=== PATIENT | male | born 1935 | race Caucasian/White ===

== ENCOUNTER 2017-05-28 02:15 | Inpatient (IN) ==
[2017-05-28] MEDS ORDERED: ALUM/MAG/SIMETH/LIDO VISC 1:1 30 ML BOTTLE PO STA (03:00)
[2017-05-28] MEDS ORDERED: ONDANSETRON 4 MG/2 ML VIAL IV STA (03:00)
[2017-05-28] MEDS ORDERED: FUROSEMIDE 40 MG/4 ML VIAL IV STA (03:00)
[2017-05-28] MEDS ORDERED: NITROGLYCERIN 2% OINT 1 INCH/GM PACK TOP STA (03:00)
[2017-05-28] MEDS ORDERED: methylPREDNISolone SOD SUC 125 MG/2 ML VIAL IV STA (03:00)
[2017-05-28] MEDS ORDERED: MORPHINE 2 MG/1 ML SYRINGE IV STA (03:00)
[2017-05-28] MEDS ORDERED: ASPIRIN 325 MG TABLET PO STA (03:00)
--- NOTE | 2017-05-28 03:04 | EKG Report ---
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
[2017-05-28 03:12] LABS: Basophils % 0.4 % (0.0-0.8); Eosinophils # 0.2 10*3/uL (0.0-0.87); Eosinophils % 4.1 % (0.00-10.9); Hematocrit 27.8 VOL% (42.0-52.0); Hemoglobin 8.8 GM/DL (14.0-18.0); Immature Granulocytes % 0.4 %; Immature Granulocytes Absolute 0.02 #; Lymphocytes # 1.3 10*3/uL (1.4-4.0); Lymphocytes % 25.5 % (21.2-54.2); Mean Corpuscular HGB Conc 31.7 GM/DL (32-36); Mean Corpuscular Hemoglobin 24 PG (27-34); Mean Corpuscular Volume 75.7 FL (87-102); Monocytes # 0.5 10*3/uL (0.11-0.8); Monocytes % 9.2 % (1.7-12.7); Neutrophils # 3.1 10*3/uL (1.4-7.4); Neutrophils % 60.4 % (38.7-73.9); Platelet Count 121 T/CUMM (130-400); Red Blood Count 3.67 MC/CUMM (3.8-5.5); Red Cell Distribution Width 17.9 % (9.3-17.3); White Blood Count 5.1 T/CUMM (4-12)
[2017-05-28 03:20] LABS: PT Patient Result 10.7 SECS
[2017-05-28] MEDS ORDERED: NITROGLYCERIN 2% OINT 1 INCH/GM PACK TOP ONE (03:26)
[2017-05-28] MEDS ORDERED: ONDANSETRON 4 MG/2 ML VIAL ONE (03:27)
[2017-05-28] MEDS ORDERED: ASPIRIN 325 MG TABLET ONE (03:27)
[2017-05-28] MEDS ORDERED: MORPHINE 2 MG/1 ML SYRINGE ONE (03:27)
[2017-05-28] MEDS ORDERED: ALUM/MAG/SIMETH/LIDO VISC 1:1 30 ML BOTTLE PO ONE (03:27)
[2017-05-28] MEDS ORDERED: methylPREDNISolone SOD SUC 125 MG/2 ML VIAL ONE (03:27)
[2017-05-28] MEDS ORDERED: FUROSEMIDE 100 MG/10 ML VIAL ONE (03:27)
[2017-05-28 03:41] LABS: Albumin 3.4 G/DL (3.4-5.0); Bilirubin,Total 0.6 MG/DL (0.2-1.0); Calcium 8.5 MG/DL (8.5-10.1); Magnesium 2.2 MG/DL (1.8-2.4); Osmolality,Calculated 284.2 MOS/KG (273-304); Potassium 3.6 MMOL/L (3.5-5.1); Total Protein 7.2 G/DL (6.4-8.3)
--- NOTE | 2017-05-28 03:47 | Emergency Department Note ---
Whitney Dennis Rolonda, am scribing for, and in the presence of, Murphy Arnold MD 03:26. Clayton Dennis Charles R, MD, personally performed the services described in this documentation, ascribed by Tello Olsno in my presence, and it is both accurate and complete 347 . Arrival - Arrival Chief Complaint: Chest Pain Stated Complaint: chest pain ED Nursing Triage Note: patient c/o chest pain for a week with sob, denies n/ v. states he has pain throughout whole body and elevated blood sugar. Mode of Arrival: Wheelchair Limitations: No Limitations Source: Patient, Old Records Reviewed, RN Notes Reviewed Time Seen by Provider: 05/28/17 02:39 - History of Present Illness HPI Narrative: Pt is a 81 y/o male who presents to the ED via wheelchair with c/o chest pain with an onset of x1 week. Pt has a PMHx of DM, HTN, SD, CABG, and Cardiovascular problems. Pt's states that pt's blood sugar has been 437 since 0900 tonight and they could not get it lowered. Nurses' note states that pt has pain throughout entire body during time of triage; during exam pt was pain free. Pt denies smoking but confirms SOB. He is f/u by Dr. Dexter. No other complaint/pain in ED. Onset (ago): week(s) Consistency: constant Severity: moderate Severity scale (1-10): 4 Allergies/Adverse Reactions: Allergies Allergy/AdvReac Type Severity Reaction Status Date / Time No Known Allergies Allergy Verified 05/21/17 18:29 Home Medications: Home Medications Medication Instructions Recorded Confirmed Type Aspirin [Ecotrin] 81 mg PO DAILY 04/16/15 05/28/17 History Colestipol [Colestid] 1 gm PO DAILY 04/16/15 05/28/17 History Furosemide Tab [Lasix Tab] 20 mg PO BID 04/16/15 05/28/17 History Gabapentin [Gralise] 600 mg PO TID 04/16/15 05/28/17 History LORazepam [Lorazepam] 1 mg PO QID 04/16/15 05/28/17 History Multivit-Min/FA/Lycopen/Lutein 1 each PO DAILY 04/16/15 05/28/17 History [Centrum Silver Tablet] Rosuvastatin [Crestor] 20 mg PO BEDTIME 04/16/15 05/28/17 History HYDROcodone/ACETAMIN 10-325 [[place] 1 tablet PO Q4H 07/01/15 05/28/17 History 10-325] Tamsulosin [Flomax] 0.4 mg PO BID 07/01/15 05/28/17 History Carvedilol 3.125 mg PO BID 12/02/16 05/28/17 History Isosorbide Mononitrate [Isosorbide 60 mg PO DAILY 12/02/16 05/28/17 History Mononitrate ER] Nitroglycerin [Nitroglycerin SL 0.4 mg SL Q5M PRN 12/02/16 05/28/17 History Tab] Sitagliptin Phosphate [Januvia] 50 mg PO DAILY 12/02/16 05/28/17 History Ciprofloxacin HCl [Ciprofloxacin 500 mg PO BID 05/21/17 05/28/17 History Tab] Cyanocobalamin Tab [Vitamin B12 500 mcg PO DAILY 05/21/17 05/28/17 History Tab] Folic Acid Tab 0.4 mg PO DAILY 05/21/17 05/28/17 History Insulin Glargine,Hum.rec.anlog 10 unit SUBCUT BID 05/21/17 05/28/17 History [Tomyrna Cheek] Levothyroxine Sodium 50 mcg PO DAILY 05/21/17 05/28/17 History Potassium 99 mg PO DAILY 05/21/17 05/28/17 History fentaNYL 25 MCG/HR PATCH 1 patch TRANSDERM Q3DAY #5 patch 05/21/17 05/28/17 Rx [Duragesic 25 Patch] Review of System - Review of System 12 point system: reviewed and no additional remarkable complaints except as stated - Review of System Constitutional: Absent: chills, fever Eyes: Absent: redness Respiratory: Present: respiratory distress (SOB) Cardiovascular: Present: chest pain Gastrointestinal: Absent: abdominal pain, nausea, vomiting Genitourinary male: Absent: urgency Musculoskeletal: Absent: arm pain, back pain, leg pain, neck pain Neurological: Absent: headache, weakness, numbness Psychiatric: Absent: anxiety Medical,Surgical,& Family Hx - Medical History Cardio: History of: CAD (CABG), Hypertension, SD (last one in 2014), Cardiovascular Problems (DR FERMIN) Psychological: History of: Anxiety Disorders, Depression Neurology: History of: Peripheral Neuropathy (in feet) No history of: Seizures HEENT: History of: Eye Problem (macular degeneration), Dental Problems (FULL SET ), Glaucoma Endocrine: History of: Diabetes Mellitus (IDDM) (oral meds), Diabetes Mellitus ( NIDDM), Dyslipidemia Respiratory: History of: COPD, Pneumonia (3-4 years ago) No history of: Asthma Genitourinary: History of: Bladder Problem (DR VALERIO) Gastrointestinal: History of: GERD Musculoskeletal: History of: Back/Neck Problems (TPC DR DC BACK INJ SCHEDULED), Herniated Disk, Musculoskeletal Problems (left total knee surgery on 06/26/15) Other: History of: Cancer (SKIN CANCER ARMS) - Surgical History Cardiac Surgeries: Sugical HX of: Cardiac Surgery (CABG twice) Abdominal Surgeries: Surgical HX of: Appendectomy, Colonoscopy, EGD Orthopedic Surgeries: Surgical HX of;: Total Knee Replacement (BILATERAL) - Family History Family History: Reports;: Family Diabetes (father) - Social History Smoking Status: Never smoker Frequency of Alcohol Use: None Type of Drug Use: None Exam Vital Signs: Vital Signs Temperature 98.2 F 05/28/17 02:17 Pulse Rate 152 H 05/28/17 02:17 Respiratory Rate 20 05/28/17 02:17 Blood Pressure 110/79 05/28/17 02:17 O2 Sat by Pulse Oximetry 79 L 05/28/17 02:17 - General General appearance: alert, in no apparent distress - Head Head exam: Present: atraumatic, normocephalic - Eye Eye exam: Present: PERRL, EOMI - ENT ENT exam: Present: mucous membranes moist. Absent: mucous membranes dry - Neck Neck exam: Present: full ROM. Absent: tenderness - Chest Chest inspection: Present: symmetric chest wall rise. Absent: tenderness - Respiratory Respiratory exam: Present: rales (bilaterally), rhonchi - Cardiovascular Cardiovascular exam: Present: regular rate, normal rhythm, normal heart sounds. Absent: bradycardia - Abdominal Exam Abdominal exam: Present: soft, normal bowel sounds. Absent: tenderness - Extremities Exam Extremities exam: Present: pedal edema (+1 bilaterally) - Back Exam Back exam: Present: full ROM. Absent: tenderness - Neurological Exam Neurological exam: Present: alert, oriented X3, CN II-XII intact - Psychiatric Psychiatric exam: Present: normal affect, normal mood - Skin Skin exam: Present: warm, dry, intact, normal color. Absent: rash Course - Consultations Consultation #1: Hospitalist will admit patient Time: 04:04 Results - Labs CBC & BMP: 05/28/17 03:03 05/28/17 03:03 Lab Results: I have reviewed the patients labs Disposition Clinical Impression: Chest pain, Debility, Chronic pain, Acute dyspnea, COPD (chronic obstructive pulmonary disease), Uncontrolled diabetes mellitus, Coronary artery disease Case discussed with: patient, patient's family Disposition: Still a Patient Condition: Stable Time of Disposition: 03:56
[2017-05-28] MEDS ORDERED: ONDANSETRON 4 MG/2 ML VIAL IV PRN (04:28)
[2017-05-28] MEDS ORDERED: GLUCAGON 1 MG VIAL IM PRN (04:28)
[2017-05-28] MEDS ORDERED: DEXTROSE 50% 25 GM/50 ML VIAL IV PRN (04:28)
[2017-05-28] MEDS ORDERED: ACETAMINOPHEN 325 MG TABLET PO PRN (04:28)
[2017-05-28] MEDS ORDERED: NITROGLYCERIN SL 0.4 MG TABLET SL PRN (04:39)
[2017-05-28 04:40] LABS: Anisocytosis 1+; Hypochromasia Slight
[2017-05-28 04:41] LABS: Ovalocytes 1+; Platelet Estimate Adequate
--- NOTE | 2017-05-28 04:57 | Hospitalist History & Physical ---
Assessment and Plan - Time spent with patient Time spent with patient: Greater than 30 minutes (1) Chest pain at rest Status: Acute Current Visit: Yes (2) Diabetes Status: Acute Current Visit: Yes (3) UVALDO (acute kidney injury) Status: Acute Current Visit: Yes (4) Chronic pain Status: Acute Assessment and plan: Admit to the hospitalist service on telemetry. Consult cardiology. Continue home medications as appropriate. Accu-Cheks before meals and at bedtime with supplemental sliding scale. Obtain hemoglobin A1c,TSH, and lipid profile in the a.m. Trend cardiac enzymes. Avoid adding additional pain medication as patient is currently wearing a patch. Elevated creatinine likely related to diabetes and use of diuretics. Avoid nephrotoxic medications as much as possible. Current Visit: Yes History of Present Illness Chief complaint: Chest Pain History of present illness: Mr. Akbar is a 81 year old male with a past medical history coronary artery disease with CABG 2, uncontrolled diabetes, COPD with home oxygen use, chronic pain, recently diagnosed urinary tract infection on Cipro presented to the ED today with chief complaint of chest pain. The patient reports having pain all over his body but today has started to have a chest pain. He reports the pain is a "tight type". Patient is currently free of pain. He reports that he was doing nothing when the pain began to the at the bedside indicates that they were having a slight argument. Initial workup in ED included H&H of 8.8 27.8, INR 1, sodium 134, creatinine 1.5, glucose 383, AST 48,troponin less than 0.015. He will be admitted to the telemetry unit under service of hospitalist for further evaluation treatment. Home Medications Medication Instructions Recorded Confirmed Type Aspirin [Ecotrin] 81 mg PO DAILY 04/16/15 05/28/17 History Colestipol [Colestid] 1 gm PO DAILY 04/16/15 05/28/17 History Furosemide Tab [Lasix Tab] 20 mg PO BID 04/16/15 05/28/17 History Gabapentin [Gralise] 600 mg PO TID 04/16/15 05/28/17 History LORazepam [Lorazepam] 1 mg PO QID 04/16/15 05/28/17 History Multivit-Min/FA/Lycopen/Lutein 1 each PO DAILY 04/16/15 05/28/17 History [Centrum Silver Tablet] Rosuvastatin [Crestor] 20 mg PO BEDTIME 04/16/15 05/28/17 History HYDROcodone/ACETAMIN 10-325 [[place] 1 tablet PO Q4H 07/01/15 05/28/17 History 10-325] Tamsulosin [Flomax] 0.4 mg PO BID 07/01/15 05/28/17 History Carvedilol 3.125 mg PO BID 12/02/16 05/28/17 History Isosorbide Mononitrate [Isosorbide 60 mg PO DAILY 12/02/16 05/28/17 History Mononitrate ER] Nitroglycerin [Nitroglycerin SL 0.4 mg SL Q5M PRN 12/02/16 05/28/17 History Tab] Sitagliptin Phosphate [Januvia] 50 mg PO DAILY 12/02/16 05/28/17 History Ciprofloxacin HCl [Ciprofloxacin 500 mg PO BID 05/21/17 05/28/17 History Tab] Cyanocobalamin Tab [Vitamin B12 500 mcg PO DAILY 05/21/17 05/28/17 History Tab] Folic Acid Tab 0.4 mg PO DAILY 05/21/17 05/28/17 History Insulin Glargine,Hum.rec.anlog 10 unit SUBCUT BID 05/21/17 05/28/17 History [Petty Cheek] Levothyroxine Sodium 50 mcg PO DAILY 05/21/17 05/28/17 History Potassium 99 mg PO DAILY 05/21/17 05/28/17 History fentaNYL 25 MCG/HR PATCH 1 patch TRANSDERM Q3DAY #5 patch 05/21/17 05/28/17 Rx [Duragesic 25 Patch] Allergies Allergy/AdvReac Type Severity Reaction Status Date / Time No Known Allergies Allergy Verified 05/21/17 18:29 Medical,Surgical,& Family Hx - Medical History Cardio: History of: CHF, CAD (CABG), Hypertension, VT (last one in 2014), Cardiovascular Problems (DR FERMIN) Psychological: History of: Anxiety Disorders, Depression Neurology: History of: Peripheral Neuropathy (in feet) No history of: Seizures HEENT: History of: Eye Problem (macular degeneration), Dental Problems (FULL SET ), Glaucoma Endocrine: History of: Diabetes Mellitus (NIDDM), Dyslipidemia Respiratory: History of: COPD, Pneumonia (3-4 years ago) No history of: Asthma Genitourinary: History of: Bladder Problem (DR VALERIO) Gastrointestinal: History of: GERD Musculoskeletal: History of: Back/Neck Problems (TPC DR DC BACK INJ SCHEDULED), Herniated Disk, Musculoskeletal Problems (left total knee surgery on 06/26/15) Other: History of: Cancer (SKIN CANCER ARMS) - Surgical History Cardiac Surgeries: Sugical HX of: Cardiac Surgery (CABG twice) Abdominal Surgeries: Surgical HX of: Appendectomy, Colonoscopy, EGD Orthopedic Surgeries: Surgical HX of;: Total Knee Replacement (BILATERAL) - Family History Family History: Reports;: Family Diabetes (father) - Social History Smoking Status: Former smoker Have you smoked in the last 12 months: No Frequency of Alcohol Use: Occasionally Type of Drug Use: None Marital Status: Lives With:: Spouse Functional capacity: uses cane/walker - Constitutional Constitutional: Present: frequent falls - EENT Eyes: Present: loss of vision - Cardiovascular Cardiovascular: Present: chest pain at rest, dyspnea - Respiratory Respiratory: Present: dyspnea on exertion - Neurological Neurological: Present: frequent falls Exam - Constitutional Vitals: Period Temp Pulse Resp BP Sys/Lowry Pulse Ox Last 24 Hr 88 20 166/68 98 General appearance: no acute distress, morbidly obese - Head Head exam: Present: normal inspection - Eye Pupils: Present: JOZEF - ENT ENT exam: Present: normal exam, other (Dentures) - Neck Neck exam: Present: normal inspection - Respiratory Respiratory exam: Present: clear to auscultation bilaterally, decreased breath sounds - Cardiovascular Cardiovascular exam: Present: regular rate and rhythm - GI/Abdominal GI/Abdominal exam: Present: normal bowel sounds - Extremities Exam Extremities exam: Present: normal inspection - Neurological Exam Neurological exam: Present: alert, oriented X3 - Psychiatric Psychiatric exam: Present: normal affect - Skin Skin exam: Present: normal color Results - Labs CBC & BMP: 05/28/17 03:03 05/28/17 03:03 - EKG EKG results: interpreted by VIVIAN KLINE Quality Measures - VTE Contraindication to Pharmacological VTE Prophylaxis: Clinical assessment deems Pt at low risk, no prophalaxis needed
--- NOTE | 2017-05-28 07:17 | XRay Report ---
Portable chest. Indication: Chest pain. Comparison: October 25, 2014. The heart is enlarged with left ventricular hypertrophy. Post median sternotomy. The pulmonary vasculature is normal. The lung martínez are clear. No pneumothorax or pleural effusion. Calcified 10 mm granuloma in the left midlung field, stable. Degenerative changes are present within the spinal column and shoulders. Impression: Stable cardiomegaly. PROCEDURE INTERPRETED AT [facility] DEPARTMENT OF RADIOLOGY Final Report Signed by: Dr. Sandra Aguilar
[2017-05-28] MEDS: LEVOTHYROXINE 50 MCG TABLET PO SCH (08:04)
[2017-05-28 08:50] LABS: Risk Ratio 2.73; Thyroid Stimulating Hormone 4.55 uIU/ml (0.358-3.74); VLDL CHOLESTEROL 48.4 MG/DL
[2017-05-28] MEDS ORDERED: TAMSULOSIN 0.4 MG CAPSULE PO SCH (09:00)
[2017-05-28] MEDS ORDERED: sitaGLIPtin 100 MG TABLET PO SCH (09:00)
[2017-05-28] MEDS ORDERED: INSULIN GLARGINE 100 UNIT/ML SUBCUT SCH (09:00)
[2017-05-28] MEDS: INSULIN REGULAR 100 UNIT/ML SUBCUT SCH ×2 (09:17→11:52)
[2017-05-28] MEDS: CYANOCOBALAMIN 500 MCG TABLET PO SCH (09:19)
[2017-05-28] MEDS: CARVEDILOL 3.125 MG TABLET PO SCH ×2 (09:19→20:04)
[2017-05-28] MEDS: ASPIRIN EC 81 MG TABLET PO SCH (09:19)
[2017-05-28] MEDS: GABAPENTIN 600 MG TABLET PO SCH ×3 (09:19→20:04)
[2017-05-28] MEDS: MULTIVITAMIN (CENTRUM) TABLET PO SCH (09:19)
[2017-05-28] MEDS: COLESTIPOL 1 GM TABLET PO SCH (09:19)
[2017-05-28] MEDS: ISOSORBIDE MONONITRATE 60 MG TABLET PO SCH (09:19)
[2017-05-28] MEDS: POTASSIUM CHLORIDE 20 MEQ TABLET PO SCH (09:19)
[2017-05-28] MEDS: LORazepam 1 MG TABLET PO SCH ×3 (09:20→16:02)
[2017-05-28] MEDS: FOLIC ACID 0.4 MG TABLET PO SCH (09:20)
[2017-05-28] MEDS: FUROSEMIDE 20 MG TABLET PO SCH ×2 (09:20→16:03)
--- NOTE | 2017-05-28 10:12 | EKG Report ---
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
[2017-05-28] MEDS ORDERED: INSULIN REGULAR 100 UNIT/ML IV ONE ×2 (11:34→15:49)
--- NOTE | 2017-05-28 14:16 | Hospitalist Progress Note ---
Assessment and Plan (1) Chest pain Problem details: Acute coronary syndrome is unlikely. Continue to cycle cardiac enzymes, monitor with telemetry, check LVEF and wall motion on echocardiogram. Status: Acute Current Visit: Yes (2) COPD (chronic obstructive pulmonary disease) Problem details: Acute exacerbation. No identified precipitating factors. Patient is not likely have significant CO2 retention. Continue low flow nasal cannula supplemental oxygen therapy. Patient is not receiving empiric antibiotic therapy at present. If his clinical status does not improve within the next 24 hours consider the addition of empiric antibiotics. Status: Acute Current Visit: Yes (3) Acute kidney injury Problem details: Today's BUN/creatinine measure 15 and 1.5 respectively GFR calculates 57 mL/min. No previous BMP lab data is available for comparison. Patient received IV Lasix dose in emergency department. Recheck BMP in a.m. Status: Acute Current Visit: Yes (4) Type 2 diabetes mellitus Problem details: Poor glucose control. Bedside glucose checks have been greater than 400 with one reading greater than 500 mg percent. I recommend increase basal Lantus dose twice daily. Add mealtime NovoLog. Continue sliding scale NovoLog protocol coverage. Hemoglobin A1c 12.9% Status: Acute Current Visit: Yes (5) Chronic pain Problem details: Patient is wearing topical fentanyl. I recommend topical diclofenac gel with Lidoderm topical patch. Continue gabapentin. This is my recommendation however patient insists that he must continue Duragesic and that his primary care physician has tried multiple nonnarcotic combinations and only Duragesic helps to relieve his pain. Status: Acute Current Visit: Yes (6) Hypothyroidism Problem details: Modest elevation of TSH level within normal range free T4 level. Recommend continue 50 mcg daily Synthroid supplementation. Recheck lab panel within the next 2-3 months. Status: Acute Current Visit: Yes (7) Obesity Problem details: BMI is reported at 29.4 kg I requested repeat measurement suspected patient's body weight is much higher than 100 kg Status: Acute Current Visit: Yes Hospitalist: Subjective Interval history: Patient is a 81-year-old male admitted for evaluation of chest pain complaints. Patient has a history of coronary artery disease with previous bypass surgery. He also has chronic lung disease requiring home supplemental oxygen use. Cardiology consultation already ordered. Exam - Constitutional Vitals: Period Temp Pulse Resp BP Sys/Lowry Pulse Ox Last 24 Hr 97.2 F-98.3 F 77-152 19-20 110-181/66-94 79-100 General appearance: over weight - Head Head exam: Present: normal inspection - Eye Eye exam: Present: EOMI Pupils: Present: JOZEF - Neck Neck exam: Absent: meningismus, tenderness - Respiratory Respiratory exam: Present: clear to auscultation bilaterally. Absent: accessory muscle use, chest wall tenderness, rales, wheezes - Cardiovascular Cardiovascular exam: Present: regular rate and rhythm - GI/Abdominal GI/Abdominal exam: Present: normal bowel sounds, other (Protuberant with large pannus) - Extremities Exam Extremities exam: Present: normal inspection. Absent: calf tenderness, edema - Neurological Exam Neurological exam: Present: alert, oriented X3 - Psychiatric Psychiatric exam: Present: normal affect, normal mood. Absent: agitated, anxious, depressed - Skin Skin exam: Present: normal color, warm, dry. Absent: petechiae, rash Results - Labs CBC & BMP: 05/28/17 03:03 05/28/17 08:21 - Diagnostic Findings Procedure: Chest x-ray: other (Today's study reported enlarged cardiac silhouette with LVH. Previous sternotomy changes. Normal pulmonary vasculature. Clear lung martínez. Calcified 10 mm granuloma left mid lung field. Stable compared with previous chest x-ray October 25, 2014.) Quality Measures - VTE Contraindication to Pharmacological VTE Prophylaxis: Clinical assessment deems Pt at low risk, no prophalaxis needed
[2017-05-28 15:38] LABS: Osmolality,Calculated 294.9 MOS/KG (273-304); Potassium 4.6 MMOL/L (3.5-5.1)
[2017-05-28] MEDS: fentaNYL 25 MCG/HR PATCH TRANSDERM SCH (16:02)
[2017-05-28] MEDS ORDERED: INSULIN REGULAR 100 UNIT/ML SUBCUT SCH (16:30)
[2017-05-28] MEDS: INSULIN REGULAR DRIP 100 ML IV SCH (17:35)
--- NOTE | 2017-05-28 17:42 | Cardiology Consult Note ---
Assessment and Plan - Time spent with patient Time spent with patient: Greater than 30 minutes (1) Chest pain in adult Status: Acute Assessment and plan: Differential diagnosis of chest pain would be chest wall pain, esophageal, gastritis, gallbladder disease, stress or anxiety, or less likely CAD. The fact he has had several hours of pain and negative cardiac isoenzymes make the chance that this is CAD/ACS much less likely Plan/recommendation: Continued good treatment for CAD-optimal medical therapy, as you are doing Aspirin per day-as you are doing- Treat chest wall pain-tramadol, Tylenol, gabapentin Avoid Aleve because of his renal dysfunction In the course of the evaluation, it was decided the patient needed to have an echocardiogram for the pts management. It was ordered. I will review it. It was not done today, so it could be done tomorrow. GI cocktail Does not need a heart cath At some point, when his diabetes better and he gets outpatient we can do an outpatient stress test with Cardiolite. It does not seem to be urgent at this time. The above was discussed with the patient and his and daughter. They voiced understanding and agree with the plan. Thank you for allowing me to participate in this patient's care Current Visit: Yes (2) Elevated serum creatinine Status: Acute Current Visit: Yes (3) COPD (chronic obstructive pulmonary disease) Status: Acute Current Visit: Yes (4) Chronic pain Problem details: Patient is wearing topical fentanyl. I recommend topical diclofenac gel with Lidoderm topical patch. Continue gabapentin. This is my recommendation however patient insists that he must continue Duragesic and that his primary care physician has tried multiple nonnarcotic combinations and only Duragesic helps to relieve his pain. Status: Acute Current Visit: Yes (5) Coronary artery disease Status: Acute Current Visit: Yes (6) Debility Status: Acute Current Visit: Yes (7) Hypothyroidism Problem details: Modest elevation of TSH level within normal range free T4 level. Recommend continue 50 mcg daily Synthroid supplementation. Recheck lab panel within the next 2-3 months. Status: Acute Current Visit: Yes (8) Obesity Problem details: BMI is reported at 29.4 kg I requested repeat measurement suspected patient's body weight is much higher than 100 kg Status: Acute Current Visit: Yes (9) Type 2 diabetes mellitus Problem details: Poor glucose control. Bedside glucose checks have been greater than 400 with one reading greater than 500 mg percent. I recommend increase basal Lantus dose twice daily. Add mealtime NovoLog. Continue sliding scale NovoLog protocol coverage. Hemoglobin A1c 12.9% Status: Acute Current Visit: Yes (10) Uncontrolled diabetes mellitus Status: Acute Current Visit: Yes History of Present Illness - Data of Consult Patient: new to practice Consult date: 05/28/17 Requesting Physician: Fernando Camarena III Primary care physician: Fabiola Dexter - Consult Narrative Reason for consult: Evaluate chest pain History of present illness: Mr. 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 Fermin-they no longer see him, or open to seeing a new nursing home admissions director Patient is 81. He had 2 prior bypass. Last one was over 5 years ago. He does not remember when the last one was done but it was years ago.. He comes in hurting all over. But he particular hard in his chest and took some nitro. It had partial relief. It was a tightness across his chest. It did not radiate to his arms neck or back. It lasted 2 hours so he came in. No associated shortness breath, nausea or diaphoresis. No dysphagia odynophagia or GE reflux. His reflux is controlled with his reflux medication Past medical history: Coronary bypass grafting-2 times, last one many years ago Diabetes 2 total knee replacement Overweight Does have snoring apnea and excessive daytime somnolence-he says he had a workup that was done at [facility]-he was told he did not have sleep apnea-? Does not smoke cigarettes or drink alcohol at this time Has COPD There is a family history of coronary disease diabetes SPH: no, cannot, yes, yes and yes. [facility] Review of systems is remarkable for macular degeneration and cataracts. CC: Fernando Camarena III - Home Medications and Allergies Home Medications: Home Medications Medication Instructions Recorded Confirmed Type Aspirin [Ecotrin] 81 mg PO DAILY 04/16/15 05/28/17 History Colestipol [Colestid] 1 gm PO DAILY 04/16/15 05/28/17 History Furosemide Tab [Lasix Tab] 20 mg PO BID 04/16/15 05/28/17 History Gabapentin [Gralise] 600 mg PO TID 04/16/15 05/28/17 History LORazepam [Lorazepam] 1 mg PO QID 04/16/15 05/28/17 History Multivit-Min/FA/Lycopen/Lutein 1 each PO DAILY 04/16/15 05/28/17 History [Centrum Silver Tablet] Rosuvastatin [Crestor] 20 mg PO BEDTIME 04/16/15 05/28/17 History HYDROcodone/ACETAMIN 10-325 [Lizella 1 tablet PO Q4H 07/01/15 05/28/17 History 10-325] Tamsulosin [Flomax] 0.4 mg PO BID 07/01/15 05/28/17 History Carvedilol 3.125 mg PO BID 12/02/16 05/28/17 History Isosorbide Mononitrate [Isosorbide 60 mg PO DAILY 12/02/16 05/28/17 History Mononitrate ER] Nitroglycerin [Nitroglycerin SL 0.4 mg SL Q5M PRN 12/02/16 05/28/17 History Tab] Sitagliptin Phosphate [Januvia] 50 mg PO DAILY 12/02/16 05/28/17 History Ciprofloxacin HCl [Ciprofloxacin 500 mg PO BID 05/21/17 05/28/17 History Tab] Cyanocobalamin Tab [Vitamin B12 500 mcg PO DAILY 05/21/17 05/28/17 History Tab] Folic Acid Tab 0.4 mg PO DAILY 05/21/17 05/28/17 History Insulin Glargine,Hum.rec.anlog 10 unit SUBCUT BID 05/21/17 05/28/17 History [Petty Cheek] Levothyroxine Sodium 50 mcg PO DAILY 05/21/17 05/28/17 History Potassium 99 mg PO DAILY 05/21/17 05/28/17 History fentaNYL 25 MCG/HR PATCH 1 patch TRANSDERM Q3DAY #5 patch 05/21/17 05/28/17 Rx [Duragesic 25 Patch] Allergies/Adverse Reactions: Allergies Allergy/AdvReac Type Severity Reaction Status Date / Time No Known Allergies Allergy Verified 05/21/17 18:29 12 point system: reviewed and no additional remarkable complaints except as stated (A 12 point review of systems is negative except for as mentioned in HPI. ) Medical,Surgical,& Family Hx - Medical History Cardio: History of: CHF, CAD (CABG), Hypertension, SD (last one in 2014), Cardiovascular Problems (DR FERMIN) Psychological: History of: Anxiety Disorders, Depression Neurology: History of: Peripheral Neuropathy (in feet) No history of: Seizures HEENT: History of: Eye Problem (macular degeneration), Dental Problems (FULL SET ), Glaucoma Endocrine: History of: Diabetes Mellitus (IDDM) (oral meds), Diabetes Mellitus ( NIDDM), Dyslipidemia Respiratory: History of: COPD, Pneumonia (3-4 years ago) No history of: Asthma Genitourinary: History of: Bladder Problem (DR VALERIO) Gastrointestinal: History of: GERD Musculoskeletal: History of: Back/Neck Problems (TPC DR DC BACK INJ SCHEDULED), Herniated Disk, Musculoskeletal Problems (left total knee surgery on 06/26/15) Other: History of: Cancer (SKIN CANCER ARMS) - Surgical History Cardiac Surgeries: Sugical HX of: Cardiac Surgery (CABG twice) Abdominal Surgeries: Surgical HX of: Appendectomy, Colonoscopy, EGD Orthopedic Surgeries: Surgical HX of;: Total Knee Replacement (BILATERAL) - Family History Family History: Reports;: Family Diabetes (father) - Social History Smoking Status: Former smoker Frequency of Alcohol Use: Occasionally Type of Drug Use: None Marital Status: Lives With:: Spouse Physical Examination Vital Signs Temp Pulse Resp BP Pulse Ox 98.2 F 152 H 20 110/79 79 L 05/28/17 02:17 05/28/17 02:17 05/28/17 02:17 05/28/17 02:17 05/28/17 02:17 Exam: HEENT: Pupils equal, reactive to light and accommodation Neck: NoJVD or bruit Lungs clear to auscultation Heart: Regular rhythm rate with normal S1 and S2. Apical S4 Abdomen: No hepatosplenomegaly Spine/extremities: No clubbing, cyanosis, or edema Neuro: Nonfocal Psych: No depression or anxiety No chest wall tenderness Femoral pulses are 3+. Foot pulses are 2+. Result/EKG - Labs CBC & BMP: 05/28/17 03:03 05/28/17 14:57 Lab Results: I have reviewed the past 24 hour labs Labs: Laboratory Results - last 24 hr 05/28/17 05/28/17 05/28/17 03:03 03:03 03:03 WBC RBC Hgb Hct MCV MCH MCHC RDW Plt Count Neut % (Auto) Lymph % (Auto) [place] % (Auto) Eos % (Auto) Baso % (Auto) Neut # (Auto) Lymph # (Auto) [place] # (Auto) Eos # (Auto) Baso # (Auto) Immature Gran % Nucleated RBC % Immature Gran # Nucleated RBCs # Platelet Estimate Hypochromasia Anisocytosis Ovalocytes INR 1.0 PT Patient/Control Mix 10.7 Sodium 134 L Potassium 3.6 Chloride 98 Carbon Dioxide 29 Anion Gap 10.6 BUN 15 Creatinine 1.50 H GFR Calculation 57 BUN/Creatinine Ratio 10.00 Glucose 383 H POC Glucose Hemoglobin A1c Calculated Osmolality 284.2 Calcium 8.5 Magnesium 2.2 Total Bilirubin 0.60 AST 48 H ALT 28 Alkaline Phosphatase 92 Troponin I < 0.015 B-Natriuretic Peptide Total Protein 7.2 Albumin 3.4 Globulin 3.8 H Albumin/Globulin Ratio 0.8 L Triglycerides Cholesterol LDL Cholesterol VLDL Cholesterol HDL Cholesterol Heart Disease Risk Ratio Lipase 264.0 Free T4 TSH 3rd Generation 05/28/17 05/28/17 05/28/17 03:03 03:03 07:10 WBC 5.1 RBC 3.67 L Hgb 8.8 L Hct 27.8 L MCV 75.7 L MCH 24 L MCHC 31.7 L RDW 17.9 H Plt Count 121 L Neut % (Auto) 60.4 Lymph % (Auto) 25.5 [place] % (Auto) 9.2 Eos % (Auto) 4.1 Baso % (Auto) 0.4 Neut # (Auto) 3.1 Lymph # (Auto) 1.3 L [place] # (Auto) 0.5 Eos # (Auto) 0.2 Baso # (Auto) 0.0 Immature Gran % 0.4 Nucleated RBC % 0.0 Immature Gran # 0.02 Nucleated RBCs # 0.00 Platelet Estimate Adequate Hypochromasia Slight Anisocytosis 1+ Ovalocytes 1+ INR PT Patient/Control Mix Sodium Potassium Chloride Carbon Dioxide Anion Gap BUN Creatinine GFR Calculation BUN/Creatinine Ratio Glucose POC Glucose Hemoglobin A1c Calculated Osmolality Calcium Magnesium Total Bilirubin AST ALT Alkaline Phosphatase Troponin I < 0.015 B-Natriuretic Peptide 54 Total Protein Albumin Globulin Albumin/Globulin Ratio Triglycerides Cholesterol LDL Cholesterol VLDL Cholesterol HDL Cholesterol Heart Disease Risk Ratio Lipase Free T4 TSH 3rd Generation 05/28/17 05/28/17 05/28/17 07:10 07:10 07:10 WBC RBC Hgb Hct MCV MCH MCHC RDW Plt Count Neut % (Auto) Lymph % (Auto) [place] % (Auto) Eos % (Auto) Baso % (Auto) Neut # (Auto) Lymph # (Auto) [place] # (Auto) Eos # (Auto) Baso # (Auto) Immature Gran % Nucleated RBC % Immature Gran # Nucleated RBCs # Platelet Estimate Hypochromasia Anisocytosis Ovalocytes INR PT Patient/Control Mix Sodium Potassium Chloride Carbon Dioxide Anion Gap BUN Creatinine GFR Calculation BUN/Creatinine Ratio Glucose POC Glucose Hemoglobin A1c 12.9 H Calculated Osmolality Calcium Magnesium Total Bilirubin AST ALT Alkaline Phosphatase Troponin I B-Natriuretic Peptide Total Protein Albumin Globulin Albumin/Globulin Ratio Triglycerides 242 H Cholesterol 112 LDL Cholesterol 42.0 VLDL Cholesterol 48.4 HDL Cholesterol 41 Heart Disease Risk Ratio 2.73 Lipase Free T4 1.42 TSH 3rd Generation 4.550 H 05/28/17 05/28/17 05/28/17 08:09 08:21 08:21 WBC RBC Hgb Hct MCV MCH MCHC RDW Plt Count Neut % (Auto) Lymph % (Auto) [place] % (Auto) Eos % (Auto) Baso % (Auto) Neut # (Auto) Lymph # (Auto) [place] # (Auto) Eos # (Auto) Baso # (Auto) Immature Gran % Nucleated RBC % Immature Gran # Nucleated RBCs # Platelet Estimate Hypochromasia Anisocytosis Ovalocytes INR PT Patient/Control Mix Sodium Potassium Chloride Carbon Dioxide Anion Gap BUN Creatinine GFR Calculation BUN/Creatinine Ratio Glucose 577 H* POC Glucose > 500 H* Hemoglobin A1c Calculated Osmolality Calcium Magnesium Total Bilirubin AST ALT Alkaline Phosphatase Troponin I < 0.015 B-Natriuretic Peptide Total Protein Albumin Globulin Albumin/Globulin Ratio Triglycerides Cholesterol LDL Cholesterol VLDL Cholesterol HDL Cholesterol Heart Disease Risk Ratio Lipase Free T4 TSH 3rd Generation 05/28/17 05/28/17 05/28/17 11:29 11:32 14:57 WBC RBC Hgb Hct MCV MCH MCHC RDW Plt Count Neut % (Auto) Lymph % (Auto) [place] % (Auto) Eos % (Auto) Baso % (Auto) Neut # (Auto) Lymph # (Auto) [place] # (Auto) Eos # (Auto) Baso # (Auto) Immature Gran % Nucleated RBC % Immature Gran # Nucleated RBCs # Platelet Estimate Hypochromasia Anisocytosis Ovalocytes INR PT Patient/Control Mix Sodium 129 L Potassium 4.6 Chloride 92 L Carbon Dioxide 27 Anion Gap 14.6 BUN 23 H Creatinine 2.00 H GFR Calculation 40 BUN/Creatinine Ratio 11.00 Glucose 694 H* POC Glucose > 500 H* > 500 H* Hemoglobin A1c Calculated Osmolality 294.9 Calcium 8.0 L Magnesium Total Bilirubin AST ALT Alkaline Phosphatase Troponin I B-Natriuretic Peptide Total Protein Albumin Globulin Albumin/Globulin Ratio Triglycerides Cholesterol LDL Cholesterol VLDL Cholesterol HDL Cholesterol Heart Disease Risk Ratio Lipase Free T4 TSH 3rd Generation 05/28/17 05/28/17 05/28/17 14:59 15:02 15:41 WBC RBC Hgb Hct MCV MCH MCHC RDW Plt Count Neut % (Auto) Lymph % (Auto) [place] % (Auto) Eos % (Auto) Baso % (Auto) Neut # (Auto) Lymph # (Auto) [place] # (Auto) Eos # (Auto) Baso # (Auto) Immature Gran % Nucleated RBC % Immature Gran # Nucleated RBCs # Platelet Estimate Hypochromasia Anisocytosis Ovalocytes INR PT Patient/Control Mix Sodium Potassium Chloride Carbon Dioxide Anion Gap BUN Creatinine GFR Calculation BUN/Creatinine Ratio Glucose POC Glucose > 500 H* > 500 H* > 500 H* Hemoglobin A1c Calculated Osmolality Calcium Magnesium Total Bilirubin AST ALT Alkaline Phosphatase Troponin I B-Natriuretic Peptide Total Protein Albumin Globulin Albumin/Globulin Ratio Triglycerides Cholesterol LDL Cholesterol VLDL Cholesterol HDL Cholesterol Heart Disease Risk Ratio Lipase Free T4 TSH 3rd Generation 05/28/17 17:01 WBC RBC Hgb Hct MCV MCH MCHC RDW Plt Count Neut % (Auto) Lymph % (Auto) [place] % (Auto) Eos % (Auto) Baso % (Auto) Neut # (Auto) Lymph # (Auto) [place] # (Auto) Eos # (Auto) Baso # (Auto) Immature Gran % Nucleated RBC % Immature Gran # Nucleated RBCs # Platelet Estimate Hypochromasia Anisocytosis Ovalocytes INR PT Patient/Control Mix Sodium Potassium Chloride Carbon Dioxide Anion Gap BUN Creatinine GFR Calculation BUN/Creatinine Ratio Glucose POC Glucose > 500 H* Hemoglobin A1c Calculated Osmolality Calcium Magnesium Total Bilirubin AST ALT Alkaline Phosphatase Troponin I B-Natriuretic Peptide Total Protein Albumin Globulin Albumin/Globulin Ratio Triglycerides Cholesterol LDL Cholesterol VLDL Cholesterol HDL Cholesterol Heart Disease Risk Ratio Lipase Free T4 TSH 3rd Generation - EKG EKG results: interpreted by me Quality Measures - VTE Contraindication to Pharmacological VTE Prophylaxis: Clinical assessment deems Pt at low risk, no prophalaxis needed
[2017-05-28] MEDS: ROSUVASTATIN 20 MG TABLET PO SCH (20:04)
[2017-05-28] MEDS: INSULIN GLARGINE 100 UNIT/ML SUBCUT SCH (20:04)
[2017-05-28] MEDS ORDERED: SODIUM CHLORIDE 0.9% 500 ML IV ONE (23:28)
[2017-05-29] MEDS: INSULIN REGULAR DRIP 100 ML IV SCH ×2 (04:51→19:14)
[2017-05-29] MEDS: LEVOTHYROXINE 50 MCG TABLET PO SCH (06:05)
[2017-05-29] MEDS ORDERED: INSULIN REGULAR 100 UNIT/ML SUBCUT SCH ×2 (07:30→11:30)
--- NOTE | 2017-05-29 08:44 | Hospitalist Progress Note ---
Assessment and Plan - Time spent with patient Time spent with patient: Greater than 30 minutes (1) UVALDO (acute kidney injury) Status: Acute Assessment and plan: IVF. Cr in am. Current Visit: Yes (2) Anemia Status: Chronic Assessment and plan: Monitor H/H. Do Iron study, B12 and delong. Current Visit: Yes (3) Chest pain Status: Acute Assessment and plan: Resolved. Troponin negative. Echo ordered. Cards f/u. Current Visit: Yes (4) Coronary artery disease Status: Acute Assessment and plan: Resume home meds appropriately. Current Visit: Yes (5) Type 2 diabetes mellitus Problem details: Poor glucose control. Bedside glucose checks have been greater than 400 with one reading greater than 500 mg percent. I recommend increase basal Lantus dose twice daily. Add mealtime NovoLog. Continue sliding scale NovoLog protocol coverage. Hemoglobin A1c 12.9% Status: Acute Assessment and plan: Continue current treatment plan. Chemstip as scheduled. Current Visit: Yes (6) Hypothyroidism Problem details: Modest elevation of TSH level within normal range free T4 level. Recommend continue 50 mcg daily Synthroid supplementation. Recheck lab panel within the next 2-3 months. Status: Acute Assessment and plan: T4 WNL. Current Visit: Yes Hospitalist: Subjective Interval history: No chest pain since adm to hospital yesterday. Had scrotal pain this morning but resolved now. Troponin 2 set WNL yesterday. Cr 2.0 yesterday, will repeat Cr /BUN today. Echo ordered today. Exam - Constitutional Vitals: Period Temp Pulse Resp BP Sys/Lowry Pulse Ox Last 24 Hr 97.0 F-98.5 F 69-87 14-25 99-174/68-91 94-100 Exam: GENERAL: NAD, AAOx3. Pale. HEENT: Pupils equally round and reactive to light, conjunctivae clear.Oropharynx pink, with moist mucous membranes. Normal lips, teeth and gums. NECK: Supple without mass. HEART: RRR, no murmur. CHEST: Normal shape, good air movement, no retractions. CV: RRR, no murmurs, 2+ peripheral pulses LUNGS: Clear to auscultation; no rales, rhonchi, or wheezes. ABDOMEN: Soft, nontender, and no hepatosplenomegaly. SKIN: No rash or edema. LYMPH: No anterior or posterior cervical, or supraclavicular lymphadenopathy. NEURO: No gross motor deficits noted. Results - Labs CBC & BMP: 05/28/17 03:03 05/28/17 23:18 Quality Measures - VTE Contraindication to Pharmacological VTE Prophylaxis: Clinical assessment deems Pt at low risk, no prophalaxis needed
[2017-05-29 09:01] LABS: Calcium 8.7 MG/DL (8.5-10.1); Magnesium 2.5 MG/DL (1.8-2.4); Potassium 3.5 MMOL/L (3.5-5.1)
[2017-05-29 09:14] LABS: % Iron Saturation 4.6 % (18-50); Ferritin 26.9 ng/ml (26-388)
[2017-05-29 09:41] LABS: Folate > 24.0 NG/ML (5.4-24.0); Vitamin B12 1538 PG/ML (211-911)
[2017-05-29] MEDS: GABAPENTIN 600 MG TABLET PO SCH ×3 (09:54→20:18)
[2017-05-29] MEDS: MULTIVITAMIN (CENTRUM) TABLET PO SCH (09:54)
[2017-05-29] MEDS: COLESTIPOL 1 GM TABLET PO SCH (09:54)
[2017-05-29] MEDS: FOLIC ACID 0.4 MG TABLET PO SCH (09:54)
[2017-05-29] MEDS: POTASSIUM CHLORIDE 20 MEQ TABLET PO SCH (09:54)
[2017-05-29] MEDS: ISOSORBIDE MONONITRATE 60 MG TABLET PO SCH (09:54)
[2017-05-29] MEDS: FUROSEMIDE 20 MG TABLET PO SCH ×2 (09:54→17:47)
[2017-05-29] MEDS: CYANOCOBALAMIN 500 MCG TABLET PO SCH (09:54)
[2017-05-29] MEDS: CARVEDILOL 3.125 MG TABLET PO SCH ×2 (09:55→20:18)
[2017-05-29] MEDS: ASPIRIN EC 81 MG TABLET PO SCH (09:55)
[2017-05-29] MEDS: SODIUM CHLORIDE 0.9% 1,000 ML IV SCH (10:05)
[2017-05-29] MEDS: INSULIN GLARGINE 100 UNIT/ML SUBCUT SCH ×2 (10:11→21:10)
--- NOTE | 2017-05-29 12:05 | Cardiology Progress Note ---
Assessment and Plan (1) Chest pain in adult Status: Acute Assessment and plan: Differential diagnosis of chest pain would be chest wall pain, esophageal, gastritis, gallbladder disease, stress or anxiety, or less likely CAD. The fact he has had several hours of pain and negative cardiac isoenzymes make the chance that this is CAD/ACS much less likely Plan/recommendation: Continued good treatment for CAD-optimal medical therapy, as you are doing Aspirin per day-as you are doing- Treat chest wall pain-tramadol, Tylenol, gabapentin Avoid Aleve because of his renal dysfunction In the course of the evaluation, it was decided the patient needed to have an echocardiogram for the pts management. It was ordered. I will review it. It was not done today, so it could be done tomorrow. GI cocktail Does not need a heart cath At some point, when his diabetes better and he gets outpatient we can do an outpatient stress test with Cardiolite. It does not seem to be urgent at this time. The above was discussed with the patient and his and daughter. They voiced understanding and agree with the plan. Thank you for allowing me to participate in this patient's care 7: no more chest pain--probable was muscle skeletal or GI Troponins are negative No ACS Continue treatment for his hyperglycemia Echo is being done today, per request of hospitalist I will review it. Okay with me, from a cardiovascular standpoint, to move patient out of ICU when you deem best. Current Visit: Yes (2) Elevated serum creatinine Status: Acute Current Visit: Yes (3) COPD (chronic obstructive pulmonary disease) Status: Acute Current Visit: Yes (4) Chronic pain Problem details: Patient is wearing topical fentanyl. I recommend topical diclofenac gel with Lidoderm topical patch. Continue gabapentin. This is my recommendation however patient insists that he must continue Duragesic and that his primary care physician has tried multiple nonnarcotic combinations and only Duragesic helps to relieve his pain. Status: Acute Current Visit: Yes (5) Coronary artery disease Status: Acute Current Visit: Yes (6) Debility Status: Acute Current Visit: Yes (7) Hypothyroidism Problem details: Modest elevation of TSH level within normal range free T4 level. Recommend continue 50 mcg daily Synthroid supplementation. Recheck lab panel within the next 2-3 months. Status: Acute Current Visit: Yes (8) Obesity Problem details: BMI is reported at 29.4 kg I requested repeat measurement suspected patient's body weight is much higher than 100 kg Status: Acute Current Visit: Yes (9) Type 2 diabetes mellitus Problem details: Poor glucose control. Bedside glucose checks have been greater than 400 with one reading greater than 500 mg percent. I recommend increase basal Lantus dose twice daily. Add mealtime NovoLog. Continue sliding scale NovoLog protocol coverage. Hemoglobin A1c 12.9% Status: Acute Current Visit: Yes (10) Uncontrolled diabetes mellitus Status: Acute Current Visit: Yes Cardiology - PN: Subj Interval history: His chest pain is gone. Glucoses remain high. Exam (Progress Note) - Constitutional Vitals: Period Temp Pulse Resp BP Sys/Lowry Pulse Ox Last 24 Hr 97.0 F-98.5 F 69-87 12-25 99-181/67-105 92-100 Exam: HEENT: Pupils equal, reactive to light and accommodation Neck: NoJVD or bruit Lungs clear to auscultation Heart: Regular rhythm rate with normal S1 and S2. Apical S4 Abdomen: No hepatosplenomegaly Spine/extremities: No clubbing, cyanosis, or edema Neuro: Nonfocal Psych: No depression or anxiety Result/EKG - Labs CBC & BMP: 05/28/17 03:03 05/29/17 08:19 Lab Results: I have reviewed the past 24 hour labs Labs: Laboratory Results - last 24 hr 05/28/17 05/28/17 05/28/17 14:57 14:59 15:02 Sodium 129 L Potassium 4.6 Chloride 92 L Carbon Dioxide 27 Anion Gap 14.6 BUN 23 H Creatinine 2.00 H GFR Calculation 40 BUN/Creatinine Ratio 11.00 Glucose 694 H* POC Glucose > 500 H* > 500 H* Calculated Osmolality 294.9 Calcium 8.0 L Magnesium Iron TIBC % Saturation Ferritin Vitamin B12 Folate 05/28/17 05/28/17 05/28/17 15:41 17:01 18:42 Sodium Potassium Chloride Carbon Dioxide Anion Gap BUN Creatinine GFR Calculation BUN/Creatinine Ratio Glucose POC Glucose > 500 H* > 500 H* > 500 H* Calculated Osmolality Calcium Magnesium Iron TIBC % Saturation Ferritin Vitamin B12 Folate 05/28/17 05/28/17 05/28/17 19:38 22:02 23:04 Sodium Potassium Chloride Carbon Dioxide Anion Gap BUN Creatinine GFR Calculation BUN/Creatinine Ratio Glucose POC Glucose > 500 H* > 500 H* > 500 H* Calculated Osmolality Calcium Magnesium Iron TIBC % Saturation Ferritin Vitamin B12 Folate 05/28/17 05/29/17 05/29/17 23:18 00:49 02:12 Sodium Potassium Chloride Carbon Dioxide Anion Gap BUN Creatinine GFR Calculation BUN/Creatinine Ratio Glucose 516 H* POC Glucose 472 H 394 H Calculated Osmolality Calcium Magnesium Iron TIBC % Saturation Ferritin Vitamin B12 Folate 05/29/17 05/29/17 05/29/17 03:19 03:56 04:58 Sodium Potassium Chloride Carbon Dioxide Anion Gap BUN Creatinine GFR Calculation BUN/Creatinine Ratio Glucose POC Glucose 274 H 172 H 154 H Calculated Osmolality Calcium Magnesium Iron TIBC % Saturation Ferritin Vitamin B12 Folate 05/29/17 05/29/17 05/29/17 06:19 08:19 08:19 Sodium 136 Potassium 3.5 Chloride 99 Carbon Dioxide 29 Anion Gap 11.5 BUN 27 H Creatinine 1.30 GFR Calculation 68 BUN/Creatinine Ratio 20.00 Glucose 94 POC Glucose 107 H Calculated Osmolality 276.0 Calcium 8.7 Magnesium 2.5 H Iron 21 L TIBC 455 H % Saturation 4.6 L Ferritin 26.9 Vitamin B12 Folate 05/29/17 05/29/17 05/29/17 08:19 08:31 09:09 Sodium Potassium Chloride Carbon Dioxide Anion Gap BUN Creatinine GFR Calculation BUN/Creatinine Ratio Glucose POC Glucose 108 H 188 H Calculated Osmolality Calcium Magnesium Iron TIBC % Saturation Ferritin Vitamin B12 1538 H Folate > 24.0 H 05/29/17 10:56 Sodium Potassium Chloride Carbon Dioxide Anion Gap BUN Creatinine GFR Calculation BUN/Creatinine Ratio Glucose POC Glucose 228 H Calculated Osmolality Calcium Magnesium Iron TIBC % Saturation Ferritin Vitamin B12 Folate - EKG EKG results: interpreted by id Quality Measures - VTE Contraindication to Pharmacological VTE Prophylaxis: Clinical assessment deems Pt at low risk, no prophalaxis needed
--- NOTE | 2017-05-29 15:41 | ECHO Report ---
Murphy Akbar Exam Date: 05/29/2017 10:26 Referring Physician: Technologist: Ca Saucedo Age: 81 Ht (in): 73 Wt (lb): 223 Gender: M Exam Location: [facility] Echo Indications: obesity, hypothyroidism, UVALDO, Diabetes, CAD, chest pain, acute dyspnea BP: 128 / 90 HR: 69 Rhythm: Sinus Technical Quality: Technically difficult study IMPRESSIONS Mild concentric left ventricular hypertrophy with diastolic dysfunctionmildly decreased left ventricular systolic function, left ventricular ejection fraction estimated at > 55%. Moderately increased right ventricular size. The right atrium is mild - moderately enlarged. 3 + increased left atrial diameter. Mildly thickened mitral valve with mild mitral regurgitation. Aortic valve sclerosis without stenosis or regurgitation. Mild tricuspid valve regurgitation. Tricuspid regurgitation velocities suggest a PAP of 22 mmHg. Trivial pericardial effusion. MEASUREMENTS (Male / Female) Normal Values 2D ECHO LV Diastolic Diameter PLAX 5.1 cm 4.2 - 5.9 / 3.9 - 5.3 cm LV Systolic Diameter PLAX 3.3 cm LV Fractional Shortening PLAX 35.8 % IVS Diastolic Thickness 1.3 cm 0.6 - 1.0 / 0.6 - 0.9 cm LVPW Diastolic Thickness 1.3 cm 0.6 - 1.0 / 0.6 - 0.9 cm RV Internal Dim ED PLAX 3.9 cm Aortic Root Diameter 3.6 cm LA Systolic Diameter LX 5.7 cm 3.0 - 4.0 / 2.7 - 3.8 cm DOPPLER TR Peak Velocity 170.0 cm/s TR Peak Gradient 11.6 mmHg FINDINGS Left Ventricle Mildly increased septal wall thickness. Mild concentric left ventricular hypertrophy with diastolic dysfunctionmildly decreased left ventricular systolic function, left ventricular ejection fraction estimated at > 55%. Right Ventricle Moderately increased right ventricular size. Right Atrium The right atrium is mild - moderately enlarged. Left Atrium 3 + increased left atrial diameter. Mitral Valve Mildly thickened mitral valve with mild mitral regurgitation. Aortic Valve Aortic valve sclerosis without stenosis or regurgitation. Tricuspid Valve Morphologically normal tricuspid valve. Mild tricuspid valve regurgitation. Tricuspid regurgitation velocities suggest a PAP of 22 mmHg. Pulmonic Valve Morphologically normal pulmonic valve. Pericardium Trivial pericardial effusion. Aorta Normal size aortic root and proximal ascending aorta. Marshall Au MD (Electronically Signed) Final Date: 29 May 2017 15:40
[2017-05-29] MEDS ORDERED: IRON SUCROSE 200 MG in SODIUM CHLORIDE 0.9% 100 ML IV ONE (16:30)
[2017-05-29] MEDS: ROSUVASTATIN 20 MG TABLET PO SCH (20:18)
[2017-05-30] MEDS: SODIUM CHLORIDE 0.9% 1,000 ML IV SCH ×2 (00:33→11:57)
[2017-05-30] MEDS ORDERED: SODIUM CHLORIDE 0.9% 500 ML IV ONE (01:46)
[2017-05-30] MEDS ORDERED: GLUCAGON 1 MG VIAL IM PRN (02:27)
[2017-05-30] MEDS ORDERED: DEXTROSE 50% 25 GM/50 ML VIAL IV PRN (02:27)
[2017-05-30] MEDS: INSULIN REGULAR 100 UNIT/ML SUBCUT SCH ×5 (05:15→21:28)
[2017-05-30 06:14] LABS: Calcium 7.6 MG/DL (8.5-10.1); Magnesium 2.5 MG/DL (1.8-2.4); Osmolality,Calculated 285.5 MOS/KG (273-304); Potassium 3.8 MMOL/L (3.5-5.1)
[2017-05-30] MEDS: LEVOTHYROXINE 50 MCG TABLET PO SCH (06:19)
--- NOTE | 2017-05-30 08:06 | Cardiology Progress Note ---
<Cleo Cali E - Last Filed: 05/30/17 07:54> Assessment and Plan - Time spent with patient Time spent with patient: Greater than 30 minutes (1) Hypertension Status: Chronic Assessment and plan: SEE PLAN OF CARE LISTED BELOW Current Visit: Yes (2) Dyslipidemia Status: Chronic Assessment and plan: SEE PLAN OF CARE LISTED BELOW Current Visit: Yes (3) Debility Status: Chronic Assessment and plan: SEE PLAN OF CARE LISTED BELOW Current Visit: Yes (4) Chest pain Status: Acute Assessment and plan: SEE PLAN OF CARE LISTED BELOW Current Visit: Yes (5) Uncontrolled diabetes mellitus Status: Acute Assessment and plan: SEE PLAN OF CARE LISTED BELOW Current Visit: Yes (6) Coronary artery disease Status: Chronic Assessment and plan: SEE PLAN OF CARE LISTED BELOW Current Visit: Yes (7) UVALDO (acute kidney injury) Status: Resolved Assessment and plan: SEE PLAN OF CARE LISTED BELOW Current Visit: Yes (8) Chronic pain Problem details: Patient is wearing topical fentanyl. I recommend topical diclofenac gel with Lidoderm topical patch. Continue gabapentin. This is my recommendation however patient insists that he must continue Duragesic and that his primary care physician has tried multiple nonnarcotic combinations and only Duragesic helps to relieve his pain. Status: Chronic Assessment and plan: SEE PLAN OF CARE LISTED BELOW Current Visit: Yes (9) Hypothyroidism Problem details: Modest elevation of TSH level within normal range free T4 level. Recommend continue 50 mcg daily Synthroid supplementation. Recheck lab panel within the next 2-3 months. Status: Acute Assessment and plan: SEE PLAN OF CARE LISTED BELOW Current Visit: Yes (10) Obesity Problem details: BMI is reported at 29.4 kg I requested repeat measurement suspected patient's body weight is much higher than 100 kg Status: Chronic Assessment and plan: SEE PLAN OF CARE LISTED BELOW Current Visit: Yes (11) Anemia Status: Chronic Assessment and plan: SEE PLAN OF CARE LISTED BELOW Current Visit: Yes Cardiology - PN: Subj Interval history: [employer] [place]: DR. AU SUMMARY: Mr. Akbar, 81WM, with a history of known coronary artery disease (S/ P CABG twice, last was five years ago), hypertension, dyslipidemia, diabetes. He is retired from the [employer]. Admitted, May 28, 2017 for atypical chest pain. Blood glucose levels greater than 500 on arrival with acute kidney injury. Patient has been seen, evaluated by Dr. Au over the weekend. He is being treated for musculoskeletal chest discomfort. Cardiac biomarkers negative and EKG is stable. Chest pain has improved. Echo May 29, 2017: EF 55%, mild concentric LVH with mild diastolic dysfunction. MAY 30, 2017: Patient is doing well this morning. Chest pain has improved with Neurontin. Creatinine has also improved overnight as are blood glucose levels. At this point, continue treatment with current medications, follow labs. It has been recommended for patient to be scheduled for outpatient stress testing at discharge, follow-up appointment with Dr. Au. Okay to transfer to telemetry when okay with attending. Will further discuss with Dr. Brooke and await additional recommendations. ASSESSMENT/PLAN: 1. CHEST PAIN - improved with Neurontin, PPI. CIE negative, EKG stable. At discharge, will be scheduled for outpatient stress test and follow-up with Dr. Au. 2. KNOWN CAD (S/P CABG TWICE) - will attempt to located records and get additional details. Currently on aspirin, beta blockade, lipid-lowering agent. Avoiding HOA inhibitors for fear of worsening renal insufficiency. 3. HYPERTENSION - adequately controlled on low-dose beta blockade 4. DYSLIPIDEMIA - LDL 42. Continue lipid lowering agent. LDL at goal. Triglycerides 242. Will add [place] 3. 5. DIABETES - poorly controlled on arrival. Much improved since admitted 6. ANEMIA - will check H&H this morning. Continue low dose ASA. 7. ACUTE KIDNEY INJURY - creatinine normalized this morning. Initially, stage III presentation. Avoiding HOA for fear of worsening creatinine 8. HYPOTHYROIDISM - TSH elevated. Meds adjusted during this admission 9. CHRONIC PAIN - better controlled 10. DEBILITY - continue current plan of care. If PT has not been consulted will ask to work with patient Exam (Progress Note) - Constitutional Vitals: Period Temp Pulse Resp BP Sys/Lowry Pulse Ox Last 24 Hr 97.0 F-98.3 F 63-81 12-21 87-181/50-105 84-100 Exam: General: [Appears well with no apparent distress.] [Pleasant and cooperative. ] [Appears comfortable.] HEENT: [PERRL, normocephalic, atraumatic. Mucous membranes moist. No jaundice noted. Conjunctiva moist and clear, sclerae anicteric] Neck: No JVD/HJR, no thyromegaly or lymphadenopathy noted. No carotid bruit appreciated Cardiac: [Regular rate and rhythm.] [No murmur rub or gallop.] Lungs: [Clear to auscultation without accessory muscle use to assist the respiratory pattern.] Using oxygen intermittently Abdomen: Soft, bowel sounds normoactive. Nontender and nondistended. No abdominal bruit or thrill noted. No masses noted. Musculoskeletal: No fluid collection. Decreased range of motion is noted. Extremities: No clubbing, cyanosis noted. [ No edema noted.] Upper extremity pulses 2+. Lower extremity pulses 2+. Capillary refill less than 3 seconds. Skin: No unusual lesions or rashes. No skin breakdown appreciated. Neuro: Awake, alert and oriented 3. Moves all extremities well without hemiparesis or paralysis. No essential tremor is appreciated. Result/EKG - Labs CBC & BMP: 05/28/17 03:03 05/30/17 05:30 Lab Results: I have reviewed the past 24 hour labs Labs: Laboratory Results - last 24 hr 05/29/17 05/29/17 05/29/17 08:19 08:19 08:19 Sodium 136 Potassium 3.5 Chloride 99 Carbon Dioxide 29 Anion Gap 11.5 BUN 27 H Creatinine 1.30 GFR Calculation 68 BUN/Creatinine Ratio 20.00 Glucose 94 POC Glucose Calculated Osmolality 276.0 Calcium 8.7 Magnesium 2.5 H Iron 21 L TIBC 455 H % Saturation 4.6 L Ferritin 26.9 Vitamin B12 1538 H Folate > 24.0 H 05/29/17 05/29/17 05/29/17 08:31 09:09 10:56 Sodium Potassium Chloride Carbon Dioxide Anion Gap BUN Creatinine GFR Calculation BUN/Creatinine Ratio Glucose POC Glucose 108 H 188 H 228 H Calculated Osmolality Calcium Magnesium Iron TIBC % Saturation Ferritin Vitamin B12 Folate 05/29/17 05/29/17 05/29/17 12:09 13:41 15:46 Sodium Potassium Chloride Carbon Dioxide Anion Gap BUN Creatinine GFR Calculation BUN/Creatinine Ratio Glucose POC Glucose 224 H 200 H 106 Calculated Osmolality Calcium Magnesium Iron TIBC % Saturation Ferritin Vitamin B12 Folate 05/29/17 05/29/17 05/29/17 16:56 18:00 18:50 Sodium Potassium Chloride Carbon Dioxide Anion Gap BUN Creatinine GFR Calculation BUN/Creatinine Ratio Glucose POC Glucose 82 113 H 163 H Calculated Osmolality Calcium Magnesium Iron TIBC % Saturation Ferritin Vitamin B12 Folate 05/29/17 05/29/17 05/29/17 20:10 21:18 22:35 Sodium Potassium Chloride Carbon Dioxide Anion Gap BUN Creatinine GFR Calculation BUN/Creatinine Ratio Glucose POC Glucose 124 H 136 H 104 Calculated Osmolality Calcium Magnesium Iron TIBC % Saturation Ferritin Vitamin B12 Folate 05/29/17 05/30/17 05/30/17 23:35 00:32 01:34 Sodium Potassium Chloride Carbon Dioxide Anion Gap BUN Creatinine GFR Calculation BUN/Creatinine Ratio Glucose POC Glucose 71 L 103 143 H Calculated Osmolality Calcium Magnesium Iron TIBC % Saturation Ferritin Vitamin B12 Folate 05/30/17 05/30/17 05/30/17 02:25 04:47 05:30 Sodium 139 Potassium 3.8 Chloride 104 Carbon Dioxide 26 Anion Gap 12.8 BUN 27 H Creatinine 1.30 GFR Calculation 68 BUN/Creatinine Ratio 20.00 Glucose 164 H POC Glucose 143 H 200 H Calculated Osmolality 285.5 Calcium 7.6 L Magnesium 2.5 H Iron TIBC % Saturation Ferritin Vitamin B12 Folate 05/30/17 07:26 Sodium Potassium Chloride Carbon Dioxide Anion Gap BUN Creatinine GFR Calculation BUN/Creatinine Ratio Glucose POC Glucose 173 H Calculated Osmolality Calcium Magnesium Iron TIBC % Saturation Ferritin Vitamin B12 Folate - Diagnostic Findings Procedure: Chest x-ray: report reviewed by me - EKG EKG results: interpreted by me EKG shows: sinus rhythm Quality Measures - VTE Contraindication to Pharmacological VTE Prophylaxis: Clinical assessment deems Pt at low risk, no prophalaxis needed <Usman Limon Ihsan - Last Filed: 05/30/17 15:37> Cardiology - PN: Subj Interval history: The patient's chart was reviewed and patient was personally interviewed and examined by me. I discussed this case with Cleo Cali NP and agree with the above note and evaluation. From a cardiac standpoint he is stable and remains stable. He is doing well. His glucoses will be followed by the primary service. His vital signs are stable. General from a cardiac standpoint he remained stable. He is now on the floor and is progressing. Hopefully will be able to be discharged soon. He will be followed up by Dr. Au. There is consideration for stress testing as an outpatient this can be arranged at the time of his discharge. Exam (Progress Note) - Constitutional Vitals: Period Temp Pulse Resp BP Sys/Lowry Pulse Ox Last 24 Hr 97.0 F-98.0 F 63-81 13-30 85-157/43-83 91-100 Result/EKG - Labs CBC & BMP: 05/30/17 08:17 05/30/17 05:30 Labs: Laboratory Results - last 24 hr 05/29/17 05/29/17 05/29/17 15:46 16:56 18:00 WBC RBC Hgb Hct MCV MCH MCHC RDW Plt Count MPV Neut % (Auto) Lymph % (Auto) [place] % (Auto) Eos % (Auto) Baso % (Auto) Neut # (Auto) Lymph # (Auto) [place] # (Auto) Eos # (Auto) Baso # (Auto) Immature Gran % Nucleated RBC % Immature Gran # Nucleated RBCs # Sodium Potassium Chloride Carbon Dioxide Anion Gap BUN Creatinine GFR Calculation BUN/Creatinine Ratio Glucose POC Glucose 106 82 113 H Calculated Osmolality Calcium Magnesium 05/29/17 05/29/17 05/29/17 18:50 20:10 21:18 WBC RBC Hgb Hct MCV MCH MCHC RDW Plt Count MPV Neut % (Auto) Lymph % (Auto) [place] % (Auto) Eos % (Auto) Baso % (Auto) Neut # (Auto) Lymph # (Auto) [place] # (Auto) Eos # (Auto) Baso # (Auto) Immature Gran % Nucleated RBC % Immature Gran # Nucleated RBCs # Sodium Potassium Chloride Carbon Dioxide Anion Gap BUN Creatinine GFR Calculation BUN/Creatinine Ratio Glucose POC Glucose 163 H 124 H 136 H Calculated Osmolality Calcium Magnesium 05/29/17 05/29/17 05/30/17 22:35 23:35 00:32 WBC RBC Hgb Hct MCV MCH MCHC RDW Plt Count MPV Neut % (Auto) Lymph % (Auto) [place] % (Auto) Eos % (Auto) Baso % (Auto) Neut # (Auto) Lymph # (Auto) [place] # (Auto) Eos # (Auto) Baso # (Auto) Immature Gran % Nucleated RBC % Immature Gran # Nucleated RBCs # Sodium Potassium Chloride Carbon Dioxide Anion Gap BUN Creatinine GFR Calculation BUN/Creatinine Ratio Glucose POC Glucose 104 71 L 103 Calculated Osmolality Calcium Magnesium 05/30/17 05/30/17 05/30/17 01:34 02:25 04:47 WBC RBC Hgb Hct MCV MCH MCHC RDW Plt Count MPV Neut % (Auto) Lymph % (Auto) [place] % (Auto) Eos % (Auto) Baso % (Auto) Neut # (Auto) Lymph # (Auto) [place] # (Auto) Eos # (Auto) Baso # (Auto) Immature Gran % Nucleated RBC % Immature Gran # Nucleated RBCs # Sodium Potassium Chloride Carbon Dioxide Anion Gap BUN Creatinine GFR Calculation BUN/Creatinine Ratio Glucose POC Glucose 143 H 143 H 200 H Calculated Osmolality Calcium Magnesium 05/30/17 05/30/17 05/30/17 05:30 07:26 08:17 WBC 7.8 D RBC 3.60 L Hgb 8.5 L Hct 27.5 L MCV 76.4 L MCH 24 L MCHC 30.9 L RDW 17.8 H Plt Count 140 MPV 12.4 H Neut % (Auto) 66.2 Lymph % (Auto) 26.3 [place] % (Auto) 5.6 Eos % (Auto) 1.1 Baso % (Auto) 0.3 Neut # (Auto) 5.2 Lymph # (Auto) 2.1 [place] # (Auto) 0.4 Eos # (Auto) 0.1 Baso # (Auto) 0.0 Immature Gran % 0.5 Nucleated RBC % 0.0 Immature Gran # 0.04 Nucleated RBCs # 0.00 Sodium 139 Potassium 3.8 Chloride 104 Carbon Dioxide 26 Anion Gap 12.8 BUN 27 H Creatinine 1.30 GFR Calculation 68 BUN/Creatinine Ratio 20.00 Glucose 164 H POC Glucose 173 H Calculated Osmolality 285.5 Calcium 7.6 L Magnesium 2.5 H 05/30/17 11:04 WBC RBC Hgb Hct MCV MCH MCHC RDW Plt Count MPV Neut % (Auto) Lymph % (Auto) [place] % (Auto) Eos % (Auto) Baso % (Auto) Neut # (Auto) Lymph # (Auto) [place] # (Auto) Eos # (Auto) Baso # (Auto) Immature Gran % Nucleated RBC % Immature Gran # Nucleated RBCs # Sodium Potassium Chloride Carbon Dioxide Anion Gap BUN Creatinine GFR Calculation BUN/Creatinine Ratio Glucose POC Glucose 219 H Calculated Osmolality Calcium Magnesium
[2017-05-30 08:34] LABS: Basophils % 0.3 % (0.0-0.8); Eosinophils # 0.1 10*3/uL (0.0-0.87); Eosinophils % 1.1 % (0.00-10.9); Hematocrit 27.5 VOL% (42.0-52.0); Hemoglobin 8.5 GM/DL (14.0-18.0); Immature Granulocytes % 0.5 %; Immature Granulocytes Absolute 0.04 #; Lymphocytes # 2.1 10*3/uL (1.4-4.0); Lymphocytes % 26.3 % (21.2-54.2); Mean Corpuscular HGB Conc 30.9 GM/DL (32-36); Mean Corpuscular Hemoglobin 24 PG (27-34); Mean Corpuscular Volume 76.4 FL (87-102); Mean Platelet Volume 12.4 FL (9.6-12.0); Monocytes # 0.4 10*3/uL (0.11-0.8); Monocytes % 5.6 % (1.7-12.7); Neutrophils # 5.2 10*3/uL (1.4-7.4); Neutrophils % 66.2 % (38.7-73.9); Platelet Count 140 T/CUMM (130-400); Red Cell Distribution Width 17.8 % (9.3-17.3); White Blood Count 7.8 T/CUMM (4-12)
[2017-05-30] MEDS: FOLIC ACID 0.4 MG TABLET PO SCH (08:34)
[2017-05-30] MEDS: COLESTIPOL 1 GM TABLET PO SCH (08:34)
[2017-05-30] MEDS: GABAPENTIN 600 MG TABLET PO SCH ×3 (08:34→20:35)
[2017-05-30] MEDS: CYANOCOBALAMIN 500 MCG TABLET PO SCH (08:34)
[2017-05-30] MEDS: POTASSIUM CHLORIDE 20 MEQ TABLET PO SCH (08:34)
[2017-05-30] MEDS: ISOSORBIDE MONONITRATE 60 MG TABLET PO SCH (08:34)
[2017-05-30] MEDS: ASPIRIN EC 81 MG TABLET PO SCH (08:34)
[2017-05-30] MEDS: MULTIVITAMIN (CENTRUM) TABLET PO SCH (08:34)
[2017-05-30] MEDS: CARVEDILOL 3.125 MG TABLET PO SCH ×2 (08:34→20:36)
[2017-05-30] MEDS: OMEGA 3 ACID ETHYL ESTERS 1 GM CAPSULE PO SCH ×2 (08:35→20:35)
[2017-05-30] MEDS: FUROSEMIDE 20 MG TABLET PO SCH ×2 (08:35→15:45)
[2017-05-30] MEDS: INSULIN GLARGINE 100 UNIT/ML SUBCUT SCH ×2 (08:35→21:29)
--- NOTE | 2017-05-30 14:04 | Hospitalist Progress Note ---
Assessment and Plan (1) Type 2 diabetes mellitus Problem details: Poor glucose control. The patient's blood glucose is better controlled now. The patient will continue on oral antidiabetic medication, long -acting insulin, and will receive sliding scale insulin every 4 hours. Status : Acute Current Visit: Yes (2) Chronic pain Status: Acute Current Visit: Yes (3) COPD (chronic obstructive pulmonary disease) Problem details: Acute exacerbation. No identified precipitating factors. Patient is not receiving empiric antibiotic therapy at present. The patient will continue on present care and transfer to the floor Status: Acute Current Visit: Yes (4) Hypertension Status: Chronic Current Visit: Yes Qualifiers: Hypertension type: essential hypertension Qualified Code(s): I10 - Essential (primary) hypertension Hospitalist: Subjective Interval history: The patient is without chest pain this morning. Blood glucose is well controlled and hemodynamics are stable. The patient is ready for transfer to the floor. Exam - Constitutional Vitals: Period Temp Pulse Resp BP Sys/Lowry Pulse Ox Last 24 Hr 97.0 F-98.2 F 63-81 13-30 85-157/50-83 89-100 General appearance: no acute distress - Respiratory Respiratory exam: Present: clear to auscultation bilaterally - Cardiovascular Cardiovascular exam: Present: regular rate and rhythm - GI/Abdominal GI/Abdominal exam: Present: normal bowel sounds - Psychiatric Psychiatric exam: Present: normal affect, normal mood Results - Labs CBC & BMP: 05/30/17 08:17 05/30/17 05:30 Lab Results: I have reviewed the past 24 hour labs Quality Measures - VTE Contraindication to Pharmacological VTE Prophylaxis: Clinical assessment deems Pt at low risk, no prophalaxis needed
--- NOTE | 2017-05-30 15:32 | Physician Query Form ---
CLICK EDIT DOCUMENT TO SELECT QUERY ANSWER --> OK --> SIGN Ariella Valente RN Clinical Risk Management Specialist W) [phone] (f) [phone] [email or web address] PROVIDERS: Make your selection(s) from the choices in EACH section by typing an "x" and enter comments in the comment section. Please use your independent medical judgment in providing your response. This request does not imply that any particular answer is desired or expected. CLINICAL INDICATORS: (Providers should not edit this section) Based on lab results of sodium of 129. Pt. treated with IV fluids of Normal Saline. Based on the above, could you clarify the appropriate diagnosis, if significant , that supports the above abnormalities and additional evaluation, monitoring, and/or treatment rendered: ( ) Pt. treated for hyponatremia ( ) Pt. not treated for hyponatremia ( X) Other, please specify: the patient was treated for pseudohyponatremia caused by hyperglycemia ( ) Clinically unable to determine COMMENTS: PLEASE ALSO DOCUMENT RESPONSE IN PROGRESS NOTES AND/OR DISCHARGE SUMMARY Use of terms such as suspected, likely, or probable (associated with a specific diagnosis that is being evaluated, monitored, or treated as if it exists) are acceptable and can be restated in the discharge summary if not ruled out. MTDD
[2017-05-30] MEDS: ROSUVASTATIN 20 MG TABLET PO SCH (20:36)
[2017-05-31] MEDS: INSULIN REGULAR 100 UNIT/ML SUBCUT SCH ×4 (00:57→13:00)
[2017-05-31] MEDS: SODIUM CHLORIDE 0.9% 1,000 ML IV SCH (02:16)
[2017-05-31 06:07] LABS: Basophils % 0.3 % (0.0-0.8); Eosinophils # 0.1 10*3/uL (0.0-0.87); Eosinophils % 1.9 % (0.00-10.9); Hematocrit 24.9 VOL% (42.0-52.0); Hemoglobin 7.8 GM/DL (14.0-18.0); Immature Granulocytes % 0.5 %; Immature Granulocytes Absolute 0.03 #; Lymphocytes # 1.7 10*3/uL (1.4-4.0); Lymphocytes % 29.5 % (21.2-54.2); Mean Corpuscular HGB Conc 31.3 GM/DL (32-36); Mean Corpuscular Hemoglobin 24 PG (27-34); Mean Corpuscular Volume 75.2 FL (87-102); Mean Platelet Volume 12.6 FL (9.6-12.0); Monocytes # 0.5 10*3/uL (0.11-0.8); Monocytes % 8.7 % (1.7-12.7); Neutrophils # 3.5 10*3/uL (1.4-7.4); Neutrophils % 59.1 % (38.7-73.9); Platelet Count 125 T/CUMM (130-400); Red Blood Count 3.31 MC/CUMM (3.8-5.5); White Blood Count 5.8 T/CUMM (4-12)
[2017-05-31 06:37] LABS: Calcium 8.3 MG/DL (8.5-10.1); Magnesium 2.3 MG/DL (1.8-2.4); Osmolality,Calculated 288.1 MOS/KG (273-304); Potassium 3.7 MMOL/L (3.5-5.1)
[2017-05-31] MEDS: LEVOTHYROXINE 50 MCG TABLET PO SCH (06:42)
[2017-05-31] MEDS: MULTIVITAMIN (CENTRUM) TABLET PO SCH (09:04)
[2017-05-31] MEDS: ASPIRIN EC 81 MG TABLET PO SCH (09:04)
[2017-05-31] MEDS: CARVEDILOL 3.125 MG TABLET PO SCH (09:04)
[2017-05-31] MEDS: POTASSIUM CHLORIDE 20 MEQ TABLET PO SCH (09:04)
[2017-05-31] MEDS: COLESTIPOL 1 GM TABLET PO SCH (09:04)
[2017-05-31] MEDS: OMEGA 3 ACID ETHYL ESTERS 1 GM CAPSULE PO SCH (09:05)
[2017-05-31] MEDS: INSULIN GLARGINE 100 UNIT/ML SUBCUT SCH (09:05)
[2017-05-31] MEDS: GABAPENTIN 600 MG TABLET PO SCH (09:05)
[2017-05-31] MEDS: CYANOCOBALAMIN 500 MCG TABLET PO SCH (09:05)
[2017-05-31] MEDS: ISOSORBIDE MONONITRATE 60 MG TABLET PO SCH (09:05)
[2017-05-31] MEDS: FOLIC ACID 0.4 MG TABLET PO SCH (09:05)
[2017-05-31] MEDS: FUROSEMIDE 20 MG TABLET PO SCH (09:05)
[2017-05-31] MEDS: fentaNYL 25 MCG/HR PATCH TRANSDERM SCH (09:13)
[2017-05-31 11:49] VITALS: BP 146/63
--- NOTE | 2017-05-31 12:43 | Discharge Summary ---
Hospital Course - Hospital Course Hospital Course: Mr. Akbar is a 81 year old male with a past medical history coronary artery disease with CABG 2, uncontrolled diabetes, COPD with home oxygen use, chronic pain, recently diagnosed urinary tract infection on Cipro presented to the ED with chief complaint of chest pain. The patient reported having pain all over is body but the day of presentation, he started to have chest pain. He reported the pain was a "tight type". He reported that he was doing nothing when the pain, his at the bedside indicates that they were having a slight argument. He was admitted to the telemetry unit under service of hospitalist for further evaluation treatment. Cardiology was consulted, treated as chest wall pain, recommend stress test outpatient. His troponin remained negative and he did not have any chest pain during admission. His hospital course was complicated by hyperglycemia. He was transferred to the intensive care unit and started on an insulin infusion. His hemoglobin A1C was 12.9%. The insulin infusion was eventually discontinued and he was transferred to the general medicine floor. The patient uses various pharmacies, and it has been difficult to determine what he takes for his diabetes mellitus. It does appear that he was recently started on Toujeo, unsure if he has actually started taking it yet. This will be continued at discharge. Our diabetes educators have talked extensively with patient and his . He has now reached maximal benefit of inpatient stay and will be discharged home. - Time spent with patient Time with patient DS: Greater than 30 minutes (45) Diagnosis - Discharge Diagnosis (1) Chest wall pain Status: Resolved (2) Diabetes mellitus type 2, uncontrolled Status: Chronic (3) Hypertension Status: Chronic Discharge Plan - Discharge Data Disposition: Disch To Home/Self Care Condition at Discharge: Stable Discharge Diet: diabetic diet Activity: increase activity as tolerated Hygiene: no restrictions Weight Bearing at Discharge: weight bear as tolerated Contact your physician if you experience:: Shortness of breath, pain uncontrolled by pain medications - Discharge Medications New metFORMIN [Glucophage] 500 mg PO BID W/MEALS #60 tablet sitaGLIPtin [Januvia] 100 mg PO DAILY #30 tablet Continue Furosemide Tab [Lasix Tab] 20 mg PO BID Gabapentin [Gralise] 600 mg PO TID Rosuvastatin [Crestor] 20 mg PO BEDTIME Colestipol [Colestid] 1 gm PO DAILY Multivit-Min/FA/Lycopen/Lutein [Centrum Silver Tablet] 1 each PO DAILY Aspirin [Ecotrin] 81 mg PO DAILY Levothyroxine Sodium 50 mcg PO DAILY Folic Acid Tab 0.4 mg PO DAILY fentaNYL 25 MCG/HR PATCH [Duragesic 25 Patch] 1 patch TRANSDERM Q3DAY #5 patch Nitroglycerin [Nitroglycerin SL Tab] 0.4 mg SL Q5M PRN PRN Reason: Chest Pain Isosorbide Mononitrate [Isosorbide Mononitrate ER] 60 mg PO DAILY Carvedilol 3.125 mg PO BID Potassium 99 mg PO DAILY Cyanocobalamin Tab [Vitamin B12 Tab] 500 mcg PO DAILY Changed Insulin Glargine,Hum.rec.anlog [Toujeo SoloStar] 50 unit SUBCUT DAILY #1500 units Discontinued LORazepam [Lorazepam] 1 mg PO QID Ciprofloxacin HCl [Ciprofloxacin Tab] 500 mg PO BID Sitagliptin Phosphate [Januvia] 50 mg PO DAILY HYDROcodone/ACETAMIN 10-325 [[place] 10-325] 1 tablet PO Q4H No Action Tamsulosin [Flomax] 0.4 mg PO BID - Follow Up or Referral - Forms/Instructions Exam - Constitutional Vitals: Period Temp Pulse Resp BP Sys/Lowry Pulse Ox Last 24 Hr 97.5 F-98.3 F 75-90 15-20 85-148/43-86 92-100 General appearance: over weight - Head Head exam: Present: normocephalic, atraumatic - Eye Eye exam: Present: EOMI Pupils: Present: JOZEF - ENT ENT exam: Present: normal exam - Neck Neck exam: Present: normal inspection - Respiratory Respiratory exam: Present: clear to auscultation bilaterally. Absent: rhonchi, wheezes - Cardiovascular Cardiovascular exam: Present: regular rate and rhythm - GI/Abdominal GI/Abdominal exam: Present: normal bowel sounds, soft. Absent: mass - Extremities Exam Extremities exam: Present: normal inspection - Back Exam Back exam: Present: normal inspection - Neurological Exam Neurological exam: Present: alert, oriented X3 - Psychiatric Psychiatric exam: Present: normal affect, normal mood - Skin Skin exam: Present: warm, intact Discharge Results Procedures and tests throughout hospitalization: Pending Orders 05/29/17 15:12 Occult Blood, Stool Routine 06/01/17 04:00 BMP w/ Mg [Basic Metabolic Panel w/Mg] IN AM CBC [Comp Blood Count Auto Diff] IN AM 06/02/17 04:00 BMP w/ Mg [Basic Metabolic Panel w/Mg] IN AM CBC [Comp Blood Count Auto Diff] IN AM 06/03/17 04:00 BMP w/ Mg [Basic Metabolic Panel w/Mg] IN AM CBC [Comp Blood Count Auto Diff] IN AM Labs on day of discharge: Labs from last 24 hours 05/31/17 05/31/17 05/31/17 11:24 07:04 05:21 WBC RBC Hgb Hct MCV MCH MCHC RDW Plt Count MPV Neut % (Auto) Lymph % (Auto) [place] % (Auto) Eos % (Auto) Baso % (Auto) Neut # (Auto) Lymph # (Auto) [place] # (Auto) Eos # (Auto) Baso # (Auto) Immature Gran % Nucleated RBC % Immature Gran # Nucleated RBCs # Sodium 142 Potassium 3.7 Chloride 106 Carbon Dioxide 26 Anion Gap 13.7 BUN 20 H Creatinine 1.10 GFR Calculation 83 BUN/Creatinine Ratio 18.00 Glucose 148 H POC Glucose 236 H 158 H Calculated Osmolality 288.1 Calcium 8.3 L Magnesium 2.3 05/31/17 05/31/17 05/31/17 05:21 05:09 00:51 WBC 5.8 RBC 3.31 L Hgb 7.8 L Hct 24.9 L MCV 75.2 L MCH 24 L MCHC 31.3 L RDW 18.0 H Plt Count 125 L MPV 12.6 H Neut % (Auto) 59.1 Lymph % (Auto) 29.5 [place] % (Auto) 8.7 Eos % (Auto) 1.9 Baso % (Auto) 0.3 Neut # (Auto) 3.5 Lymph # (Auto) 1.7 [place] # (Auto) 0.5 Eos # (Auto) 0.1 Baso # (Auto) 0.0 Immature Gran % 0.5 Nucleated RBC % 0.0 Immature Gran # 0.03 Nucleated RBCs # 0.00 Sodium Potassium Chloride Carbon Dioxide Anion Gap BUN Creatinine GFR Calculation BUN/Creatinine Ratio Glucose POC Glucose 179 H 248 H Calculated Osmolality Calcium Magnesium 05/30/17 05/30/17 20:33 15:19 WBC RBC Hgb Hct MCV MCH MCHC RDW Plt Count MPV Neut % (Auto) Lymph % (Auto) [place] % (Auto) Eos % (Auto) Baso % (Auto) Neut # (Auto) Lymph # (Auto) [place] # (Auto) Eos # (Auto) Baso # (Auto) Immature Gran % Nucleated RBC % Immature Gran # Nucleated RBCs # Sodium Potassium Chloride Carbon Dioxide Anion Gap BUN Creatinine GFR Calculation BUN/Creatinine Ratio Glucose POC Glucose 390 H 338 H Calculated Osmolality Calcium Magnesium DS: Provider Date of admission: 05/28/17 04:43 Primary care physician: Fabiola Dexter Attending physician on admission: Usman Galvin MD Consults: 05/28/17 04:31 Consult to Physician [CONS] Routine Comment: Chest Pain, history of CABG x 3 Consulting Provider: Cardiology - [facility] When should Consulting Provider be notified: In am Person Notified: Dr Au Date Notified: 05/28/17 Time Notified: 16:42 Consult Notification Comment: notified of consult 05/28/17 04:38 Consult to [facility], Educator [CONS] Routine Reason for Rn Invasive: Diabetes Education 05/28/17 06:59 Consult to Pastoral Services [CONS] Routine Comment: Pastoral Screen: Request [place] Visit Pastoral Screen Source of Request: Patient Discharging clinician: Genny Gilbert MD
--- NOTE | 2017-05-31 12:46 | Cardiology Progress Note ---
Francoise Dennis April RN, am scribing for, and in the presence of, Usman Limon MD 12:45. Assessment and Plan (1) Chest pain Status: Resolved Assessment and plan: This is stable resolved and no further evaluation. Current Visit: Yes (2) Acute kidney injury Status: Acute Current Visit: Yes (3) Chronic pain Status: Acute Current Visit: Yes (4) Hypothyroidism Status: Acute Current Visit: Yes (5) Uncontrolled diabetes mellitus Status: Acute Current Visit: Yes (6) Chronic pain Status: Chronic Current Visit: Yes (7) Coronary artery disease Status: Chronic Assessment and plan: This clinically stable without any anginal symptomatology. Current Visit: Yes (8) Debility Status: Chronic Current Visit: Yes (9) Dyslipidemia Status: Chronic Assessment and plan: Continue his statin drug. Current Visit: Yes (10) Hypertension Status: Chronic Assessment and plan: Overall vital signs blood pressure stable. 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 AU SUMMARY: Mr. Akbar, 81WM, with a history of known coronary artery disease (S/ P CABG twice, last was five years ago), hypertension, dyslipidemia, diabetes. He is retired from [employer]. Admitted, May 28, 2017 for atypical chest pain. Blood glucose levels greater than 500 on arrival with acute kidney injury. Patient has been seen, evaluated by Dr. Au over the weekend. He is being treated for musculoskeletal chest discomfort. Cardiac biomarkers negative and EKG is stable. Chest pain has improved. Echo May 29, 2017: EF 55%, mild concentric LVH with mild diastolic dysfunction. MAY 31, 2017: Mr. Treadwell is resting in bed in no acute distress. He denies any chest pain or shortness of breath. Vital signs have been stable. His creatinine continues to improve. Telemetry monitoring currently shows sinus rhythm with heart rates in the 80s. He is hoping to go home today. He is to follow-up with Dr. Au as an outpatient for stress testing. Patient personally interviewed and examined chart reviewed. The patient has had no chest pain 24-48 hours. Certainly his cardiac status is stable. From our standpoint he can go home. No further cardiac evaluation is indicated at this time. Exam (Progress Note) - Constitutional Vitals: Period Temp Pulse Resp BP Sys/Lowry Pulse Ox Last 24 Hr 97.5 F-98.3 F 74-90 15-23 85-148/43-86 92-100 General appearance: no acute distress, over weight - Head Head exam: Absent: abrasion, hematoma - Eye Eye exam: Absent: periorbital swelling, laceration to eyelids - Respiratory Respiratory exam: Present: clear to auscultation bilaterally. Absent: accessory muscle use, chest wall tenderness - Cardiovascular Cardiovascular exam: Present: regular rate and rhythm. Absent: rubs, systolic murmur - GI/Abdominal GI/Abdominal exam: Present: normal bowel sounds, soft. Absent: distended, tenderness - Extremities Exam Extremities exam: Absent: calf tenderness, edema - Neurological Exam Neurological exam: Present: alert, oriented X3 - Psychiatric Psychiatric exam: Present: normal affect, normal mood - Skin Skin exam: Present: warm, dry Result/EKG - Labs CBC & BMP: 05/31/17 05:21 05/31/17 05:21 Lab Results: I have reviewed the past 24 hour labs Labs: Laboratory Results - last 24 hr 05/30/17 05/30/17 05/30/17 11:04 15:19 20:33 WBC RBC Hgb Hct MCV MCH MCHC RDW Plt Count MPV Neut % (Auto) Lymph % (Auto) [place] % (Auto) Eos % (Auto) Baso % (Auto) Neut # (Auto) Lymph # (Auto) [place] # (Auto) Eos # (Auto) Baso # (Auto) Immature Gran % Nucleated RBC % Immature Gran # Nucleated RBCs # Sodium Potassium Chloride Carbon Dioxide Anion Gap BUN Creatinine GFR Calculation BUN/Creatinine Ratio Glucose POC Glucose 219 H 338 H 390 H Calculated Osmolality Calcium Magnesium 05/31/17 05/31/17 05/31/17 00:51 05:09 05:21 WBC 5.8 RBC 3.31 L Hgb 7.8 L Hct 24.9 L MCV 75.2 L MCH 24 L MCHC 31.3 L RDW 18.0 H Plt Count 125 L MPV 12.6 H Neut % (Auto) 59.1 Lymph % (Auto) 29.5 [place] % (Auto) 8.7 Eos % (Auto) 1.9 Baso % (Auto) 0.3 Neut # (Auto) 3.5 Lymph # (Auto) 1.7 [place] # (Auto) 0.5 Eos # (Auto) 0.1 Baso # (Auto) 0.0 Immature Gran % 0.5 Nucleated RBC % 0.0 Immature Gran # 0.03 Nucleated RBCs # 0.00 Sodium Potassium Chloride Carbon Dioxide Anion Gap BUN Creatinine GFR Calculation BUN/Creatinine Ratio Glucose POC Glucose 248 H 179 H Calculated Osmolality Calcium Magnesium 05/31/17 05/31/17 05:21 07:04 WBC RBC Hgb Hct MCV MCH MCHC RDW Plt Count MPV Neut % (Auto) Lymph % (Auto) [place] % (Auto) Eos % (Auto) Baso % (Auto) Neut # (Auto) Lymph # (Auto) [place] # (Auto) Eos # (Auto) Baso # (Auto) Immature Gran % Nucleated RBC % Immature Gran # Nucleated RBCs # Sodium 142 Potassium 3.7 Chloride 106 Carbon Dioxide 26 Anion Gap 13.7 BUN 20 H Creatinine 1.10 GFR Calculation 83 BUN/Creatinine Ratio 18.00 Glucose 148 H POC Glucose 158 H Calculated Osmolality 288.1 Calcium 8.3 L Magnesium 2.3 - Diagnostic Findings Procedure: Chest x-ray: report reviewed by me - EKG EKG results: interpreted by me EKG shows: sinus rhythm Quality Measures - VTE Contraindication to Pharmacological VTE Prophylaxis: Clinical assessment deems Pt at low risk, no prophalaxis needed Braxton Dennis John Timothy, MD, personally performed the services described in this documentation, ascribed by Trang Owusu RN in my presence, and it is both accurate and complete .
== END 2017-05-31 14:15 | disposition home or self-care (01) | DRG 683 ==
LOC: N.ED 02:15 → N.EDINP 04:43 → SUATTDRO 04:43 → N.TELEN 06:01 → N.ICU 16:30 → N.2E 05-30 13:21
PROVIDERS: ADMIT Internal Medicine; ATTEND Internal Medicine

== ENCOUNTER 2017-12-18 07:57 | Inpatient (IN) ==
[2017-12-18 08:57] LABS: Basophils % 0.3 % (0.0-0.8); Eosinophils # 0.2 10*3/uL (0.0-0.87); Eosinophils % 2.4 % (0.00-10.9); Hematocrit 29.8 VOL% (42.0-52.0); Immature Granulocytes % 0.5 %; Immature Granulocytes Absolute 0.04 #; Lymphocytes # 1.1 10*3/uL (1.4-4.0); Mean Corpuscular HGB Conc 30.2 GM/DL (32-36); Mean Corpuscular Hemoglobin 22 PG (27-34); Mean Corpuscular Volume 71.1 FL (87-102); Monocytes # 0.6 10*3/uL (0.11-0.8); Monocytes % 6.8 % (1.7-12.7); Neutrophils # 6.9 10*3/uL (1.4-7.4); Platelet Count 161 T/CUMM (130-400); Red Blood Count 4.19 MC/CUMM (3.8-5.5); Red Cell Distribution Width 18.2 % (9.3-17.3); White Blood Count 8.8 T/CUMM (4-12)
[2017-12-18 09:22] LABS: Albumin 3.5 G/DL (3.4-5.0); Bilirubin,Total 0.6 MG/DL (0.2-1.0); Calcium 8.3 MG/DL (8.5-10.1); Osmolality,Calculated 277.4 MOS/KG (273-304); Potassium 4.1 MMOL/L (3.5-5.1); Total Protein 7.1 G/DL (6.4-8.3)
[2017-12-18 09:23] LABS: Troponin I Only 0.064 NG/ML (0.00-0.045)
[2017-12-18] MEDS ORDERED: LEVOFLOXACIN INJ 750 MG in PREMIX 1 EACH IV STA (10:09)
[2017-12-18] MEDS ORDERED: FUROSEMIDE 40 MG/4 ML VIAL IV STA (10:32)
[2017-12-18] MEDS ORDERED: FUROSEMIDE 40 MG/4 ML VIAL ONE (11:05)
[2017-12-18] MEDS ORDERED: LEVOFLOXACIN INJ 150 ML IV ONE (11:05)
[2017-12-18] MEDS ORDERED: ONDANSETRON 4 MG/2 ML VIAL IV PRN (13:22)
[2017-12-18] MEDS ORDERED: DOCUSATE SODIUM 100 MG CAPSULE PO PRN (13:22)
[2017-12-18] MEDS ORDERED: GLUCAGON 1 MG VIAL IM PRN (13:22)
[2017-12-18] MEDS ORDERED: DEXTROSE 50% 25 GM/50 ML VIAL IV PRN (13:22)
[2017-12-18] MEDS ORDERED: ACETAMINOPHEN 325 MG TABLET PO PRN (13:22)
[2017-12-18] MEDS ORDERED: INFLUENZA VIRUS VACCINE 0.5 ML SYRINGE IM ONE (14:58)
[2017-12-18] MEDS: ALBUTEROL/IPRATROPIUM 3 ML NEB RESP TX SCH ×2 (16:12→19:17)
[2017-12-18] MEDS: INSULIN REGULAR 100 UNIT/ML SUBCUT SCH ×2 (16:54→21:13)
[2017-12-18] MEDS ORDERED: NITROGLYCERIN SL 0.4 MG TABLET SL PRN (17:43)
[2017-12-18] MEDS ORDERED: FUROSEMIDE 40 MG TABLET PO SCH (21:00)
[2017-12-18] MEDS: ROSUVASTATIN 20 MG TABLET PO SCH (21:19)
[2017-12-18] MEDS: CARVEDILOL 3.125 MG TABLET PO SCH (21:19)
[2017-12-18] MEDS: ASPIRIN EC 81 MG TABLET PO SCH (21:19)
[2017-12-18] MEDS: GABAPENTIN 300 MG CAPSULE PO SCH (21:19)
[2017-12-18] MEDS: ENOXAPARIN 30 MG/0.3 ML SYRINGE SUBCUT SCH (21:19)
[2017-12-19] MEDS: ALBUTEROL/IPRATROPIUM 3 ML NEB RESP TX SCH ×7 (00:11→19:05)
[2017-12-19 04:54] LABS: Basophils % 0.3 % (0.0-0.8); Eosinophils # 0.2 10*3/uL (0.0-0.87); Eosinophils % 2.3 % (0.00-10.9); Hematocrit 32.2 VOL% (42.0-52.0); Hemoglobin 9.5 GM/DL (14.0-18.0); Immature Granulocytes % 0.4 %; Immature Granulocytes Absolute 0.03 #; Lymphocytes % 28.4 % (21.2-54.2); Mean Corpuscular HGB Conc 29.5 GM/DL (32-36); Mean Corpuscular Hemoglobin 22 PG (27-34); Monocytes # 0.6 10*3/uL (0.11-0.8); Neutrophils # 4.2 10*3/uL (1.4-7.4); Neutrophils % 59.6 % (38.7-73.9); Platelet Count 155 T/CUMM (130-400); Red Blood Count 4.41 MC/CUMM (3.8-5.5); Red Cell Distribution Width 18.2 % (9.3-17.3)
[2017-12-19 05:25] LABS: Calcium 8.6 MG/DL (8.5-10.1); Magnesium 2.4 MG/DL (1.8-2.4); Osmolality,Calculated 279.4 MOS/KG (273-304); Potassium 4.4 MMOL/L (3.5-5.1)
[2017-12-19 05:29] LABS: Ovalocytes Few
[2017-12-19 05:30] LABS: Anisocytosis 1+; Hypochromasia 1+; Microcytosis 1+; Platelet Estimate Adequate
[2017-12-19] MEDS: LEVOTHYROXINE 50 MCG TABLET PO SCH (06:06)
[2017-12-19] MEDS: INSULIN REGULAR 100 UNIT/ML SUBCUT SCH ×4 (07:41→21:36)
[2017-12-19] MEDS: CARVEDILOL 3.125 MG TABLET PO SCH ×2 (09:12→21:37)
[2017-12-19] MEDS: ISOSORBIDE MONONITRATE 60 MG TABLET PO SCH (09:12)
[2017-12-19] MEDS: COLESTIPOL 1 GM TABLET PO SCH (09:12)
[2017-12-19] MEDS: sitaGLIPtin 100 MG TABLET PO SCH (09:12)
[2017-12-19] MEDS: GABAPENTIN 300 MG CAPSULE PO SCH ×3 (09:12→21:37)
[2017-12-19] MEDS: FOLIC ACID 0.4 MG TABLET PO SCH (09:12)
[2017-12-19] MEDS: CYANOCOBALAMIN 500 MCG TABLET PO SCH (09:12)
[2017-12-19] MEDS: FUROSEMIDE 40 MG/4 ML VIAL IV SCH (09:13)
[2017-12-19] MEDS: INSULIN GLARGINE 100 UNIT/ML SUBCUT SCH (09:13)
[2017-12-19] MEDS ORDERED: LEVOFLOXACIN INJ 500 MG in PREMIX 1 EACH IV ONE (13:27)
[2017-12-19] MEDS ORDERED: LEVOFLOXACIN INJ 750 MG in PREMIX 1 EACH IV SCH (16:30)
[2017-12-19] MEDS: ENOXAPARIN 30 MG/0.3 ML SYRINGE SUBCUT SCH (21:37)
[2017-12-19] MEDS: ASPIRIN EC 81 MG TABLET PO SCH (21:37)
[2017-12-19] MEDS: ROSUVASTATIN 20 MG TABLET PO SCH (21:37)
[2017-12-20] MEDS: ALBUTEROL/IPRATROPIUM 3 ML NEB RESP TX SCH ×2 (03:50→07:35)
[2017-12-20 05:29] LABS: Basophils % 0.5 % (0.0-0.8); Eosinophils # 0.3 10*3/uL (0.0-0.87); Eosinophils % 5.2 % (0.00-10.9); Hematocrit 30.5 VOL% (42.0-52.0); Immature Granulocytes % 0.3 %; Immature Granulocytes Absolute 0.02 #; Lymphocytes # 1.5 10*3/uL (1.4-4.0); Lymphocytes % 25.4 % (21.2-54.2); Mean Corpuscular HGB Conc 29.5 GM/DL (32-36); Mean Corpuscular Hemoglobin 21 PG (27-34); Mean Corpuscular Volume 72.4 FL (87-102); Monocytes # 0.6 10*3/uL (0.11-0.8); Monocytes % 9.6 % (1.7-12.7); Neutrophils # 3.5 10*3/uL (1.4-7.4); Platelet Count 143 T/CUMM (130-400); Red Blood Count 4.21 MC/CUMM (3.8-5.5); Red Cell Distribution Width 18.5 % (9.3-17.3); White Blood Count 5.9 T/CUMM (4-12)
[2017-12-20 05:47] LABS: Giant Platelets Few; Hypochromasia 1+; Ovalocytes Slight; Platelet Estimate Normal
[2017-12-20 05:48] LABS: Microcytosis Slight
[2017-12-20] MEDS: LEVOTHYROXINE 50 MCG TABLET PO SCH (06:19)
[2017-12-20] MEDS: FUROSEMIDE 40 MG/4 ML VIAL IV SCH (08:35)
[2017-12-20] MEDS: INSULIN REGULAR 100 UNIT/ML SUBCUT SCH ×2 (09:07→12:23)
[2017-12-20] MEDS: FOLIC ACID 0.4 MG TABLET PO SCH (10:01)
[2017-12-20] MEDS: GABAPENTIN 300 MG CAPSULE PO SCH (10:02)
[2017-12-20] MEDS: COLESTIPOL 1 GM TABLET PO SCH (10:02)
[2017-12-20] MEDS: ISOSORBIDE MONONITRATE 60 MG TABLET PO SCH (10:02)
[2017-12-20] MEDS: sitaGLIPtin 100 MG TABLET PO SCH (10:03)
[2017-12-20] MEDS: CARVEDILOL 3.125 MG TABLET PO SCH (10:03)
[2017-12-20] MEDS: CYANOCOBALAMIN 500 MCG TABLET PO SCH (10:03)
[2017-12-20] MEDS: INSULIN GLARGINE 100 UNIT/ML SUBCUT SCH (10:03)
[2017-12-20 10:48] VITALS: BP 119/55
[2017-12-20] MEDS ORDERED: LEVOFLOXACIN INJ 750 MG in PREMIX 1 EACH IV SCH (13:30)
== END 2017-12-20 13:05 | disposition home or self-care (01) | DRG 190 ==
LOC: N.ED 07:57 → N.EDINP 12:14 → SUATTDRO 12:14 → N.EDINP 14:11 → N.TELEN 14:20
PROVIDERS: ADMIT Internal Medicine; ATTEND Internal Medicine

== ENCOUNTER 2018-02-02 12:21 | Inpatient (IN) ==
[2018-02-02 13:08] LABS: Basophils % 0.4 % (0.0-0.8); Eosinophils # 0.2 10*3/uL (0.0-0.87); Eosinophils % 2.9 % (0.00-10.9); Hematocrit 25.8 VOL% (42.0-52.0); Hemoglobin 7.4 GM/DL (14.0-18.0); Immature Granulocytes % 0.4 %; Immature Granulocytes Absolute 0.02 #; Lymphocytes # 1.2 10*3/uL (1.4-4.0); Mean Corpuscular HGB Conc 28.7 GM/DL (32-36); Mean Corpuscular Hemoglobin 20 PG (27-34); Mean Corpuscular Volume 71.1 FL (87-102); Monocytes # 0.6 10*3/uL (0.11-0.8); Monocytes % 10.5 % (1.7-12.7); Neutrophils # 3.3 10*3/uL (1.4-7.4); Neutrophils % 62.8 % (38.7-73.9); Platelet Count 135 T/CUMM (130-400); Red Blood Count 3.63 MC/CUMM (3.8-5.5); Red Cell Distribution Width 18.8 % (9.3-17.3); White Blood Count 5.3 T/CUMM (4-12)
[2018-02-02 13:18] LABS: PT Patient Result 10.1 SECS; Partial Thromboplastin Time 24.8 SECS (0-40)
[2018-02-02 13:32] LABS: Albumin 3.3 G/DL (3.4-5.0); Bilirubin,Total 0.4 MG/DL (0.2-1.0); Calcium 7.8 MG/DL (8.5-10.1); Osmolality,Calculated 280.3 MOS/KG (273-304); Potassium 3.9 MMOL/L (3.5-5.1); Total Protein 6.8 G/DL (6.4-8.3)
[2018-02-02 13:35] LABS: Troponin I Only 0.063 NG/ML (0.00-0.045)
[2018-02-02] MEDS ORDERED: ALBUTEROL 2.5 MG/3 ML NEB RESP TX STA (13:51)
[2018-02-02] MEDS ORDERED: GLUCAGON 1 MG VIAL IM PRN (15:32)
[2018-02-02] MEDS ORDERED: LACTULOSE 20 GM/30 ML UDCUP PO PRN (15:32)
[2018-02-02] MEDS ORDERED: DEXTROSE 50% 25 GM/50 ML VIAL IV PRN (15:32)
[2018-02-02] MEDS ORDERED: DOCUSATE SODIUM 100 MG CAPSULE PO PRN (15:32)
[2018-02-02] MEDS ORDERED: MAGNESIUM SULF RIDER 2 GM in PREMIX 1 EACH IV PRN (15:32)
[2018-02-02] MEDS ORDERED: MORPHINE 2 MG/1 ML SYRINGE IV PRN (15:32)
[2018-02-02] MEDS ORDERED: MAGNESIUM SULF RIDER 4 GM in PREMIX 1 EACH IV PRN (15:32)
[2018-02-02] MEDS ORDERED: ACETAMINOPHEN 325 MG TABLET PO PRN (15:32)
[2018-02-02 17:17] LABS: Basophils % 0.4 % (0.0-0.8); Eosinophils # 0.2 10*3/uL (0.0-0.87); Eosinophils % 3.6 % (0.00-10.9); Hematocrit 25.4 VOL% (42.0-52.0); Hemoglobin 7.2 GM/DL (14.0-18.0); Immature Granulocytes % 0.2 %; Immature Granulocytes Absolute 0.01 #; Lymphocytes # 1.3 10*3/uL (1.4-4.0); Lymphocytes % 25.9 % (21.2-54.2); Mean Corpuscular HGB Conc 28.3 GM/DL (32-36); Mean Corpuscular Hemoglobin 21 PG (27-34); Mean Corpuscular Volume 72.8 FL (87-102); Monocytes # 0.5 10*3/uL (0.11-0.8); Monocytes % 10.3 % (1.7-12.7); Neutrophils # 2.9 10*3/uL (1.4-7.4); Neutrophils % 59.6 % (38.7-73.9); Platelet Count 153 T/CUMM (130-400); Red Blood Count 3.49 MC/CUMM (3.8-5.5); Red Cell Distribution Width 18.9 % (9.3-17.3); White Blood Count 4.9 T/CUMM (4-12)
[2018-02-02] MEDS: INSULIN LISPRO 100 UNIT/ML SUBCUT SCH ×2 (17:33→23:47)
[2018-02-02] MEDS: FUROSEMIDE 40 MG/4 ML VIAL IV SCH (17:34)
[2018-02-02 17:51] LABS: Hypochromasia 2+; Macrocytosis 1+; Polychromasia Slight
[2018-02-02 17:52] LABS: Hypochromasia 2+; Microcytosis 1+; Platelet Estimate Adequate
[2018-02-02 18:17] LABS: Folate > 24.0 NG/ML (5.4-24.0); Vitamin B12 1412 PG/ML (211-911)
[2018-02-02 18:57] LABS: Sedimentation Rate-Westergren 61 MM/HR (0-20)
[2018-02-02] MEDS ORDERED: ALBUTEROL 2.5 MG/3 ML NEB RESP TX PRN (19:00)
[2018-02-03] MEDS ORDERED: LORazepam 1 MG TABLET PO PRN (00:43)
[2018-02-03 05:06] LABS: Basophils % 0.2 % (0.0-0.8); Eosinophils # 0.2 10*3/uL (0.0-0.87); Eosinophils % 3.2 % (0.00-10.9); Hematocrit 25.7 VOL% (42.0-52.0); Hemoglobin 7.7 GM/DL (14.0-18.0); Immature Granulocytes % 0.2 %; Immature Granulocytes Absolute 0.01 #; Lymphocytes # 1.4 10*3/uL (1.4-4.0); Lymphocytes % 26.2 % (21.2-54.2); Mean Corpuscular Hemoglobin 21 PG (27-34); Mean Corpuscular Volume 68.9 FL (87-102); Monocytes # 0.5 10*3/uL (0.11-0.8); Monocytes % 9.7 % (1.7-12.7); Neutrophils # 3.2 10*3/uL (1.4-7.4); Neutrophils % 60.5 % (38.7-73.9); Platelet Count 131 T/CUMM (130-400); Red Blood Count 3.73 MC/CUMM (3.8-5.5); Red Cell Distribution Width 18.8 % (9.3-17.3); White Blood Count 5.4 T/CUMM (4-12)
[2018-02-03 05:31] LABS: Calcium 8.2 MG/DL (8.5-10.1); Osmolality,Calculated 276.5 MOS/KG (273-304); Potassium 3.6 MMOL/L (3.5-5.1); Risk Ratio 2.18; VLDL CHOLESTEROL 30.2 MG/DL
[2018-02-03 05:47] LABS: Anisocytosis 1+; Microcytosis 3+; Ovalocytes Few; Platelet Estimate Decreased; Poikilocytosis 1+
[2018-02-03 05:48] LABS: Polychromasia Few
[2018-02-03] MEDS: INSULIN LISPRO 100 UNIT/ML SUBCUT SCH ×2 (07:42→12:32)
[2018-02-03 08:09] LABS: Hemoglobin A1 (Alkaline) 97.4 % (96.5-98.5); Hemoglobin A2 (Alkaline) 2.6 % (1.5-3.5)
[2018-02-03] MEDS: FUROSEMIDE 40 MG/4 ML VIAL IV SCH (08:52)
[2018-02-03 08:55] VITALS: BP 163/82
[2018-02-03] MEDS ORDERED: ASPIRIN CHEW 81 MG TABLET PO SCH (09:00)
[2018-02-03] MEDS ORDERED: PANTOPRAZOLE 40 MG TABLET PO SCH (09:00)
[2018-02-03] MEDS ORDERED: FERROUS SULFATE ER 140 MG TABLET PO SCH (21:00)
== END 2018-02-03 12:20 | disposition home or self-care (01) | DRG 192 ==
LOC: N.ED 12:21 → N.EDINP 14:30 → SUATTDRO 14:30 → N.EDINP 15:59 → N.TELES 16:11
PROVIDERS: ATTEND Internal Medicine

== ENCOUNTER 2018-03-11 19:52 | Inpatient (IN) ==
[2018-03-11] MEDS ORDERED: ONDANSETRON 4 MG/2 ML VIAL IV STA (20:16)
[2018-03-11] MEDS ORDERED: LEVOFLOXACIN INJ 750 MG in PREMIX 1 EACH IV STA (20:16)
[2018-03-11] MEDS ORDERED: NITROGLYCERIN 2% OINT 1 INCH/GM PACK TOP STA (20:16)
[2018-03-11] MEDS ORDERED: methylPREDNISolone SOD SUC 125 MG/2 ML VIAL IV STA (20:16)
[2018-03-11] MEDS ORDERED: LEVOFLOXACIN INJ 150 ML IV ONE (20:23)
[2018-03-11] MEDS ORDERED: ONDANSETRON 4 MG/2 ML VIAL ONE (20:24)
[2018-03-11] MEDS ORDERED: NITROGLYCERIN 2% OINT 1 INCH/GM PACK TOP ONE (20:24)
[2018-03-11] MEDS ORDERED: methylPREDNISolone SOD SUC 125 MG/2 ML VIAL ONE (20:24)
[2018-03-11] MEDS ORDERED: ALBUTEROL 2.5 MG/3 ML NEB RESP TX SCH (20:30)
[2018-03-11 21:30] LABS: Basophils % 0.5 % (0.0-0.8); Eosinophils # 0.2 10*3/uL (0.0-0.87); Eosinophils % 3.5 % (0.00-10.9); Hematocrit 29.2 VOL% (42.0-52.0); Hemoglobin 8.1 GM/DL (14.0-18.0); Immature Granulocytes % 0.3 %; Immature Granulocytes Absolute 0.02 #; Lymphocytes % 14.4 % (21.2-54.2); Mean Corpuscular HGB Conc 27.7 GM/DL (32-36); Mean Corpuscular Hemoglobin 21 PG (27-34); Mean Corpuscular Volume 73.7 FL (87-102); Monocytes # 0.5 10*3/uL (0.11-0.8); Neutrophils # 4.9 10*3/uL (1.4-7.4); Neutrophils % 74.3 % (38.7-73.9); Platelet Count 115 T/CUMM (130-400); Red Blood Count 3.96 MC/CUMM (3.8-5.5); Red Cell Distribution Width 20.6 % (9.3-17.3); White Blood Count 6.6 T/CUMM (4-12)
[2018-03-11] MEDS ORDERED: MORPHINE 4 MG/1 ML VIAL ONE (21:34)
[2018-03-11 21:42] LABS: PT Patient Result 10.1 SECS; Partial Thromboplastin Time 24.1 SECS (0-40)
[2018-03-11 21:45] LABS: Alanine Aminotransferase 21 U/L (16-61); Albumin 3.3 G/DL (3.4-5.0); Alkaline Phosphatase 88 U/L (45-117); Aspartate Amino Transferase 30 U/L (0-37); Blood Urea Nitrogen 15 MG/DL (7-18); Calcium 8.2 MG/DL (8.5-10.1); Glucose 104 MG/DL (74-106); Osmolality,Calculated 281.3 MOS/KG (273-304); Potassium 4.4 MMOL/L (3.5-5.1); Sodium 141 MMOL/L (136-145); Troponin I Only < 0.015 NG/ML (0.00-0.045)
[2018-03-11] MEDS ORDERED: GLUCAGON 1 MG VIAL IM PRN (22:55)
[2018-03-11] MEDS ORDERED: DEXTROSE 50% 25 GM/50 ML VIAL IV PRN (22:55)
[2018-03-11] MEDS ORDERED: ENOXAPARIN 40 MG/0.4 ML SYRINGE SUBCUT SCH (23:00)
[2018-03-11] MEDS ORDERED: ALBUTEROL/IPRATROPIUM 3 ML NEB RESP TX PRN (23:00)
[2018-03-11] MEDS ORDERED: ALBUTEROL 2.5 MG/3 ML NEB RESP TX PRN (23:00)
[2018-03-11] MEDS ORDERED: NITROGLYCERIN SL 0.4 MG TABLET SL PRN (23:00)
[2018-03-11] MEDS ORDERED: LORazepam 1 MG TABLET PO PRN (23:04)
[2018-03-12] MEDS ORDERED: LEVOTHYROXINE 112 MCG TABLET PO SCH (07:00)
[2018-03-12 07:35] LABS: Hematocrit 26.8 VOL% (42.0-52.0); Hemoglobin 7.5 GM/DL (14.0-18.0); Immature Granulocytes % 1.4 %; Immature Granulocytes Absolute 0.07 #; Lymphocytes # 0.5 10*3/uL (1.4-4.0); Lymphocytes % 9.3 % (21.2-54.2); Mean Corpuscular Hemoglobin 20 PG (27-34); Mean Corpuscular Volume 72.6 FL (87-102); Monocytes # 0.1 10*3/uL (0.11-0.8); Monocytes % 1.8 % (1.7-12.7); Neutrophils # 4.3 10*3/uL (1.4-7.4); Neutrophils % 87.5 % (38.7-73.9); Platelet Count 110 T/CUMM (130-400); Red Blood Count 3.69 MC/CUMM (3.8-5.5); Red Cell Distribution Width 20.4 % (9.3-17.3); White Blood Count 4.9 T/CUMM (4-12)
[2018-03-12] MEDS ORDERED: FUROSEMIDE 40 MG/4 ML VIAL IV SCH (08:00)
[2018-03-12] MEDS: INSULIN LISPRO 100 UNIT/ML SUBCUT SCH ×2 (08:02→11:52)
[2018-03-12 08:13] LABS: Bilirubin,Total 0.4 MG/DL (0.2-1.0); Calcium 8.2 MG/DL (8.5-10.1); Osmolality,Calculated 277.7 MOS/KG (273-304); Potassium 5.5 MMOL/L (3.5-5.1); Total Protein 6.8 G/DL (6.4-8.3)
[2018-03-12] MEDS ORDERED: TAMSULOSIN 0.4 MG CAPSULE PO SCH (09:00)
[2018-03-12] MEDS ORDERED: COLESTIPOL 1 GM TABLET PO SCH (09:00)
[2018-03-12] MEDS ORDERED: CARVEDILOL 3.125 MG TABLET PO SCH (09:00)
[2018-03-12] MEDS ORDERED: NON-FORMULARY MEDICATION (Tiotropium Inhalation 18 MCG) INH SCH (09:00)
[2018-03-12] MEDS ORDERED: GABAPENTIN 300 MG CAPSULE PO SCH (09:00)
[2018-03-12] MEDS ORDERED: ISOSORBIDE MONONITRATE 60 MG TABLET PO SCH (09:00)
[2018-03-12] MEDS ORDERED: SERTRALINE 100 MG TABLET PO SCH (09:00)
[2018-03-12] MEDS ORDERED: INSULIN GLARGINE 100 UNIT/ML SUBCUT SCH (09:00)
[2018-03-12 10:27] LABS: % Iron Saturation 6.3 % (18-50); Ferritin 15.1 ng/ml (26-388)
[2018-03-12 11:21] LABS: Hypochromasia 2+; Macrocytosis 1+; Target Cells Slight
[2018-03-12 12:22] VITALS: BP 134/80
[2018-03-12] MEDS ORDERED: ROSUVASTATIN 20 MG TABLET PO SCH (21:00)
[2018-03-12] MEDS ORDERED: ASPIRIN EC 81 MG TABLET PO SCH (21:00)
[2018-03-12] MEDS ORDERED: MULTIVITAMIN (CENTRUM) TABLET PO SCH (21:00)
== END 2018-03-12 14:05 | disposition home or self-care (01) | DRG 292 ==
LOC: N.ED 19:52 → N.EDINP 22:55 → N.2E 23:58
PROVIDERS: ADMIT Internal Medicine; ATTEND Internal Medicine

== ENCOUNTER 2018-03-15 11:26 | Inpatient (IN) ==
[2018-03-15] MEDS ORDERED: FUROSEMIDE 100 MG/10 ML VIAL IV STA (12:53)
[2018-03-15] MEDS ORDERED: FUROSEMIDE 20 MG/2 ML VIAL ONE (13:25)
[2018-03-15] MEDS ORDERED: FUROSEMIDE 40 MG/4 ML VIAL ONE (13:25)
[2018-03-15 13:36] LABS: PT Patient Result 10.4 SECS
[2018-03-15 13:40] LABS: Basophils % 0.2 % (0.0-0.8); Eosinophils # 0.1 10*3/uL (0.0-0.87); Eosinophils % 0.9 % (0.00-10.9); Hematocrit 29.4 VOL% (42.0-52.0); Hemoglobin 8.3 GM/DL (14.0-18.0); Immature Granulocytes % 0.4 %; Immature Granulocytes Absolute 0.04 #; Lymphocytes # 1.1 10*3/uL (1.4-4.0); Lymphocytes % 11.3 % (21.2-54.2); Mean Corpuscular HGB Conc 28.2 GM/DL (32-36); Mean Corpuscular Hemoglobin 20 PG (27-34); Mean Corpuscular Volume 72.2 FL (87-102); Monocytes # 0.7 10*3/uL (0.11-0.8); Monocytes % 7.3 % (1.7-12.7); Neutrophils # 7.8 10*3/uL (1.4-7.4); Neutrophils % 79.9 % (38.7-73.9); Platelet Count 123 T/CUMM (130-400); Red Blood Count 4.07 MC/CUMM (3.8-5.5); Red Cell Distribution Width 20.8 % (9.3-17.3); White Blood Count 9.8 T/CUMM (4-12)
[2018-03-15 13:51] LABS: Albumin 3.4 G/DL (3.4-5.0); Bilirubin,Total 0.5 MG/DL (0.2-1.0); Calcium 8.6 MG/DL (8.5-10.1); Osmolality,Calculated 278.5 MOS/KG (273-304); Potassium 4.7 MMOL/L (3.5-5.1); Total Protein 7.8 G/DL (6.4-8.3); Troponin I Only 0.07 NG/ML (0.00-0.045)
[2018-03-15 13:55] LABS: Anisocytosis 1+; Polychromasia 1+; Tear Drop Cells Few
[2018-03-15 13:56] LABS: Elliptocytes 1+; Hypochromasia 1+
[2018-03-15 13:58] LABS: Microcytosis 2+; Platelet Estimate Decreased
[2018-03-15] MEDS ORDERED: DOCUSATE SODIUM 100 MG CAPSULE PO PRN (16:24)
[2018-03-15] MEDS ORDERED: LACTULOSE 20 GM/30 ML UDCUP PO PRN (16:24)
[2018-03-15] MEDS ORDERED: ACETAMINOPHEN 325 MG TABLET PO PRN (16:24)
[2018-03-15] MEDS ORDERED: MAGNESIUM SULF RIDER 4 GM in PREMIX 1 EACH IV PRN (16:29)
[2018-03-15] MEDS ORDERED: POTASSIUM CHLORIDE 20 MEQ/15 ML UDCUP PER TUBE PRN (16:29)
[2018-03-15] MEDS ORDERED: GLUCAGON 1 MG VIAL IM PRN (16:29)
[2018-03-15] MEDS ORDERED: MAGNESIUM SULF RIDER 2 GM in PREMIX 1 EACH IV PRN (16:29)
[2018-03-15] MEDS ORDERED: DEXTROSE 50% 25 GM/50 ML VIAL IV PRN (16:29)
[2018-03-15] MEDS: metFORMIN 500 MG TABLET PO SCH (17:13)
[2018-03-15] MEDS: INSULIN LISPRO 100 UNIT/ML SUBCUT SCH ×2 (17:14→22:01)
[2018-03-15] MEDS: ROSUVASTATIN 20 MG TABLET PO SCH (21:34)
[2018-03-15] MEDS: ASPIRIN EC 81 MG TABLET PO SCH (21:34)
[2018-03-15] MEDS: SERTRALINE 100 MG TABLET PO SCH (21:34)
[2018-03-15] MEDS: CARVEDILOL 3.125 MG TABLET PO SCH (21:34)
[2018-03-16 04:41] LABS: Basophils % 0.2 % (0.0-0.8); Eosinophils # 0.2 10*3/uL (0.0-0.87); Eosinophils % 2.1 % (0.00-10.9); Hematocrit 29.3 VOL% (42.0-52.0); Hemoglobin 8.6 GM/DL (14.0-18.0); Immature Granulocytes % 0.2 %; Immature Granulocytes Absolute 0.02 #; Lymphocytes # 1.6 10*3/uL (1.4-4.0); Lymphocytes % 18.7 % (21.2-54.2); Mean Corpuscular HGB Conc 29.4 GM/DL (32-36); Mean Corpuscular Hemoglobin 21 PG (27-34); Mean Corpuscular Volume 70.4 FL (87-102); Monocytes # 0.8 10*3/uL (0.11-0.8); Monocytes % 9.1 % (1.7-12.7); Neutrophils # 5.9 10*3/uL (1.4-7.4); Neutrophils % 69.7 % (38.7-73.9); Platelet Count 125 T/CUMM (130-400); Red Blood Count 4.16 MC/CUMM (3.8-5.5); White Blood Count 8.5 T/CUMM (4-12)
[2018-03-16 05:09] LABS: Giant Platelets Few; Hypochromasia 1+; Microcytosis 1+; Ovalocytes Slight; Platelet Estimate Normal
[2018-03-16 05:12] LABS: Calcium 8.6 MG/DL (8.5-10.1); Osmolality,Calculated 277.5 MOS/KG (273-304); Potassium 4.8 MMOL/L (3.5-5.1)
[2018-03-16] MEDS: LEVOTHYROXINE 112 MCG TABLET PO SCH (06:39)
[2018-03-16] MEDS: SERTRALINE 100 MG TABLET PO SCH ×2 (08:51→21:44)
[2018-03-16] MEDS: metFORMIN 500 MG TABLET PO SCH ×2 (08:51→16:16)
[2018-03-16] MEDS: INSULIN LISPRO 100 UNIT/ML SUBCUT SCH ×4 (08:51→21:45)
[2018-03-16] MEDS: FUROSEMIDE 40 MG/4 ML VIAL IV SCH ×2 (08:51→16:16)
[2018-03-16] MEDS: ISOSORBIDE MONONITRATE 60 MG TABLET PO SCH (08:51)
[2018-03-16] MEDS: CARVEDILOL 3.125 MG TABLET PO SCH ×2 (08:52→21:44)
[2018-03-16] MEDS: PANTOPRAZOLE 40 MG TABLET PO SCH (08:52)
[2018-03-16] MEDS: ROSUVASTATIN 20 MG TABLET PO SCH (21:44)
[2018-03-16] MEDS: ASPIRIN EC 81 MG TABLET PO SCH (21:44)
[2018-03-17 05:45] LABS: Basophils % 0.3 % (0.0-0.8); Eosinophils # 0.2 10*3/uL (0.0-0.87); Eosinophils % 2.3 % (0.00-10.9); Hematocrit 29.9 VOL% (42.0-52.0); Hemoglobin 9.1 GM/DL (14.0-18.0); Immature Granulocytes % 0.4 %; Immature Granulocytes Absolute 0.03 #; Lymphocytes # 1.8 10*3/uL (1.4-4.0); Lymphocytes % 23.1 % (21.2-54.2); Mean Corpuscular HGB Conc 30.4 GM/DL (32-36); Mean Corpuscular Hemoglobin 21 PG (27-34); Mean Corpuscular Volume 68.3 FL (87-102); Monocytes # 0.8 10*3/uL (0.11-0.8); Monocytes % 10.4 % (1.7-12.7); Neutrophils % 63.5 % (38.7-73.9); Platelet Count 126 T/CUMM (130-400); Red Blood Count 4.38 MC/CUMM (3.8-5.5); Red Cell Distribution Width 21.1 % (9.3-17.3); White Blood Count 7.8 T/CUMM (4-12)
[2018-03-17 05:54] LABS: Calcium 8.3 MG/DL (8.5-10.1); Potassium 3.7 MMOL/L (3.5-5.1)
[2018-03-17 06:11] LABS: Giant Platelets Few; Hypochromasia 1+; Ovalocytes Slight; Platelet Estimate Normal
[2018-03-17 06:12] LABS: Microcytosis Slight
[2018-03-17] MEDS: LEVOTHYROXINE 112 MCG TABLET PO SCH (06:45)
[2018-03-17] MEDS: INSULIN LISPRO 100 UNIT/ML SUBCUT SCH ×4 (08:34→22:00)
[2018-03-17] MEDS: CARVEDILOL 3.125 MG TABLET PO SCH ×2 (08:39→22:01)
[2018-03-17] MEDS: metFORMIN 500 MG TABLET PO SCH ×2 (08:39→16:57)
[2018-03-17] MEDS: FUROSEMIDE 40 MG/4 ML VIAL IV SCH ×2 (08:39→16:57)
[2018-03-17] MEDS: ISOSORBIDE MONONITRATE 60 MG TABLET PO SCH (08:39)
[2018-03-17] MEDS: PANTOPRAZOLE 40 MG TABLET PO SCH (08:39)
[2018-03-17] MEDS: SERTRALINE 100 MG TABLET PO SCH ×2 (08:39→22:02)
[2018-03-17] MEDS ORDERED: LORazepam 1 MG TABLET PO PRN (09:40)
[2018-03-17] MEDS: IPRATROPIUM 500 MCG/2.5 ML NEB RESP TX SCH ×3 (14:14→19:42)
[2018-03-17] MEDS ORDERED: COLESTIPOL 1 GM TABLET PO SCH (21:00)
[2018-03-17] MEDS: ROSUVASTATIN 20 MG TABLET PO SCH (22:01)
[2018-03-17] MEDS: ASPIRIN EC 81 MG TABLET PO SCH (22:02)
[2018-03-18 04:30] LABS: Calcium 8.1 MG/DL (8.5-10.1); Osmolality,Calculated 274.1 MOS/KG (273-304); Potassium 3.4 MMOL/L (3.5-5.1)
[2018-03-18 04:58] LABS: Basophils % 0.3 % (0.0-0.8); Eosinophils # 0.2 10*3/uL (0.0-0.87); Eosinophils % 2.2 % (0.00-10.9); Hematocrit 30.5 VOL% (42.0-52.0); Hemoglobin 8.9 GM/DL (14.0-18.0); Immature Granulocytes % 0.4 %; Immature Granulocytes Absolute 0.04 #; Lymphocytes # 1.9 10*3/uL (1.4-4.0); Mean Corpuscular HGB Conc 29.2 GM/DL (32-36); Mean Corpuscular Hemoglobin 21 PG (27-34); Mean Corpuscular Volume 70.9 FL (87-102); Monocytes # 0.9 10*3/uL (0.11-0.8); Monocytes % 9.8 % (1.7-12.7); Neutrophils # 6.1 10*3/uL (1.4-7.4); Neutrophils % 66.3 % (38.7-73.9); Platelet Count 148 T/CUMM (130-400); Red Cell Distribution Width 21.3 % (9.3-17.3); White Blood Count 9.2 T/CUMM (4-12)
[2018-03-18 05:49] LABS: Hypochromasia 1+; Ovalocytes Slight; Platelet Estimate Normal
[2018-03-18 05:50] LABS: Microcytosis Slight
[2018-03-18] MEDS: LEVOTHYROXINE 112 MCG TABLET PO SCH (06:10)
[2018-03-18] MEDS ORDERED: POTASSIUM CHLORIDE 20 MEQ TABLET PO PRN (06:11)
[2018-03-18 08:08] VITALS: BP 135/70
[2018-03-18] MEDS: IPRATROPIUM 500 MCG/2.5 ML NEB RESP TX SCH (08:14)
[2018-03-18] MEDS: INSULIN LISPRO 100 UNIT/ML SUBCUT SCH (09:02)
[2018-03-18] MEDS: FUROSEMIDE 40 MG/4 ML VIAL IV SCH (09:10)
[2018-03-18] MEDS: metFORMIN 500 MG TABLET PO SCH (09:10)
[2018-03-18] MEDS: CARVEDILOL 3.125 MG TABLET PO SCH (09:10)
[2018-03-18] MEDS: ISOSORBIDE MONONITRATE 60 MG TABLET PO SCH (09:10)
[2018-03-18] MEDS: SERTRALINE 100 MG TABLET PO SCH (09:10)
[2018-03-18] MEDS: PANTOPRAZOLE 40 MG TABLET PO SCH (09:10)
[2018-03-18] MEDS ORDERED: POTASSIUM CHLORIDE 20 MEQ TABLET PO ONE (10:03)
[2018-03-18] MEDS ORDERED: IPRATROPIUM 500 MCG/2.5 ML NEB RESP TX SCH (11:00)
== END 2018-03-18 13:15 | disposition home health service (06) | DRG 292 ==
LOC: N.ED 11:26 → N.EDINP 11:26 → N.TELEN 15:20
PROVIDERS: ADMIT Internal Medicine; ATTEND Internal Medicine

== ENCOUNTER 2018-03-30 03:16 | Observation (INO) ==
[2018-03-30 04:56] LABS: Apearance,Urine CLEAR (Clear); Bacteria,Urine Many /HPF (Few); Bilirubin,Urine Negative (Negative); Blood, Urine Negative (Negative); Glucose,Urine (UA) Negative (Negative); Hyaline Casts,Urine 11 /LPF (0-3); Ketones,Urine Negative (Negative); Mucus,Urine Occasional /LPF (Occasional); Nitrite,Urine Negative (Negative); Protein,Urine Negative; RBC,Urine 1 /HPF (0-4); Squamous Epithelial Cell,Urine Occasional /HPF (0-10); Urine Color Yellow (Yellow); Urine Specific Gravity 1.006 (1.001-1.035); Urine Urobilinogen < 2.0 EU/DL (0.2-1.0); WBC,Urine 5 /HPF (0-6)
[2018-03-30 04:57] LABS: Basophils % 0.5 % (0.0-0.8); Eosinophils # 0.3 10*3/uL (0.0-0.87); Eosinophils % 3.5 % (0.00-10.9); Hematocrit 31.1 VOL% (42.0-52.0); Immature Granulocytes % 0.5 %; Immature Granulocytes Absolute 0.04 #; Lymphocytes # 1.7 10*3/uL (1.4-4.0); Lymphocytes % 19.7 % (21.2-54.2); Mean Corpuscular HGB Conc 28.9 GM/DL (32-36); Mean Corpuscular Hemoglobin 20 PG (27-34); Mean Corpuscular Volume 70.5 FL (87-102); Monocytes # 0.7 10*3/uL (0.11-0.8); Monocytes % 8.4 % (1.7-12.7); Neutrophils # 5.8 10*3/uL (1.4-7.4); Neutrophils % 67.4 % (38.7-73.9); Platelet Count 161 T/CUMM (130-400); Red Blood Count 4.41 MC/CUMM (3.8-5.5); Red Cell Distribution Width 21.1 % (9.3-17.3); White Blood Count 8.6 T/CUMM (4-12)
[2018-03-30 04:58] LABS: Alanine Aminotransferase 23 U/L (16-61); Albumin 3.5 G/DL (3.4-5.0); Alkaline Phosphatase 96 U/L (45-117); Amylase 40 U/L (25-115); Aspartate Amino Transferase 28 U/L (0-37); Bilirubin,Total < 0.39 MG/DL (0.2-1.0); Blood Urea Nitrogen 16 MG/DL (7-18); Calcium 8.5 MG/DL (8.5-10.1); Glucose 119 MG/DL (74-106); Osmolality,Calculated 280.4 MOS/KG (273-304); Potassium 4.8 MMOL/L (3.5-5.1); Sodium 140 MMOL/L (136-145); Total Protein 7.4 G/DL (6.4-8.3); Troponin I Only < 0.015 NG/ML (0.00-0.045)
[2018-03-30 05:03] LABS: PT Patient Result 10.2 SECS; Partial Thromboplastin Time 24.7 SECS (0-40)
[2018-03-30] MEDS ORDERED: GLUCAGON 1 MG VIAL IM PRN (05:25)
[2018-03-30] MEDS ORDERED: DEXTROSE 50% 25 GM/50 ML VIAL IV PRN (05:25)
[2018-03-30] MEDS ORDERED: ONDANSETRON 4 MG/2 ML VIAL IV PRN (05:25)
[2018-03-30] MEDS ORDERED: ACETAMINOPHEN 325 MG TABLET PO PRN (05:25)
[2018-03-30] MEDS ORDERED: MORPHINE 4 MG/1 ML VIAL IV PRN (05:25)
[2018-03-30] MEDS ORDERED: LORazepam 1 MG TABLET PO PRN (05:29)
[2018-03-30] MEDS ORDERED: NITROGLYCERIN SL 0.4 MG TABLET SL PRN (05:29)
[2018-03-30 05:52] LABS: Risk Ratio 2.57
[2018-03-30] MEDS: LEVOTHYROXINE 112 MCG TABLET PO SCH (06:40)
[2018-03-30] MEDS ORDERED: metFORMIN 500 MG TABLET PO SCH (08:00)
[2018-03-30] MEDS ORDERED: PANTOPRAZOLE 40 MG TABLET PO SCH (09:00)
[2018-03-30] MEDS ORDERED: POTASSIUM CHLORIDE 20 MEQ TABLET PO SCH (09:00)
[2018-03-30] MEDS: GABAPENTIN 600 MG TABLET PO SCH ×3 (09:26→22:20)
[2018-03-30] MEDS: SERTRALINE 100 MG TABLET PO SCH ×2 (09:26→22:20)
[2018-03-30] MEDS: ISOSORBIDE MONONITRATE 60 MG TABLET PO SCH (09:27)
[2018-03-30] MEDS: CARVEDILOL 3.125 MG TABLET PO SCH ×2 (09:27→17:07)
[2018-03-30] MEDS: TAMSULOSIN 0.4 MG CAPSULE PO SCH (09:27)
[2018-03-30] MEDS: FUROSEMIDE 20 MG TABLET PO SCH ×2 (09:27→17:07)
[2018-03-30] MEDS: ASPIRIN EC 81 MG TABLET PO SCH (09:27)
[2018-03-30] MEDS: ENOXAPARIN 40 MG/0.4 ML SYRINGE SUBCUT SCH (09:28)
[2018-03-30] MEDS: INSULIN LISPRO 100 UNIT/ML SUBCUT SCH ×4 (09:30→22:21)
[2018-03-30] MEDS: sitaGLIPtin 25 MG TABLET PO SCH (09:30)
[2018-03-30] MEDS: IPRATROPIUM 500 MCG/2.5 ML NEB RESP TX SCH ×4 (15:40→20:05)
[2018-03-30] MEDS ORDERED: INSULIN GLARGINE 100 UNIT/ML SUBCUT SCH (21:00)
[2018-03-30] MEDS ORDERED: MULTIVITAMIN (CENTRUM) TABLET PO SCH (21:00)
[2018-03-30] MEDS ORDERED: CYANOCOBALAMIN 500 MCG TABLET PO SCH (21:00)
[2018-03-30] MEDS ORDERED: COLESTIPOL 1 GM TABLET PO SCH (21:00)
[2018-03-30] MEDS ORDERED: FOLIC ACID 1 MG TABLET PO SCH (21:00)
[2018-03-30] MEDS ORDERED: ROSUVASTATIN 20 MG TABLET PO SCH (21:00)
[2018-03-30] MEDS: PANTOPRAZOLE 40 MG TABLET PO SCH (22:21)
[2018-03-31 06:05] LABS: Basophils % 0.6 % (0.0-0.8); Eosinophils # 0.2 10*3/uL (0.0-0.87); Eosinophils % 3.1 % (0.00-10.9); Immature Granulocytes % 0.2 %; Immature Granulocytes Absolute 0.01 #; Lymphocytes # 1.4 10*3/uL (1.4-4.0); Lymphocytes % 25.5 % (21.2-54.2); Mean Corpuscular HGB Conc 28.6 GM/DL (32-36); Mean Corpuscular Hemoglobin 20 PG (27-34); Mean Corpuscular Volume 71.4 FL (87-102); Monocytes # 0.5 10*3/uL (0.11-0.8); Monocytes % 8.6 % (1.7-12.7); Neutrophils # 3.4 10*3/uL (1.4-7.4); Platelet Count 134 T/CUMM (130-400); Red Blood Count 3.92 MC/CUMM (3.8-5.5); Red Cell Distribution Width 20.9 % (9.3-17.3); White Blood Count 5.5 T/CUMM (4-12)
[2018-03-31 06:37] LABS: Calcium 8.1 MG/DL (8.5-10.1); Osmolality,Calculated 283.1 MOS/KG (273-304); Potassium 3.8 MMOL/L (3.5-5.1)
[2018-03-31] MEDS: LEVOTHYROXINE 112 MCG TABLET PO SCH (06:52)
[2018-03-31 06:59] LABS: Elliptocytes Few
[2018-03-31 07:00] LABS: Hypochromasia 1+; Microcytosis Slight
[2018-03-31 07:02] LABS: Stomatocytes Few
[2018-03-31 07:03] LABS: Anisocytosis 1+; Platelet Estimate Adequate; Tear Drop Cells Few
[2018-03-31] MEDS: IPRATROPIUM 500 MCG/2.5 ML NEB RESP TX SCH ×2 (08:03→11:21)
[2018-03-31] MEDS: ISOSORBIDE MONONITRATE 60 MG TABLET PO SCH (08:47)
[2018-03-31] MEDS: GABAPENTIN 600 MG TABLET PO SCH (08:47)
[2018-03-31] MEDS: FUROSEMIDE 20 MG TABLET PO SCH (08:47)
[2018-03-31] MEDS: sitaGLIPtin 25 MG TABLET PO SCH (08:47)
[2018-03-31] MEDS: PANTOPRAZOLE 40 MG TABLET PO SCH (08:48)
[2018-03-31] MEDS: TAMSULOSIN 0.4 MG CAPSULE PO SCH (08:48)
[2018-03-31] MEDS: CARVEDILOL 3.125 MG TABLET PO SCH (08:48)
[2018-03-31] MEDS: ASPIRIN EC 81 MG TABLET PO SCH (08:48)
[2018-03-31] MEDS: SERTRALINE 100 MG TABLET PO SCH (08:48)
[2018-03-31] MEDS: ENOXAPARIN 40 MG/0.4 ML SYRINGE SUBCUT SCH (08:49)
[2018-03-31] MEDS: INSULIN LISPRO 100 UNIT/ML SUBCUT SCH ×2 (08:50→12:21)
[2018-03-31 12:03] VITALS: BP 129/60
== END 2018-03-31 13:50 | disposition home or self-care (01) ==
LOC: N.EDINP 03:16 → N.ED 03:16 → N.TELEN 05:40
PROVIDERS: ADMIT Internal Medicine; ATTEND Internal Medicine

== ENCOUNTER 2018-11-06 06:05 | Inpatient (IN) ==
[2018-11-02 14:34] LABS: Basophils % 0.5 % (0.0-0.8); Eosinophils # 0.2 10*3/uL (0.0-0.87); Eosinophils % 2.4 % (0.00-10.9); Hematocrit 42.2 VOL% (42.0-52.0); Hemoglobin 13.2 GM/DL (14.0-18.0); Immature Granulocytes % 0.3 %; Immature Granulocytes Absolute 0.02 #; Lymphocytes # 1.5 10*3/uL (1.4-4.0); Lymphocytes % 22.4 % (21.2-54.2); Mean Corpuscular HGB Conc 31.3 GM/DL (32-36); Mean Corpuscular Hemoglobin 29 PG (27-34); Mean Corpuscular Volume 92.5 FL (87-102); Monocytes # 0.5 10*3/uL (0.11-0.8); Monocytes % 6.9 % (1.7-12.7); Neutrophils # 4.4 10*3/uL (1.4-7.4); Neutrophils % 67.5 % (38.7-73.9); Platelet Count 127 T/CUMM (130-400); Red Blood Count 4.56 MC/CUMM (3.8-5.5); Red Cell Distribution Width 14.9 % (9.3-17.3); White Blood Count 6.6 T/CUMM (4-12)
[2018-11-02 14:51] LABS: Calcium 8.3 MG/DL (8.5-10.1); Osmolality,Calculated 280.7 MOS/KG (273-304); Potassium 4.3 MMOL/L (3.5-5.1)
[~2018-11-06 06:05] MED LIST: ceFAZolin 1,000 MG in SYRINGE 1 EACH IV ONE
[2018-11-06] MEDS ORDERED: FAMOTIDINE 20 MG/2 ML VIAL IV ONE (07:39)
[2018-11-06] MEDS ORDERED: ceFAZolin 1,000 MG VIAL ONE (08:09)
[2018-11-06] MEDS ORDERED: LIDOCAINE 1% 20 ML VIAL ONE (08:28)
[2018-11-06] MEDS ORDERED: HEPARIN 5,000 UNIT/1 ML VIAL ONE (08:28)
[2018-11-06] MEDS ORDERED: FAMOTIDINE 20 MG TABLET ONE (08:32)
[2018-11-06] MEDS ORDERED: FAMOTIDINE 20 MG TABLET PO ONE (08:34)
[2018-11-06] MEDS ORDERED: LACTATED RINGERS 1,000 ML IV SCH (09:00)
[2018-11-06] MEDS ORDERED: NALOXONE 0.4 MG/ML VIAL IV PRN (10:31)
[2018-11-06] MEDS ORDERED: HYDROmorphone 2 MG/1 ML VIAL IV PRN ×2 (10:31)
[2018-11-06] MEDS ORDERED: DEXTROSE 50% 25 GM/50 ML VIAL IV PRN (10:31)
[2018-11-06] MEDS ORDERED: GLUCAGON 1 MG VIAL IM PRN (10:31)
[2018-11-06] MEDS ORDERED: oxyCODONE/ACETAMINOPHEN 5-325 MG TABLET PO PRN ×2 (10:31)
[2018-11-06] MEDS ORDERED: ONDANSETRON 4 MG/2 ML VIAL IV PRN ×2 (10:31→10:53)
[2018-11-06] MEDS ORDERED: PROMETHAZINE 25 MG/1 ML VIAL IM PRN (10:31)
[2018-11-06] MEDS ORDERED: LORazepam 1 MG TABLET PO PRN (10:34)
[2018-11-06] MEDS ORDERED: NITROGLYCERIN SL 0.4 MG TABLET SL PRN (10:34)
[2018-11-06] MEDS: HYDROmorphone 2 MG/1 ML VIAL IV PRN ×2 (10:50→11:00)
[2018-11-06] MEDS ORDERED: HYDROmorphone 2 MG/1 ML VIAL ONE (10:52)
[2018-11-06] MEDS ORDERED: ONDANSETRON 4 MG/2 ML VIAL ONE (10:52)
[2018-11-06] MEDS ORDERED: PROPOFOL 200 MG/20 ML VIAL IV ONE (10:54)
[2018-11-06] MEDS ORDERED: SEVOFLURANE 1 UNIT/15 MINUTE INH ONE (10:54)
[2018-11-06] MEDS ORDERED: HEPARIN 10,000 UNIT/10 ML VIAL ONE (10:54)
[2018-11-06] MEDS ORDERED: GLYCOPYRROLATE 0.4 MG/2 ML VIAL ONE ×2 (10:55)
[2018-11-06] MEDS ORDERED: ePHEDrine 50 MG/ML AMP ONE (10:55)
[2018-11-06] MEDS ORDERED: fentaNYL 100 MCG/2 ML VIAL ONE (10:55)
[2018-11-06] MEDS ORDERED: ETOMIDATE 40 MG/20 ML VIAL IV ONE (10:55)
[2018-11-06] MEDS ORDERED: ROCURONIUM 100 MG/10 ML VIAL IV ONE (10:56)
[2018-11-06] MEDS ORDERED: NEOSTIGMINE 10 MG/10 ML VIAL ONE (10:56)
[2018-11-06] MEDS ORDERED: SODIUM CHLORIDE 0.9% 1,000 ML IV ONE (10:56)
[2018-11-06] MEDS ORDERED: PHENYLEPHRINE 1 MG/10 ML SYRINGE IV ONE ×2 (10:56)
[2018-11-06] MEDS ORDERED: PROTAMINE SULFATE 50 MG/5 ML VIAL IV ONE (10:56)
[2018-11-06] MEDS ORDERED: NITROPRUSSIDE 100 MG in DEXTROSE 5% 250 ML IV SCH (11:00)
[2018-11-06] MEDS ORDERED: PHENYLEPHRINE DRIP 40 MG/250 ML PREMIX IV SCH (11:00)
[2018-11-06] MEDS: LACTATED RINGERS 1,000 ML IV SCH ×2 (11:55→21:30)
[2018-11-06] MEDS: INSULIN REGULAR 100 UNIT/ML SUBCUT SCH ×3 (12:32→20:44)
[2018-11-06] MEDS: GABAPENTIN 600 MG TABLET PO SCH ×2 (14:57→20:44)
[2018-11-06] MEDS: FUROSEMIDE 20 MG TABLET PO SCH (15:41)
[2018-11-06] MEDS: CARVEDILOL 3.125 MG TABLET PO SCH (20:43)
[2018-11-06] MEDS: SERTRALINE 100 MG TABLET PO SCH (20:44)
[2018-11-06] MEDS ORDERED: ROSUVASTATIN 20 MG TABLET PO SCH (21:00)
[2018-11-06] MEDS ORDERED: NON-FORMULARY MEDICATION (Potassium [Potassium] 99 MG) PO SCH (21:00)
[2018-11-07] MEDS ORDERED: LEVOTHYROXINE 112 MCG TABLET PO SCH (07:00)
[2018-11-07] MEDS ORDERED: sitaGLIPtin 100 MG TABLET PO SCH (09:00)
[2018-11-07] MEDS ORDERED: ISOSORBIDE MONONITRATE 60 MG TABLET PO SCH (09:00)
[2018-11-07] MEDS ORDERED: CLOPIDOGREL 75 MG TABLET PO SCH (09:00)
[2018-11-07] MEDS ORDERED: COLESTIPOL 1 GM TABLET PO SCH (09:00)
[2018-11-07] MEDS ORDERED: ASPIRIN EC 81 MG TABLET PO SCH ×2 (09:00)
[2018-11-07] MEDS: SERTRALINE 100 MG TABLET PO SCH (09:11)
[2018-11-07] MEDS: CARVEDILOL 3.125 MG TABLET PO SCH (09:12)
[2018-11-07] MEDS: GABAPENTIN 600 MG TABLET PO SCH ×2 (09:12→17:10)
[2018-11-07] MEDS: FUROSEMIDE 20 MG TABLET PO SCH ×2 (09:12→17:10)
[2018-11-07] MEDS: INSULIN REGULAR 100 UNIT/ML SUBCUT SCH ×3 (09:12→17:10)
[2018-11-07] MEDS: LACTATED RINGERS 1,000 ML IV SCH (09:16)
[2018-11-07] MEDS ORDERED: metFORMIN 500 MG TABLET PO SCH (09:30)
[2018-11-07 12:41] VITALS: BP 135/57
[2018-11-07] MEDS ORDERED: INSULIN GLARGINE 100 UNIT/ML SUBCUT SCH (21:00)
== END 2018-11-07 17:00 | disposition home or self-care (01) | DRG 39 ==
LOC: N.SDSINP 06:05 → N.ICU 11:41 → N.4E 11-07 10:39
PROVIDERS: ADMIT Surgery; ATTEND Surgery

== ENCOUNTER 2019-09-12 17:31 | Observation (INO) ==
[2019-09-12 18:10] LABS: Basophils % 0.3 % (0.0-0.8); Eosinophils # 0.1 10*3/uL (0.0-0.87); Eosinophils % 0.8 % (0.00-10.9); Hemoglobin 13.8 GM/DL (14.0-18.0); Immature Granulocytes % 0.3 %; Immature Granulocytes Absolute 0.02 #; Lymphocytes # 1.3 10*3/uL (1.4-4.0); Lymphocytes % 20.4 % (21.2-54.2); Mean Corpuscular HGB Conc 31.4 GM/DL (32-36); Mean Corpuscular Volume 90.5 FL (87-102); Mean Platelet Volume 13.2 FL (9.6-12.0); Monocytes % 5.5 % (1.7-12.7); Neutrophils % 72.7 % (38.7-73.9); Platelet Count 136 T/CUMM (130-400); Red Blood Count 4.86 MC/CUMM (3.8-5.5); Red Cell Distribution Width 15.3 % (9.3-17.3); White Blood Count 6.5 T/CUMM (4-12)
[2019-09-12 18:20] LABS: PT Patient Result 10.5 SECS (9.6-12.2)
[2019-09-12 18:36] LABS: Albumin 3.6 G/DL (3.4-5.0); Bilirubin,Total 0.9 MG/DL (0.2-1.0); Calcium 8.6 MG/DL (8.5-10.1); Osmolality,Calculated 275.7 MOS/KG (273-304); Total Protein 7.5 G/DL (6.4-8.3)
[2019-09-12 19:53] LABS: Apearance,Urine Slightly Hazy (Clear); Bacteria,Urine Many /HPF (Few); Bilirubin,Urine Negative (Negative); Blood, Urine Small mg/dL (Negative); Glucose,Urine (UA) Negative (Negative); Hyaline Casts,Urine 19 /LPF (0-3); Ketones,Urine Negative (Negative); Mucus,Urine Occasional /LPF (Occasional); Nitrite,Urine Positive (Negative); Protein,Urine Negative; RBC,Urine 10 /HPF (0-4); Squamous Epithelial Cell,Urine Occasional /HPF (0-10); Urine Color Yellow (Yellow); Urine Specific Gravity 1.012 (1.001-1.035); Urine Urobilinogen < 2.0 EU/DL (0.2-1.0); WBC,Urine 81 /HPF (0-6)
[2019-09-12 19:57] LABS: Barbiturates Screen,Urine Negative (Negative); Benzodiazepines Screen,Urine Negative (Negative); Cannabinoid Screen,Urine Negative (Negative); Opiate Screen,Urine Negative (Negative); Phencyclidine Screen,Urine Negative (Negative)
[2019-09-12] MEDS ORDERED: hydrALAZINE 20 MG/1 ML VIAL IV STA (20:43)
[2019-09-12] MEDS ORDERED: ONDANSETRON 4 MG/2 ML VIAL IV PRN (21:09)
[2019-09-12] MEDS ORDERED: ACETAMINOPHEN 325 MG TABLET PO PRN (21:09)
[2019-09-12] MEDS ORDERED: DEXTROSE 50% 25 GM/50 ML VIAL IV PRN (21:54)
[2019-09-12] MEDS ORDERED: GLUCAGON 1 MG VIAL IM PRN (21:54)
[2019-09-12] MEDS ORDERED: INFLUENZA VIRUS VACCINE 0.5 ML SYRINGE IM ONE (23:19)
[2019-09-12] MEDS: cefTRIAXone 1,000 MG in SYRINGE 1 EACH IV SCH (23:30)
[2019-09-12] MEDS: INSULIN REGULAR 100 UNIT/ML SUBCUT SCH (23:40)
[2019-09-13 07:21] LABS: Basophils % 0.7 % (0.0-0.8); Eosinophils # 0.2 10*3/uL (0.0-0.87); Eosinophils % 2.9 % (0.00-10.9); Hemoglobin 12.9 GM/DL (14.0-18.0); Immature Granulocytes % 0.5 %; Immature Granulocytes Absolute 0.03 #; Lymphocytes # 1.8 10*3/uL (1.4-4.0); Lymphocytes % 30.3 % (21.2-54.2); Mean Corpuscular HGB Conc 32.3 GM/DL (32-36); Mean Corpuscular Volume 89.7 FL (87-102); Mean Platelet Volume 13.2 FL (9.6-12.0); Monocytes % 9.7 % (1.7-12.7); Neutrophils % 55.9 % (38.7-73.9); Platelet Count 109 T/CUMM (130-400); Red Blood Count 4.46 MC/CUMM (3.8-5.5); Red Cell Distribution Width 15.3 % (9.3-17.3); White Blood Count 5.9 T/CUMM (4-12)
[2019-09-13 07:44] LABS: Albumin 2.9 G/DL (3.4-5.0); Bilirubin,Total 1.9 MG/DL (0.2-1.0); Calcium 8.4 MG/DL (8.5-10.1); Osmolality,Calculated 275.7 MOS/KG (273-304); Total Protein 6.8 G/DL (6.4-8.3)
[2019-09-13 07:46] LABS: Risk Ratio 2.33; VLDL CHOLESTEROL 32.4 MG/DL
[2019-09-13] MEDS: INSULIN REGULAR 100 UNIT/ML SUBCUT SCH ×4 (08:32→21:21)
[2019-09-13] MEDS ORDERED: FUROSEMIDE 40 MG/4 ML VIAL IV ONE (09:07)
[2019-09-13] MEDS: PANTOPRAZOLE 40 MG TABLET PO SCH (09:37)
[2019-09-13] MEDS: ENOXAPARIN 40 MG/0.4 ML SYRINGE SUBCUT SCH (09:37)
[2019-09-13] MEDS ORDERED: MAGNESIUM SULF RIDER 2 GM in PREMIX 1 EACH IV ONE (14:45)
[2019-09-13] MEDS: FUROSEMIDE 40 MG/4 ML VIAL IV SCH (16:05)
[2019-09-13] MEDS: cefTRIAXone 1,000 MG in SYRINGE 1 EACH IV SCH (21:22)
[2019-09-14 05:09] LABS: Basophils % 0.6 % (0.0-0.8); Eosinophils # 0.3 10*3/uL (0.0-0.87); Hemoglobin 13.4 GM/DL (14.0-18.0); Immature Granulocytes % 0.2 %; Immature Granulocytes Absolute 0.01 #; Lymphocytes # 1.8 10*3/uL (1.4-4.0); Lymphocytes % 28.9 % (21.2-54.2); Mean Corpuscular HGB Conc 31.9 GM/DL (32-36); Mean Corpuscular Volume 89.4 FL (87-102); Monocytes % 9.8 % (1.7-12.7); Neutrophils % 56.5 % (38.7-73.9); Platelet Count 118 T/CUMM (130-400); Red Cell Distribution Width 15.2 % (9.3-17.3); White Blood Count 6.2 T/CUMM (4-12)
[2019-09-14 05:43] LABS: Calcium 9.1 MG/DL (8.5-10.1); Osmolality,Calculated 280.4 MOS/KG (273-304)
[2019-09-14] MEDS: INSULIN REGULAR 100 UNIT/ML SUBCUT SCH ×3 (09:03→15:39)
[2019-09-14] MEDS: ENOXAPARIN 40 MG/0.4 ML SYRINGE SUBCUT SCH (09:56)
[2019-09-14] MEDS: PANTOPRAZOLE 40 MG TABLET PO SCH (09:57)
[2019-09-14] MEDS: FUROSEMIDE 40 MG/4 ML VIAL IV SCH ×2 (09:57→15:39)
[2019-09-14 12:55] VITALS: BP 149/75
== END 2019-09-14 17:37 | disposition home or self-care (01) ==
LOC: N.ED 17:31 → N.EDINP 17:31 → SUATTDRO 21:09 → N.5E 21:26
PROVIDERS: ADMIT Family Medicine; ATTEND Internal Medicine

== ENCOUNTER 2020-07-08 14:22 | Observation (INO) ==
[2020-07-08 14:52] LABS: Basophils # 0.1 10*3/uL (0.0-0.2); Basophils % 0.4 % (0.0-0.8); Eosinophils # 0.4 10*3/uL (0.0-0.87); Eosinophils % 3.1 % (0.00-10.9); Hematocrit 40.9 VOL% (42.0-52.0); Hemoglobin 13.7 GM/DL (14.0-18.0); Immature Granulocytes % 0.3 %; Immature Granulocytes Absolute 0.04 #; Lymphocytes # 1.9 10*3/uL (1.4-4.0); Lymphocytes % 13.5 % (21.2-54.2); Mean Corpuscular HGB Conc 33.5 GM/DL (32-36); Mean Corpuscular Volume 85.4 FL (87-102); Mean Platelet Volume 12.2 FL (9.6-12.0); Monocytes % 8.7 % (1.7-12.7); Platelet Count 156 T/CUMM (130-400); Red Blood Count 4.79 MC/CUMM (3.8-5.5); Red Cell Distribution Width 14.1 % (9.3-17.3); White Blood Count 13.8 T/CUMM (4-12)
[2020-07-08 15:15] LABS: Albumin 3.7 G/DL (3.4-5.0); Bilirubin,Total 1.1 MG/DL (0.2-1.0); Calcium 8.6 MG/DL (8.5-10.1); Osmolality,Calculated 288.1 MOS/KG (273-304)
[2020-07-08] MEDS ORDERED: SODIUM CHLORIDE 0.9% 1,000 ML IV STA (16:59)
[2020-07-08] MEDS ORDERED: LEVOFLOXACIN INJ 500 MG in PREMIX 1 EACH IV STA (17:00)
[2020-07-08 20:28] LABS: Apearance,Urine CLEAR (Clear); Bacteria,Urine Occasional /HPF (Few); Bilirubin,Urine Negative (Negative); Blood, Urine Moderate mg/dL (Negative); Glucose,Urine (UA) Negative (Negative); Hyaline Casts,Urine 6 /LPF (0-3); Ketones,Urine 5 mg/dL (Negative); Mucus,Urine Occasional /LPF (Occasional); Nitrite,Urine Negative (Negative); Protein,Urine Negative; RBC,Urine 3 /HPF (0-4); Urine Color Yellow (Yellow); Urine Specific Gravity 1.013 (1.001-1.035); Urine Urobilinogen < 2.0 EU/DL (0.2-1.0); WBC,Urine 5 /HPF (0-6)
[2020-07-08] MEDS ORDERED: ACETAMINOPHEN 325 MG TABLET PO PRN (21:43)
[2020-07-08] MEDS ORDERED: GLUCAGON 1 MG VIAL IM PRN (21:43)
[2020-07-08] MEDS ORDERED: DEXTROSE 50% 25 GM/50 ML VIAL IV PRN ×2 (21:43→22:01)
[2020-07-08] MEDS ORDERED: ONDANSETRON 4 MG/2 ML VIAL IV PRN (21:43)
[2020-07-08] MEDS ORDERED: NITROGLYCERIN SL 0.4 MG TABLET SL PRN (22:05)
[2020-07-08] MEDS ORDERED: MEROPENEM 500 MG in SODIUM CHLORIDE 0.9% 100 ML IV SCH (22:30)
[2020-07-08] MEDS ORDERED: INSULIN GLARGINE 100 UNIT/ML SUBCUT SCH (23:00)
[2020-07-08] MEDS: SODIUM CHLORIDE 0.9% 1,000 ML IV SCH (23:40)
[2020-07-09] MEDS: carvediloL 3.125 MG TABLET PO SCH ×3 (00:25→17:04)
[2020-07-09 01:29] LABS: Basophils % 0.4 % (0.0-0.8); Eosinophils # 0.4 10*3/uL (0.0-0.87); Hematocrit 38.9 VOL% (42.0-52.0); Hemoglobin 12.8 GM/DL (14.0-18.0); Immature Granulocytes % 1.3 %; Immature Granulocytes Absolute 0.13 #; Lymphocytes # 1.4 10*3/uL (1.4-4.0); Lymphocytes % 14.4 % (21.2-54.2); Mean Corpuscular HGB Conc 32.9 GM/DL (32-36); Mean Corpuscular Volume 86.1 FL (87-102); Mean Platelet Volume 12.2 FL (9.6-12.0); Monocytes % 7.5 % (1.7-12.7); Neutrophils % 72.4 % (38.7-73.9); Platelet Count 140 T/CUMM (130-400); Red Blood Count 4.52 MC/CUMM (3.8-5.5); Red Cell Distribution Width 14.1 % (9.3-17.3)
[2020-07-09 01:38] LABS: Calcium 8.6 MG/DL (8.5-10.1); Osmolality,Calculated 288.8 MOS/KG (273-304)
[2020-07-09] MEDS ORDERED: POTASSIUM CHLORIDE 20 MEQ TABLET PO ONE (08:03)
[2020-07-09] MEDS: ENOXAPARIN 30 MG/0.3 ML SYRINGE SUBCUT SCH (08:29)
[2020-07-09] MEDS: LEVOTHYROXINE 112 MCG TABLET PO SCH (08:29)
[2020-07-09] MEDS: ISOSORBIDE MONONITRATE 60 MG TABLET PO SCH (08:29)
[2020-07-09] MEDS: LORazepam 1 MG TABLET PO SCH ×4 (08:29→21:53)
[2020-07-09] MEDS: SERTRALINE 100 MG TABLET PO SCH ×2 (08:30→21:53)
[2020-07-09] MEDS: FERROUS SULFATE 325 MG TABLET PO SCH (08:30)
[2020-07-09] MEDS: ASPIRIN EC 81 MG TABLET PO SCH (08:30)
[2020-07-09] MEDS: TAMSULOSIN 0.4 MG CAPSULE PO SCH ×2 (08:30→21:53)
[2020-07-09] MEDS: INSULIN LISPRO 100 UNIT/ML SUBCUT SCH ×4 (08:31→21:50)
[2020-07-09] MEDS ORDERED: metFORMIN 500 MG TABLET PO SCH (09:00)
[2020-07-09] MEDS: SODIUM CHLORIDE 0.9% 1,000 ML IV SCH ×2 (11:10→18:49)
[2020-07-09] MEDS ORDERED: DEXTROSE 50% 25 GM/50 ML VIAL IV PRN (11:11)
[2020-07-09] MEDS ORDERED: GLUCAGON 1 MG VIAL IM PRN (11:11)
[2020-07-09] MEDS ORDERED: ROSUVASTATIN 20 MG TABLET PO SCH (21:00)
[2020-07-09] MEDS ORDERED: TAMSULOSIN 0.4 MG CAPSULE PO SCH (21:00)
[2020-07-10] MEDS: LEVOTHYROXINE 112 MCG TABLET PO SCH (06:04)
[2020-07-10] MEDS: ASPIRIN EC 81 MG TABLET PO SCH (08:38)
[2020-07-10] MEDS: ENOXAPARIN 30 MG/0.3 ML SYRINGE SUBCUT SCH (08:38)
[2020-07-10] MEDS: LORazepam 1 MG TABLET PO SCH (08:39)
[2020-07-10] MEDS: ISOSORBIDE MONONITRATE 60 MG TABLET PO SCH (08:39)
[2020-07-10] MEDS: SERTRALINE 100 MG TABLET PO SCH (08:39)
[2020-07-10] MEDS: FERROUS SULFATE 325 MG TABLET PO SCH (08:39)
[2020-07-10] MEDS: TAMSULOSIN 0.4 MG CAPSULE PO SCH (08:39)
[2020-07-10] MEDS: carvediloL 3.125 MG TABLET PO SCH (08:39)
[2020-07-10] MEDS: SODIUM CHLORIDE 0.9% 1,000 ML IV SCH (08:43)
[2020-07-10] MEDS: INSULIN LISPRO 100 UNIT/ML SUBCUT SCH (08:44)
[2020-07-10 08:46] LABS: Hematocrit 39.2 VOL% (42.0-52.0); Hemoglobin 12.9 GM/DL (14.0-18.0)
[2020-07-10 09:59] LABS: Calcium 8.8 MG/DL (8.5-10.1); Osmolality,Calculated 294.3 MOS/KG (273-304)
[2020-07-10 11:33] VITALS: BP 122/63
[2020-07-14 12:40] LABS: CDT Result Negative (Negative); CDT Specimen Source STOOL
== END 2020-07-10 12:56 | disposition home health service (06) ==
LOC: N.ED 14:22 → INTOOBSV 21:43 → N.EDINP 21:43 → N.TELES 07-09 00:08
PROVIDERS: ADMIT Internal Medicine; ATTEND Internal Medicine

== ENCOUNTER 2021-06-29 15:26 | Observation (INO) ==
[2021-06-29 18:30] LABS: Basophils # 0.1 10*3/uL (0.0-0.2); Basophils % 0.7 % (0.0-0.8); Eosinophils # 0.2 10*3/uL (0.0-0.87); Eosinophils % 2.5 % (0.00-10.9); Hematocrit 44.4 VOL% (42.0-52.0); Hemoglobin 14.2 GM/DL (14.0-18.0); Immature Granulocytes % 0.4 %; Immature Granulocytes Absolute 0.03 #; Lymphocytes # 1.7 10*3/uL (1.4-4.0); Lymphocytes % 25.1 % (21.2-54.2); Mean Corpuscular Volume 87.4 FL (87-102); Mean Platelet Volume 11.5 FL (9.6-12.0); Monocytes % 8.2 % (1.7-12.7); Neutrophils % 63.1 % (38.7-73.9); Platelet Count 120 T/CUMM (130-400); Red Blood Count 5.08 MC/CUMM (3.8-5.5); Red Cell Distribution Width 14.6 % (9.3-17.3); White Blood Count 6.7 T/CUMM (4-12)
[2021-06-29] MEDS ORDERED: SODIUM CHLORIDE 0.9% 1,000 ML IV STA (18:38)
[2021-06-29 19:00] LABS: Alanine Aminotransferase 21 U/L (16-61); Albumin 3.7 G/DL (3.4-5.0); Alkaline Phosphatase 71 U/L (45-117); Aspartate Amino Transferase 25 U/L (0-37); Blood Urea Nitrogen 16 MG/DL (7-18); Calcium 9.3 MG/DL (8.5-10.1); Carbon Dioxide 28 MMOL/L (21-32); Estimated Glom Filtration Rate 55 ML/MIN; Glucose 113 MG/DL (74-106); Osmolality,Calculated 267.4 MOS/KG (273-304); Potassium 5.2 MMOL/L (3.5-5.1); Sodium 133 MMOL/L (136-145); Total Protein 7.7 G/DL (6.4-8.2)
[2021-06-29 19:24] LABS: Ferritin 72.1 ng/ml (26-388)
[2021-06-29 20:48] LABS: Bilirubin,Urine Negative (Negative); Blood, Urine Large mg/dL (Negative); Glucose,Urine (UA) Negative (Negative); Hyaline Casts,Urine 22 /LPF (0-3); Ketones,Urine Negative (Negative); Mucus,Urine Occasional /LPF (Occasional); Nitrite,Urine Negative (Negative); Protein,Urine 30 MG/DL; RBC,Urine 49 /HPF (0-4); Squamous Epithelial Cell,Urine Few /HPF (0-10); Urine Appearance CLOUDY (Clear); Urine Color Amber (Yellow); Urine Specific Gravity 1.021 (1.001-1.035); Urine Urobilinogen < 2.0 EU/DL (0.2-1.0)
[2021-06-29] MEDS ORDERED: ACETAMINOPHEN 325 MG TABLET PO PRN (23:33)
[2021-06-29] MEDS ORDERED: GLUCAGON 1 MG VIAL IM PRN (23:33)
[2021-06-29] MEDS ORDERED: ONDANSETRON 4 MG/2 ML VIAL IV PRN (23:33)
[2021-06-29] MEDS ORDERED: DEXTROSE 50% 25 GM/50 ML VIAL IV PRN (23:33)
[2021-06-30] MEDS: ENOXAPARIN 40 MG/0.4 ML SYRINGE SUBCUT SCH (01:12)
[2021-06-30] MEDS: cefTRIAXone 1,000 MG in SODIUM CHLORIDE 0.9% 100 ML IV SCH (01:12)
[2021-06-30] MEDS: hydrALAZINE 20 MG/1 ML VIAL IV PRN ×2 (01:13→16:07)
[2021-06-30 06:59] LABS: Basophils % 0.5 % (0.0-0.8); Eosinophils # 0.2 10*3/uL (0.0-0.87); Eosinophils % 2.1 % (0.00-10.9); Hematocrit 45.4 VOL% (42.0-52.0); Hemoglobin 14.7 GM/DL (14.0-18.0); Immature Granulocytes % 0.4 %; Immature Granulocytes Absolute 0.03 #; Lymphocytes # 2.1 10*3/uL (1.4-4.0); Lymphocytes % 24.9 % (21.2-54.2); Mean Corpuscular HGB Conc 32.4 GM/DL (32-36); Mean Platelet Volume 11.3 FL (9.6-12.0); Monocytes % 8.3 % (1.7-12.7); Neutrophils % 63.8 % (38.7-73.9); Platelet Count 112 T/CUMM (130-400); Red Blood Count 5.28 MC/CUMM (3.8-5.5); Red Cell Distribution Width 14.6 % (9.3-17.3); White Blood Count 8.5 T/CUMM (4-12)
[2021-06-30 07:26] LABS: Albumin 3.5 G/DL (3.4-5.0); Bilirubin,Total 1.3 MG/DL (0.20-1.00); Osmolality,Calculated 270.1 MOS/KG (273-304); Potassium 4.2 MMOL/L (3.5-5.1); Total Protein 7.6 G/DL (6.4-8.2)
[2021-06-30] MEDS: ALBUTEROL/IPRATROPIUM 3 ML NEB RESP TX SCH ×3 (07:59→19:30)
[2021-06-30] MEDS: INSULIN REGULAR 100 UNIT/ML SUBCUT SCH ×4 (09:00→20:56)
[2021-06-30] MEDS: PANTOPRAZOLE 40 MG TABLET PO SCH (09:23)
[2021-06-30] MEDS: LORazepam 1 MG TABLET PO SCH ×3 (13:59→20:51)
[2021-06-30] MEDS: carvediloL 3.125 MG TABLET PO SCH (20:51)
[2021-06-30] MEDS: FUROSEMIDE 20 MG TABLET PO SCH (20:51)
[2021-06-30] MEDS: SERTRALINE 100 MG TABLET PO SCH (20:51)
[2021-06-30] MEDS ORDERED: ROSUVASTATIN 20 MG TABLET PO SCH (21:00)
[2021-07-01] MEDS: ENOXAPARIN 40 MG/0.4 ML SYRINGE SUBCUT SCH (00:22)
[2021-07-01] MEDS: cefTRIAXone 1,000 MG in SODIUM CHLORIDE 0.9% 100 ML IV SCH (00:22)
[2021-07-01] MEDS: ALBUTEROL/IPRATROPIUM 3 ML NEB RESP TX SCH ×2 (00:57→07:12)
[2021-07-01 05:49] LABS: Basophils % 0.5 % (0.0-0.8); Eosinophils # 0.2 10*3/uL (0.0-0.87); Eosinophils % 2.4 % (0.00-10.9); Hematocrit 43.6 VOL% (42.0-52.0); Hemoglobin 14.3 GM/DL (14.0-18.0); Immature Granulocytes % 0.5 %; Immature Granulocytes Absolute 0.03 #; Lymphocytes # 1.8 10*3/uL (1.4-4.0); Lymphocytes % 28.2 % (21.2-54.2); Mean Corpuscular HGB Conc 32.8 GM/DL (32-36); Mean Corpuscular Volume 86.3 FL (87-102); Mean Platelet Volume 11.5 FL (9.6-12.0); Monocytes % 7.9 % (1.7-12.7); Neutrophils % 60.5 % (38.7-73.9); Platelet Count 110 T/CUMM (130-400); Red Blood Count 5.05 MC/CUMM (3.8-5.5); Red Cell Distribution Width 14.5 % (9.3-17.3); White Blood Count 6.4 T/CUMM (4-12)
[2021-07-01 06:03] LABS: Calcium 8.9 MG/DL (8.5-10.1); Osmolality,Calculated 265.5 MOS/KG (273-304); Potassium 3.4 MMOL/L (3.5-5.1)
[2021-07-01] MEDS ORDERED: LEVOTHYROXINE 112 MCG TABLET PO SCH (07:00)
[2021-07-01] MEDS: INSULIN REGULAR 100 UNIT/ML SUBCUT SCH ×2 (08:20→12:32)
[2021-07-01 08:22] VITALS: BP 154/87
[2021-07-01] MEDS ORDERED: ASPIRIN EC 81 MG TABLET PO SCH (09:00)
[2021-07-01] MEDS ORDERED: ISOSORBIDE MONONITRATE 60 MG TABLET PO SCH (09:00)
[2021-07-01] MEDS: SERTRALINE 100 MG TABLET PO SCH (09:03)
[2021-07-01] MEDS: LORazepam 1 MG TABLET PO SCH (09:03)
[2021-07-01] MEDS: PANTOPRAZOLE 40 MG TABLET PO SCH (09:03)
[2021-07-01] MEDS: carvediloL 3.125 MG TABLET PO SCH (09:04)
[2021-07-01] MEDS: FUROSEMIDE 20 MG TABLET PO SCH (09:04)
[2021-07-01] MEDS ORDERED: POTASSIUM CHLORIDE 20 MEQ TABLET PO ONE (10:39)
== END 2021-07-01 12:26 | disposition home or self-care (01) ==
LOC: EDBD → EDUNIT# → N.ED 15:26 → N.EDINP 15:26 → SUATTDRO 23:33 → N.EDINP 06-30 01:32 → N.TELEN 06-30 02:24
PROVIDERS: ADMIT Internal Medicine; ATTEND Internal Medicine

== ENCOUNTER 2022-05-06 07:45 | Inpatient (IN) ==
[2022-05-06] MEDS ORDERED: HYDROmorphone 1 MG/1 ML SYRINGE IV STA ×2 (08:00→09:30)
[2022-05-06] MEDS ORDERED: ONDANSETRON 4 MG/2 ML VIAL IV STA ×2 (08:00→09:31)
[2022-05-06 08:46] LABS: Basophils % 0.3 % (0.0-0.8); Eosinophils # 0.2 10*3/uL (0.0-0.87); Eosinophils % 2.2 % (0.00-10.9); Hematocrit 36.7 VOL% (42.0-52.0); Hemoglobin 11.9 GM/DL (14.0-18.0); Immature Granulocytes % 0.4 %; Immature Granulocytes Absolute 0.04 #; Lymphocytes % 11.1 % (21.2-54.2); Mean Corpuscular HGB Conc 32.4 GM/DL (32-36); Mean Corpuscular Volume 88.4 FL (87-102); Mean Platelet Volume 12.9 FL (9.6-12.0); Monocytes # 0.5 10*3/uL (0.11-0.8); Monocytes % 5.4 % (1.7-12.7); Neutrophils % 80.6 % (38.7-73.9); Platelet Count 100 T/CUMM (130-400); Red Blood Count 4.15 MC/CUMM (3.8-5.5); Red Cell Distribution Width 14.2 % (9.3-17.3); White Blood Count 9.2 T/CUMM (4-12)
[2022-05-06 08:48] LABS: Bilirubin,Urine Negative (Negative); Blood, Urine Trace mg/dL (Negative); Glucose,Urine (UA) Negative (Negative); Hyaline Casts,Urine 14 /LPF (0-3); Ketones,Urine Negative (Negative); Mucus,Urine Occasional /LPF (Occasional); Nitrite,Urine Negative (Negative); Protein,Urine Trace mg/dL (Negative); RBC,Urine 2 /HPF (0-4); Squamous Epithelial Cell,Urine Occasional /HPF (0-10); Urine Appearance Clear (Clear); Urine Color Yellow (Yellow); Urine Urobilinogen 0.2 eU/dL (<2.0); Urine pH 5.5 (4.5-8.0)
[2022-05-06 08:49] LABS: PT Patient Result 11.4 SECS (10.5-12.0); Partial Thromboplastin Time 23.9 SECS (23.8-32.1)
[2022-05-06 09:03] LABS: Platelet Estimate Decreased
[2022-05-06 09:05] LABS: Alanine Aminotransferase 39 U/L (16-61); Albumin 3.4 G/DL (3.4-5.0); Alkaline Phosphatase 75 U/L (45-117); Aspartate Amino Transferase 40 U/L (0-37); Blood Urea Nitrogen 33 MG/DL (7-18); Calcium 8.6 MG/DL (8.5-10.1); Carbon Dioxide 27 MMOL/L (21-32); Chloride 104 MMOL/L (98-107); Glucose 184 MG/DL (74-106); Potassium 4.1 MMOL/L (3.5-5.1); Sodium 136 MMOL/L (136-145); Total Protein 7.1 G/DL (6.4-8.2)
[2022-05-06] MEDS ORDERED: ONDANSETRON 4 MG/2 ML VIAL IV PRN (10:04)
[2022-05-06] MEDS ORDERED: hydrALAZINE 20 MG/1 ML VIAL IV PRN (10:04)
[2022-05-06] MEDS ORDERED: ALUMINUM/MAGNES/SIMETH MAX STR 30 ML UDCUP PO PRN (10:04)
[2022-05-06] MEDS ORDERED: SIMETHICONE CHEW 125 MG TABLET PO PRN (10:04)
[2022-05-06] MEDS ORDERED: DOCUSATE SODIUM 100 MG CAPSULE PO PRN (10:04)
[2022-05-06] MEDS ORDERED: ACETAMINOPHEN 325 MG TABLET PO PRN (10:04)
[2022-05-06] MEDS ORDERED: ceFAZolin 2,000 MG/50 ML DUPLEX IV ONE (10:04)
[2022-05-06] MEDS ORDERED: DEXTROSE 10% 250 ML BAG IV PRN (10:04)
[2022-05-06] MEDS ORDERED: GLUCAGON 1 MG VIAL IM PRN (10:04)
[2022-05-06] MEDS ORDERED: NITROGLYCERIN SL 0.4 MG TABLET SL PRN (10:11)
[2022-05-06 10:52] LABS: Thyroid Stimulating Hormone 1.53 uIU/ml (0.358-3.74)
[2022-05-06] MEDS: LACTATED RINGERS 1,000 ML IV SCH ×2 (11:25→21:40)
[2022-05-06] MEDS: INSULIN LISPRO 100 UNIT/ML SUBCUT SCH ×3 (11:30→21:55)
[2022-05-06] MEDS ORDERED: fentaNYL 100 MCG/2 ML VIAL ONE (12:52)
[2022-05-06] MEDS ORDERED: LIDOCAINE 2% 5 ML VIAL ONE (12:52)
[2022-05-06] MEDS ORDERED: propofoL 200 MG/20 ML VIAL IV ONE (12:52)
[2022-05-06] MEDS ORDERED: ROPIVACAINE 0.5% 30 ML VIAL ONE (13:00)
[2022-05-06] MEDS ORDERED: SUCCINYLCHOLINE 200 MG/10 ML VIAL ONE (13:00)
[2022-05-06] MEDS ORDERED: LIDOCAINE 1% 5 ML VIAL ONE (13:00)
[2022-05-06] MEDS ORDERED: DEXAMETHASONE 4 MG/1 ML VIAL ONE (13:01)
[2022-05-06] MEDS ORDERED: ceFAZolin 1,000 MG VIAL ONE (14:09)
[2022-05-06] MEDS ORDERED: ePHEDrine 50 MG/ML VIAL ONE (14:11)
[2022-05-06] MEDS ORDERED: PHENYLEPHRINE 10 MG/1 ML VIAL IV ONE (14:17)
[2022-05-06] MEDS ORDERED: CALCIUM CHLORIDE 1,000 MG/10 ML VIAL IV ONE (14:39)
[2022-05-06] MEDS ORDERED: SEVOFLURANE 1 UNIT/15 MINUTE INH ONE ×6 (14:44→15:33)
[2022-05-06] MEDS ORDERED: SUGAMMADEX 200 MG/2 ML VIAL IV ONE (15:05)
[2022-05-06] MEDS ORDERED: BACITRACIN OINT 0.9 GM PACK TOP ONE (15:19)
[2022-05-06] MEDS: cefTRIAXone 1,000 MG in SODIUM CHLORIDE 0.9% 100 ML IV SCH (17:30)
[2022-05-06] MEDS ORDERED: carvediloL 3.125 MG TABLET PO SCH (21:00)
[2022-05-06] MEDS: SERTRALINE 100 MG TABLET PO SCH (21:23)
[2022-05-06] MEDS: ROSUVASTATIN 20 MG TABLET PO SCH (21:23)
[2022-05-07 04:41] LABS: Basophils % 0.3 % (0.0-0.8); Eosinophils % 0.1 % (0.00-10.9); Hematocrit 28.8 VOL% (42.0-52.0); Hemoglobin 9.4 GM/DL (14.0-18.0); Immature Granulocytes % 0.5 %; Immature Granulocytes Absolute 0.04 #; Lymphocytes # 0.9 10*3/uL (1.4-4.0); Lymphocytes % 11.8 % (21.2-54.2); Mean Corpuscular HGB Conc 32.6 GM/DL (32-36); Mean Corpuscular Volume 88.3 FL (87-102); Mean Platelet Volume 13.5 FL (9.6-12.0); Monocytes # 0.7 10*3/uL (0.11-0.8); Monocytes % 9.2 % (1.7-12.7); Neutrophils % 78.1 % (38.7-73.9); Platelet Count 80 T/CUMM (130-400); Red Blood Count 3.26 MC/CUMM (3.8-5.5); Red Cell Distribution Width 14.4 % (9.3-17.3)
[2022-05-07 04:58] LABS: Calcium 8.4 MG/DL (8.5-10.1); Osmolality,Calculated 283.1 MOS/KG (273-304); Potassium 4.9 MMOL/L (3.5-5.1)
[2022-05-07 05:01] LABS: Albumin 2.7 G/DL (3.4-5.0); Bilirubin,Total 0.6 MG/DL (0.20-1.00); Calcium 8.4 MG/DL (8.5-10.1); Potassium 4.9 MMOL/L (3.5-5.1); Risk Ratio 1.77; Total Protein 6.1 G/DL (6.4-8.2); VLDL Cholesterol 30.6 MG/DL
[2022-05-07 05:07] LABS: Platelet Estimate Decreased
[2022-05-07 05:08] LABS: Hypochromia Slight; Microcytosis Slight
[2022-05-07] MEDS: LEVOTHYROXINE 112 MCG TABLET PO SCH (05:49)
[2022-05-07] MEDS ORDERED: MORPHINE 2 MG/1 ML SYRINGE IV PRN (07:03)
[2022-05-07] MEDS ORDERED: MAGNESIUM HYDROXIDE SUSP 30 ML UDCUP PO PRN (07:06)
[2022-05-07 07:54] LABS: % Iron Saturation 7.8 % (18-50); Ferritin 66.4 ng/mL (26-388)
[2022-05-07 08:06] LABS: Folate 15.96 NG/ML (5.38-24.0)
[2022-05-07] MEDS: OXYBUTYNIN 5 MG TABLET PO SCH (08:10)
[2022-05-07] MEDS: PANTOPRAZOLE 40 MG TABLET PO SCH (08:10)
[2022-05-07] MEDS: SODIUM CHLORIDE 0.9% 1,000 ML IV SCH ×2 (08:10→21:05)
[2022-05-07] MEDS: SERTRALINE 100 MG TABLET PO SCH ×2 (08:10→20:32)
[2022-05-07] MEDS: INSULIN LISPRO 100 UNIT/ML SUBCUT SCH ×4 (08:10→21:02)
[2022-05-07] MEDS: TAMSULOSIN 0.4 MG CAPSULE PO SCH (08:10)
[2022-05-07] MEDS: carvediloL 3.125 MG TABLET PO SCH ×2 (08:10→16:51)
[2022-05-07] MEDS: ISOSORBIDE MONONITRATE 60 MG TABLET PO SCH (08:10)
[2022-05-07] MEDS: CHOLECALCIFEROL 1,000 UNIT TABLET PO SCH (09:55)
[2022-05-07] MEDS: ENOXAPARIN 30 MG/0.3 ML SYRINGE SUBCUT SCH (09:55)
[2022-05-07] MEDS: cefTRIAXone 1,000 MG in SODIUM CHLORIDE 0.9% 100 ML IV SCH (14:15)
[2022-05-07] MEDS: FERROUS SULFATE 325 MG TABLET PO SCH (14:15)
[2022-05-07] MEDS: LACTATED RINGERS 1,000 ML IV SCH (16:19)
[2022-05-07] MEDS: ROSUVASTATIN 20 MG TABLET PO SCH (20:31)
[2022-05-08 05:41] LABS: Basophils % 0.2 % (0.0-0.8); Eosinophils # 0.1 10*3/uL (0.0-0.87); Eosinophils % 0.9 % (0.00-10.9); Hematocrit 23.5 VOL% (42.0-52.0); Hemoglobin 7.4 GM/DL (14.0-18.0); Immature Granulocytes % 0.7 %; Immature Granulocytes Absolute 0.04 #; Lymphocytes # 0.8 10*3/uL (1.4-4.0); Lymphocytes % 14.4 % (21.2-54.2); Mean Corpuscular HGB Conc 31.5 GM/DL (32-36); Mean Platelet Volume 12.8 FL (9.6-12.0); Monocytes # 0.6 10*3/uL (0.11-0.8); Monocytes % 9.6 % (1.7-12.7); Neutrophils % 74.2 % (38.7-73.9); Platelet Count 63 T/CUMM (130-400); Red Blood Count 2.61 MC/CUMM (3.8-5.5); Red Cell Distribution Width 14.6 % (9.3-17.3); White Blood Count 5.8 T/CUMM (4-12)
[2022-05-08] MEDS: LEVOTHYROXINE 112 MCG TABLET PO SCH (05:49)
[2022-05-08 05:57] LABS: Calcium 8.3 MG/DL (8.5-10.1); Osmolality,Calculated 287.5 MOS/KG (273-304); Potassium 4.9 MMOL/L (3.5-5.1)
[2022-05-08 06:08] LABS: Platelet Estimate Decreased
[2022-05-08] MEDS ORDERED: SODIUM CHLORIDE 0.9% 1,000 ML IV PRN (07:40)
[2022-05-08] MEDS ORDERED: ASPIRIN EC 81 MG TABLET PO SCH (09:00)
[2022-05-08] MEDS: FERROUS SULFATE 325 MG TABLET PO SCH (09:34)
[2022-05-08] MEDS: TAMSULOSIN 0.4 MG CAPSULE PO SCH (09:34)
[2022-05-08] MEDS: ISOSORBIDE MONONITRATE 60 MG TABLET PO SCH (09:34)
[2022-05-08] MEDS: OXYBUTYNIN 5 MG TABLET PO SCH (09:34)
[2022-05-08] MEDS: SERTRALINE 100 MG TABLET PO SCH ×2 (09:34→21:02)
[2022-05-08] MEDS: ENOXAPARIN 30 MG/0.3 ML SYRINGE SUBCUT SCH (09:35)
[2022-05-08] MEDS: CHOLECALCIFEROL 1,000 UNIT TABLET PO SCH (09:35)
[2022-05-08] MEDS: PANTOPRAZOLE 40 MG TABLET PO SCH (09:35)
[2022-05-08] MEDS: INSULIN LISPRO 100 UNIT/ML SUBCUT SCH ×4 (10:15→21:03)
[2022-05-08] MEDS: carvediloL 3.125 MG TABLET PO SCH ×2 (10:15→16:39)
[2022-05-08] MEDS ORDERED: FONDAPARINUX 2.5 MG/0.5 ML SYRINGE SUBCUT SCH (11:00)
[2022-05-08] MEDS: SODIUM CHLORIDE 0.9% 1,000 ML IV SCH (12:35)
[2022-05-08] MEDS: cefTRIAXone 1,000 MG in SODIUM CHLORIDE 0.9% 100 ML IV SCH (12:36)
[2022-05-08] MEDS ORDERED: CALCIUM CARBONATE CHEW 500 MG TABLET PO PRN (18:36)
[2022-05-08] MEDS: ROSUVASTATIN 20 MG TABLET PO SCH (21:02)
[2022-05-09 05:35] LABS: Basophils % 0.4 % (0.0-0.8); Eosinophils # 0.1 10*3/uL (0.0-0.87); Eosinophils % 1.4 % (0.00-10.9); Hematocrit 21.1 VOL% (42.0-52.0); Hemoglobin 6.7 GM/DL (14.0-18.0); Immature Granulocytes % 0.5 %; Immature Granulocytes Absolute 0.03 #; Lymphocytes # 0.8 10*3/uL (1.4-4.0); Mean Corpuscular HGB Conc 31.8 GM/DL (32-36); Mean Corpuscular Volume 89.4 FL (87-102); Mean Platelet Volume 13.5 FL (9.6-12.0); Monocytes # 0.5 10*3/uL (0.11-0.8); Monocytes % 9.2 % (1.7-12.7); Neutrophils % 73.5 % (38.7-73.9); Platelet Count 63 T/CUMM (130-400); Red Blood Count 2.36 MC/CUMM (3.8-5.5); Red Cell Distribution Width 14.5 % (9.3-17.3); White Blood Count 5.5 T/CUMM (4-12)
[2022-05-09 05:53] LABS: Platelet Estimate Decreased
[2022-05-09 06:00] LABS: Calcium 8.1 MG/DL (8.5-10.1); Osmolality,Calculated 283.5 MOS/KG (273-304); Potassium 4.3 MMOL/L (3.5-5.1)
[2022-05-09] MEDS: LEVOTHYROXINE 112 MCG TABLET PO SCH (06:04)
[2022-05-09] MEDS: SODIUM CHLORIDE 0.9% 1,000 ML IV SCH (06:04)
[2022-05-09] MEDS: INSULIN LISPRO 100 UNIT/ML SUBCUT SCH ×4 (07:08→20:51)
[2022-05-09] MEDS ORDERED: SODIUM CHLORIDE 0.9% 1,000 ML IV PRN ×2 (07:57→09:05)
[2022-05-09] MEDS: FERROUS SULFATE 325 MG TABLET PO SCH (09:12)
[2022-05-09] MEDS: SERTRALINE 100 MG TABLET PO SCH ×2 (09:12→21:57)
[2022-05-09] MEDS: CHOLECALCIFEROL 1,000 UNIT TABLET PO SCH (09:12)
[2022-05-09] MEDS: PANTOPRAZOLE 40 MG TABLET PO SCH (09:12)
[2022-05-09] MEDS: TAMSULOSIN 0.4 MG CAPSULE PO SCH (09:12)
[2022-05-09] MEDS: carvediloL 3.125 MG TABLET PO SCH ×2 (09:12→17:20)
[2022-05-09] MEDS: OXYBUTYNIN 5 MG TABLET PO SCH (09:13)
[2022-05-09] MEDS: ISOSORBIDE MONONITRATE 60 MG TABLET PO SCH (09:13)
[2022-05-09] MEDS: FONDAPARINUX 2.5 MG/0.5 ML SYRINGE SUBCUT SCH (09:13)
[2022-05-09 17:13] LABS: Hematocrit 25.3 VOL% (42.0-52.0); Hemoglobin 8.3 GM/DL (14.0-18.0)
[2022-05-09] MEDS: cefTRIAXone 1,000 MG in SODIUM CHLORIDE 0.9% 100 ML IV SCH (17:21)
[2022-05-09] MEDS ORDERED: BENZOCAINE/MENTHOL LOZENGE 18/BOX PO PRN (21:00)
[2022-05-09] MEDS: ROSUVASTATIN 20 MG TABLET PO SCH (21:57)
[2022-05-10 05:05] LABS: Basophils % 0.1 % (0.0-0.8); Eosinophils # 0.2 10*3/uL (0.0-0.87); Eosinophils % 2.9 % (0.00-10.9); Hematocrit 27.4 VOL% (42.0-52.0); Hemoglobin 8.8 GM/DL (14.0-18.0); Immature Granulocytes % 0.4 %; Immature Granulocytes Absolute 0.03 #; Lymphocytes # 0.7 10*3/uL (1.4-4.0); Lymphocytes % 10.2 % (21.2-54.2); Mean Corpuscular HGB Conc 32.1 GM/DL (32-36); Mean Platelet Volume 12.8 FL (9.6-12.0); Monocytes # 0.5 10*3/uL (0.11-0.8); Monocytes % 7.6 % (1.7-12.7); Neutrophils % 78.8 % (38.7-73.9); Platelet Count 79 T/CUMM (130-400); Red Blood Count 3.08 MC/CUMM (3.8-5.5); Red Cell Distribution Width 15.4 % (9.3-17.3)
[2022-05-10 05:24] LABS: Calcium 8.5 MG/DL (8.5-10.1); Osmolality,Calculated 284.4 MOS/KG (273-304); Potassium 4.1 MMOL/L (3.5-5.1)
[2022-05-10 05:27] LABS: Platelet Estimate Decreased
[2022-05-10] MEDS: LEVOTHYROXINE 112 MCG TABLET PO SCH (05:32)
[2022-05-10] MEDS: INSULIN LISPRO 100 UNIT/ML SUBCUT SCH ×4 (07:03→20:41)
[2022-05-10] MEDS: CHOLECALCIFEROL 1,000 UNIT TABLET PO SCH (08:13)
[2022-05-10] MEDS: PANTOPRAZOLE 40 MG TABLET PO SCH (08:13)
[2022-05-10] MEDS: OXYBUTYNIN 5 MG TABLET PO SCH (08:13)
[2022-05-10] MEDS: ISOSORBIDE MONONITRATE 60 MG TABLET PO SCH (08:13)
[2022-05-10] MEDS: FERROUS SULFATE 325 MG TABLET PO SCH (08:13)
[2022-05-10] MEDS: carvediloL 3.125 MG TABLET PO SCH ×2 (08:13→16:49)
[2022-05-10] MEDS: SERTRALINE 100 MG TABLET PO SCH ×2 (08:13→20:41)
[2022-05-10] MEDS: TAMSULOSIN 0.4 MG CAPSULE PO SCH (08:13)
[2022-05-10] MEDS: FONDAPARINUX 2.5 MG/0.5 ML SYRINGE SUBCUT SCH (08:14)
[2022-05-10] MEDS: cefTRIAXone 1,000 MG in SODIUM CHLORIDE 0.9% 100 ML IV SCH (13:00)
[2022-05-10] MEDS: ROSUVASTATIN 20 MG TABLET PO SCH (20:40)
[2022-05-11 04:52] LABS: Basophils % 0.3 % (0.0-0.8); Eosinophils # 0.1 10*3/uL (0.0-0.87); Eosinophils % 2.1 % (0.00-10.9); Hematocrit 25.4 VOL% (42.0-52.0); Hemoglobin 8.1 GM/DL (14.0-18.0); Immature Granulocytes % 0.6 %; Immature Granulocytes Absolute 0.04 #; Lymphocytes # 0.8 10*3/uL (1.4-4.0); Lymphocytes % 12.9 % (21.2-54.2); Mean Corpuscular HGB Conc 31.9 GM/DL (32-36); Mean Corpuscular Volume 89.1 FL (87-102); Mean Platelet Volume 12.3 FL (9.6-12.0); Monocytes # 0.6 10*3/uL (0.11-0.8); Monocytes % 9.7 % (1.7-12.7); Neutrophils % 74.4 % (38.7-73.9); Platelet Count 87 T/CUMM (130-400); Red Blood Count 2.85 MC/CUMM (3.8-5.5); Red Cell Distribution Width 15.5 % (9.3-17.3); White Blood Count 6.3 T/CUMM (4-12)
[2022-05-11 05:14] LABS: Platelet Estimate Decreased
[2022-05-11] MEDS: LEVOTHYROXINE 112 MCG TABLET PO SCH (06:46)
[2022-05-11] MEDS: carvediloL 3.125 MG TABLET PO SCH (08:17)
[2022-05-11] MEDS: FERROUS SULFATE 325 MG TABLET PO SCH (08:17)
[2022-05-11] MEDS: PANTOPRAZOLE 40 MG TABLET PO SCH (08:17)
[2022-05-11] MEDS: TAMSULOSIN 0.4 MG CAPSULE PO SCH (08:17)
[2022-05-11] MEDS: ISOSORBIDE MONONITRATE 60 MG TABLET PO SCH (08:18)
[2022-05-11] MEDS: FONDAPARINUX 2.5 MG/0.5 ML SYRINGE SUBCUT SCH (08:18)
[2022-05-11] MEDS: OXYBUTYNIN 5 MG TABLET PO SCH (08:18)
[2022-05-11] MEDS: SERTRALINE 100 MG TABLET PO SCH (08:18)
[2022-05-11] MEDS: INSULIN LISPRO 100 UNIT/ML SUBCUT SCH ×2 (08:19→12:01)
[2022-05-11] MEDS: CHOLECALCIFEROL 1,000 UNIT TABLET PO SCH (08:28)
[2022-05-11] MEDS: cefTRIAXone 1,000 MG in SODIUM CHLORIDE 0.9% 100 ML IV SCH (12:01)
[2022-05-11 12:05] VITALS: BP 131/64
== END 2022-05-11 13:30 | DRG 481 ==
LOC: N.ED 07:45 → N.EDINP 10:05 → SUATTDRO 10:05 → N.EDINP 12:50 → N.3E 13:31
PROVIDERS: ADMIT Internal Medicine; ATTEND Internal Medicine

== ENCOUNTER 2022-08-11 02:06 | Inpatient (IN) ==
[2022-08-11] MEDS ORDERED: methylPREDNISolone SOD SUC 125 MG/2 ML VIAL IV STA (02:29)
[2022-08-11] MEDS ORDERED: ALBUTEROL/IPRATROPIUM 3 ML NEB RESP TX ONE (02:29)
[2022-08-11] MEDS ORDERED: ONDANSETRON 4 MG/2 ML VIAL IV STA (02:29)
[2022-08-11] MEDS ORDERED: ALBUTEROL/IPRATROPIUM 3 ML NEB RESP TX STA (02:29)
[2022-08-11 02:51] LABS: Arterial Base Excess iSTAT 0 MMOL/L (-2.5-2.5); Arterial Bicarbonate iSTAT 26.6 MMOL/L (20-26); Arterial O2 Saturation iSTAT 96 % (95-100); Arterial PCO2 iSTAT 49 MM HG (35-48); Arterial PO2 iSTAT 85 MM HG (80-95); Arterial Total CO2 iSTAT 28 MMO/L (23-27); Arterial pH iSTAT 7.343 (7.35-7.45)
[2022-08-11 03:12] LABS: Basophils % 0.2 % (0.0-0.8); Eosinophils # 0.1 10*3/uL (0.0-0.87); Hematocrit 38.4 VOL% (42.0-52.0); Hemoglobin 12.1 GM/DL (14.0-18.0); Immature Granulocytes % 0.3 %; Immature Granulocytes Absolute 0.03 #; Lymphocytes # 0.7 10*3/uL (1.4-4.0); Lymphocytes % 6.9 % (21.2-54.2); Mean Corpuscular HGB Conc 31.5 GM/DL (32-36); Mean Corpuscular Volume 85.9 FL (87-102); Mean Platelet Volume 12.8 FL (9.6-12.0); Monocytes # 0.7 10*3/uL (0.11-0.8); Monocytes % 7.4 % (1.7-12.7); Neutrophils % 84.2 % (38.7-73.9); Platelet Count 146 T/CUMM (130-400); Red Blood Count 4.47 MC/CUMM (3.8-5.5); Red Cell Distribution Width 15.2 % (9.3-17.3); White Blood Count 9.9 T/CUMM (4-12)
[2022-08-11 03:26] LABS: Bacteria,Urine Occasional /HPF (Few); Bilirubin,Urine Negative (Negative); Blood, Urine Moderate mg/dL (Negative); Glucose,Urine (UA) Negative (Negative); Ketones,Urine Negative (Negative); Mucus,Urine Occasional /LPF (Occasional); Nitrite,Urine Positive (Negative); Protein,Urine Negative (Negative); RBC,Urine 58 /HPF (0-4); Urine Appearance Clear (Clear); Urine Color Yellow (Yellow); Urine Urobilinogen 0.2 eU/dL (<2.0)
[2022-08-11] MEDS ORDERED: cefTRIAXone 1,000 MG in SODIUM CHLORIDE 0.9% 100 ML IV STA (03:27)
[2022-08-11 03:30] LABS: Albumin 3.1 G/DL (3.4-5.0); Bilirubin,Total 0.5 MG/DL (0.20-1.00); Calcium 8.6 MG/DL (8.5-10.1); Osmolality,Calculated 278.5 MOS/KG (273-304); Potassium 3.6 MMOL/L (3.5-5.1)
[2022-08-11 03:39] LABS: PT Patient Result 10.9 SECS (10.1-12.1)
[2022-08-11] MEDS ORDERED: ENOXAPARIN 100 MG/ML SYRINGE SUBCUT STA (04:13)
[2022-08-11] MEDS ORDERED: DEXTROSE 10% 250 ML BAG IV PRN (04:44)
[2022-08-11] MEDS ORDERED: GLUCAGON 1 MG VIAL IM PRN (04:44)
[2022-08-11] MEDS ORDERED: DEXTROSE 50% 25 GM/50 ML VIAL IV PRN (04:50)
[2022-08-11] MEDS ORDERED: ONDANSETRON 4 MG/2 ML VIAL IV PRN (04:50)
[2022-08-11] MEDS: AZITHROMYCIN INJ 500 MG in SODIUM CHLORIDE 0.9% 250 ML IV SCH (06:38)
[2022-08-11] MEDS ORDERED: ENOXAPARIN 40 MG/0.4 ML SYRINGE SUBCUT SCH (07:00)
[2022-08-11] MEDS: ALBUTEROL/IPRATROPIUM 3 ML NEB RESP TX SCH ×3 (07:01→19:24)
[2022-08-11 09:23] LABS: Arterial Base Excess iSTAT -2 MMOL/L (-2.5-2.5); Arterial Bicarbonate iSTAT 25.1 MMOL/L (20-26); Arterial O2 Saturation iSTAT 98 % (95-100); Arterial PCO2 iSTAT 51 MM HG (35-48); Arterial PO2 iSTAT 113 MM HG (80-95); Arterial Total CO2 iSTAT 27 MMO/L (23-27); Arterial pH iSTAT 7.301 (7.35-7.45)
[2022-08-11] MEDS: INSULIN REGULAR 100 UNIT/ML SUBCUT SCH ×4 (11:21→21:16)
[2022-08-11] MEDS: PANTOPRAZOLE 40 MG TABLET PO SCH (11:25)
[2022-08-11] MEDS ORDERED: INFLUENZA VIRUS VACCINE 0.5 ML SYRINGE IM ONE (11:57)
[2022-08-11] MEDS ORDERED: PNEUMOCOCCAL VACCINE (13 VALENT) 0.5 ML SYRINGE IM ONE (11:59)
[2022-08-11] MEDS: methylPREDNISolone SOD SUC 40 MG/1 ML VIAL IV SCH ×2 (13:15→20:35)
[2022-08-11 13:28] LABS: Arterial Base Excess iSTAT 0 MMOL/L (-2.5-2.5); Arterial Bicarbonate iSTAT 25.1 MMOL/L (20-26); Arterial O2 Saturation iSTAT 99 % (95-100); Arterial PCO2 iSTAT 44 MM HG (35-48); Arterial PO2 iSTAT 135 MM HG (80-95); Arterial Total CO2 iSTAT 26 MMO/L (23-27); Arterial pH iSTAT 7.369 (7.35-7.45)
[2022-08-11] MEDS ORDERED: NITROGLYCERIN SL 0.4 MG TABLET SL PRN (14:02)
[2022-08-11] MEDS: ROSUVASTATIN 20 MG TABLET PO SCH (20:35)
[2022-08-11] MEDS: BUDESONIDE/FORMOTEROL 160-4.5 INHALER 6 GM INH SCH (20:35)
[2022-08-11] MEDS: SERTRALINE 100 MG TABLET PO SCH (20:35)
[2022-08-11] MEDS: cefTRIAXone 1,000 MG in SODIUM CHLORIDE 0.9% 100 ML IV SCH (20:36)
[2022-08-12] MEDS: ALBUTEROL/IPRATROPIUM 3 ML NEB RESP TX SCH ×4 (00:50→19:05)
[2022-08-12 04:19] LABS: Hematocrit 35.3 VOL% (42.0-52.0); Hemoglobin 11.1 GM/DL (14.0-18.0); Immature Granulocytes % 0.6 %; Immature Granulocytes Absolute 0.03 #; Lymphocytes # 0.6 10*3/uL (1.4-4.0); Lymphocytes % 11.9 % (21.2-54.2); Mean Corpuscular HGB Conc 31.4 GM/DL (32-36); Mean Corpuscular Volume 86.5 FL (87-102); Monocytes # 0.3 10*3/uL (0.11-0.8); Monocytes % 5.6 % (1.7-12.7); Neutrophils % 81.9 % (38.7-73.9); Platelet Count 109 T/CUMM (130-400); Red Blood Count 4.08 MC/CUMM (3.8-5.5); Red Cell Distribution Width 15.1 % (9.3-17.3); White Blood Count 4.6 T/CUMM (4-12)
[2022-08-12] MEDS: methylPREDNISolone SOD SUC 40 MG/1 ML VIAL IV SCH ×2 (04:37→20:24)
[2022-08-12 04:40] LABS: Calcium 8.4 MG/DL (8.5-10.1); Osmolality,Calculated 286.4 MOS/KG (273-304); Potassium 4.6 MMOL/L (3.5-5.1)
[2022-08-12 04:42] LABS: Hypochromia Slight; Microcytosis Slight
[2022-08-12 04:43] LABS: Albumin 2.9 G/DL (3.4-5.0); Bilirubin,Total 0.4 MG/DL (0.20-1.00); Calcium 8.3 MG/DL (8.5-10.1); Osmolality,Calculated 286.4 MOS/KG (273-304); Potassium 4.8 MMOL/L (3.5-5.1)
[2022-08-12] MEDS ORDERED: cefTRIAXone 2,000 MG in SODIUM CHLORIDE 0.9% 100 ML IV SCH (05:00)
[2022-08-12] MEDS: AZITHROMYCIN INJ 500 MG in SODIUM CHLORIDE 0.9% 250 ML IV SCH (06:09)
[2022-08-12] MEDS: LEVOTHYROXINE 112 MCG TABLET PO SCH (06:10)
[2022-08-12 08:34] LABS: Arterial Base Excess iSTAT -1 MMOL/L (-2.5-2.5); Arterial Bicarbonate iSTAT 24.5 MMOL/L (20-26); Arterial O2 Saturation iSTAT 88 % (95-100); Arterial PCO2 iSTAT 42 MM HG (35-48); Arterial PO2 iSTAT 57 MM HG (80-95); Arterial Total CO2 iSTAT 26 MMO/L (23-27); Arterial pH iSTAT 7.379 (7.35-7.45)
[2022-08-12] MEDS: ENOXAPARIN 40 MG/0.4 ML SYRINGE SUBCUT SCH (08:44)
[2022-08-12] MEDS: ISOSORBIDE MONONITRATE 60 MG TABLET PO SCH (08:45)
[2022-08-12] MEDS: TAMSULOSIN 0.4 MG CAPSULE PO SCH (08:45)
[2022-08-12] MEDS: SERTRALINE 100 MG TABLET PO SCH ×2 (08:45→20:24)
[2022-08-12] MEDS: INSULIN REGULAR 100 UNIT/ML SUBCUT SCH ×4 (08:45→20:16)
[2022-08-12] MEDS: carvediloL 3.125 MG TABLET PO SCH (08:45)
[2022-08-12] MEDS: PANTOPRAZOLE 40 MG TABLET PO SCH (08:45)
[2022-08-12] MEDS: BUDESONIDE/FORMOTEROL 160-4.5 INHALER 6 GM INH SCH ×2 (08:46→20:25)
[2022-08-12] MEDS: cefTRIAXone 1,000 MG in SODIUM CHLORIDE 0.9% 100 ML IV SCH (20:24)
[2022-08-12] MEDS: ROSUVASTATIN 20 MG TABLET PO SCH (20:24)
[2022-08-12] MEDS ORDERED: DICLOFENAC 1% GEL 100 GM TUBE TOP PRN (21:36)
[2022-08-13] MEDS: ALBUTEROL/IPRATROPIUM 3 ML NEB RESP TX SCH ×4 (00:02→19:31)
[2022-08-13 05:38] LABS: Basophils % 0.1 % (0.0-0.8); Hematocrit 36.6 VOL% (42.0-52.0); Hemoglobin 11.4 GM/DL (14.0-18.0); Immature Granulocytes % 0.7 %; Immature Granulocytes Absolute 0.05 #; Lymphocytes # 0.7 10*3/uL (1.4-4.0); Lymphocytes % 9.1 % (21.2-54.2); Mean Corpuscular HGB Conc 31.1 GM/DL (32-36); Mean Corpuscular Volume 86.9 FL (87-102); Mean Platelet Volume 12.8 FL (9.6-12.0); Monocytes # 0.5 10*3/uL (0.11-0.8); Monocytes % 6.2 % (1.7-12.7); Neutrophils % 83.9 % (38.7-73.9); Platelet Count 116 T/CUMM (130-400); Red Blood Count 4.21 MC/CUMM (3.8-5.5); Red Cell Distribution Width 15.3 % (9.3-17.3); White Blood Count 7.3 T/CUMM (4-12)
[2022-08-13] MEDS: AZITHROMYCIN INJ 500 MG in SODIUM CHLORIDE 0.9% 250 ML IV SCH (05:39)
[2022-08-13] MEDS: LEVOTHYROXINE 112 MCG TABLET PO SCH (05:42)
[2022-08-13 05:54] LABS: Calcium 8.7 MG/DL (8.5-10.1); Osmolality,Calculated 281.8 MOS/KG (273-304); Potassium 4.7 MMOL/L (3.5-5.1)
[2022-08-13] MEDS: INSULIN REGULAR 100 UNIT/ML SUBCUT SCH ×4 (07:39→20:31)
[2022-08-13] MEDS: methylPREDNISolone SOD SUC 40 MG/1 ML VIAL IV SCH ×2 (08:30→21:03)
[2022-08-13] MEDS: carvediloL 3.125 MG TABLET PO SCH (08:32)
[2022-08-13] MEDS: ENOXAPARIN 40 MG/0.4 ML SYRINGE SUBCUT SCH (08:33)
[2022-08-13] MEDS: SERTRALINE 100 MG TABLET PO SCH ×2 (08:33→21:03)
[2022-08-13] MEDS: TAMSULOSIN 0.4 MG CAPSULE PO SCH (08:33)
[2022-08-13] MEDS: BUDESONIDE/FORMOTEROL 160-4.5 INHALER 6 GM INH SCH ×2 (08:33→21:03)
[2022-08-13] MEDS: PANTOPRAZOLE 40 MG TABLET PO SCH (08:33)
[2022-08-13] MEDS: ISOSORBIDE MONONITRATE 60 MG TABLET PO SCH (08:33)
[2022-08-13] MEDS: ROSUVASTATIN 20 MG TABLET PO SCH (21:03)
[2022-08-13] MEDS: cefTRIAXone 1,000 MG in SODIUM CHLORIDE 0.9% 100 ML IV SCH (21:03)
[2022-08-14] MEDS: ALBUTEROL/IPRATROPIUM 3 ML NEB RESP TX SCH ×3 (00:47→13:27)
[2022-08-14 05:09] LABS: Basophils % 0.2 % (0.0-0.8); Hematocrit 34.5 VOL% (42.0-52.0); Hemoglobin 10.9 GM/DL (14.0-18.0); Immature Granulocytes % 0.2 %; Immature Granulocytes Absolute 0.01 #; Lymphocytes # 0.5 10*3/uL (1.4-4.0); Lymphocytes % 8.9 % (21.2-54.2); Mean Corpuscular HGB Conc 31.6 GM/DL (32-36); Mean Corpuscular Volume 85.6 FL (87-102); Mean Platelet Volume 13.1 FL (9.6-12.0); Monocytes # 0.2 10*3/uL (0.11-0.8); Monocytes % 3.7 % (1.7-12.7); Platelet Count 94 T/CUMM (130-400); Red Blood Count 4.03 MC/CUMM (3.8-5.5); Red Cell Distribution Width 15.1 % (9.3-17.3)
[2022-08-14 05:11] LABS: Calcium 8.5 MG/DL (8.5-10.1); Potassium 4.6 MMOL/L (3.5-5.1)
[2022-08-14] MEDS: AZITHROMYCIN INJ 500 MG in SODIUM CHLORIDE 0.9% 250 ML IV SCH (05:15)
[2022-08-14] MEDS: LEVOTHYROXINE 112 MCG TABLET PO SCH (05:32)
[2022-08-14 05:42] LABS: Platelet Estimate Decreased
[2022-08-14 05:43] LABS: Anisocytosis 1+; Burr Cells Few; Tear Drop Cells Few
[2022-08-14] MEDS: INSULIN REGULAR 100 UNIT/ML SUBCUT SCH ×2 (07:58→12:30)
[2022-08-14] MEDS: methylPREDNISolone SOD SUC 40 MG/1 ML VIAL IV SCH (08:20)
[2022-08-14] MEDS: ENOXAPARIN 40 MG/0.4 ML SYRINGE SUBCUT SCH (08:21)
[2022-08-14] MEDS: carvediloL 3.125 MG TABLET PO SCH (08:22)
[2022-08-14] MEDS: PANTOPRAZOLE 40 MG TABLET PO SCH (08:22)
[2022-08-14] MEDS: ISOSORBIDE MONONITRATE 60 MG TABLET PO SCH (08:22)
[2022-08-14] MEDS: TAMSULOSIN 0.4 MG CAPSULE PO SCH (08:22)
[2022-08-14] MEDS: SERTRALINE 100 MG TABLET PO SCH (08:22)
[2022-08-14] MEDS: BUDESONIDE/FORMOTEROL 160-4.5 INHALER 6 GM INH SCH (08:23)
[2022-08-14 16:21] VITALS: BP 136/74
[2022-08-15] MEDS ORDERED: predniSONE 20 MG TABLET PO SCH (09:00)
[2022-08-15] MEDS ORDERED: LEVOFLOXACIN 500 MG TABLET PO SCH (09:00)
== END 2022-08-14 15:35 | disposition home or self-care (01) | DRG 193 ==
LOC: N.ED 02:06 → SUATTDRO 04:44 → N.EDINP 04:44 → N.CC 11:30 → N.TELES 08-14 12:03
PROVIDERS: ADMIT Internal Medicine; ATTEND Hospitalist

== ENCOUNTER 2022-09-04 21:26 | Observation (INO) ==
[2022-09-04 22:03] LABS: Basophils % 0.2 % (0.0-0.8); Eosinophils # 0.2 10*3/uL (0.0-0.87); Eosinophils % 1.1 % (0.00-10.9); Hematocrit 42.1 VOL% (42.0-52.0); Hemoglobin 13.7 GM/DL (14.0-18.0); Immature Granulocytes % 0.4 %; Immature Granulocytes Absolute 0.06 #; Lymphocytes # 1.3 10*3/uL (1.4-4.0); Lymphocytes % 9.7 % (21.2-54.2); Mean Corpuscular HGB Conc 32.5 GM/DL (32-36); Mean Corpuscular Volume 83.5 FL (87-102); Mean Platelet Volume 13.3 FL (9.6-12.0); Monocytes # 0.9 10*3/uL (0.11-0.8); Monocytes % 6.5 % (1.7-12.7); Neutrophils % 82.1 % (38.7-73.9); Platelet Count 144 T/CUMM (130-400); Red Blood Count 5.04 MC/CUMM (3.8-5.5); Red Cell Distribution Width 15.1 % (9.3-17.3); White Blood Count 13.4 T/CUMM (4-12)
[2022-09-04 22:19] LABS: Albumin 2.6 G/DL (3.4-5.0); Bilirubin,Total 0.7 MG/DL (0.20-1.00); Osmolality,Calculated 278.7 MOS/KG (273-304); Potassium 3.1 MMOL/L (3.5-5.1); Total Protein 7.5 G/DL (6.4-8.2)
[2022-09-04 22:46] LABS: Band Neutrophils 9 % (0-10); Eosinophils 1 % (0-10); Lymphocytes 9 % (20-55); Platelet Estimate Decreased; Total Cells Counted 100
[2022-09-04] MEDS ORDERED: DEXTROSE 10% 1,000 ML IV SCH (23:45)
[2022-09-04] MEDS ORDERED: POTASSIUM CHLORIDE 20 MEQ TABLET PO STA (23:55)
[2022-09-05] MEDS ORDERED: GLUCAGON 1 MG VIAL IM PRN (01:10)
[2022-09-05] MEDS ORDERED: ONDANSETRON 4 MG/2 ML VIAL IV PRN (01:10)
[2022-09-05] MEDS ORDERED: ACETAMINOPHEN 325 MG TABLET PO PRN (01:10)
[2022-09-05] MEDS ORDERED: ALBUTEROL/IPRATROPIUM 3 ML NEB RESP TX PRN (01:10)
[2022-09-05] MEDS ORDERED: DOCUSATE SODIUM 100 MG CAPSULE PO PRN (01:10)
[2022-09-05] MEDS ORDERED: POTASSIUM CHLORIDE 20 MEQ TABLET PO ONE (01:20)
[2022-09-05] MEDS ORDERED: POTASSIUM CHLORIDE 20 MEQ TABLET PO PRN (01:21)
[2022-09-05] MEDS ORDERED: DEXTROSE 10% 250 ML BAG IV PRN (01:24)
[2022-09-05] MEDS ORDERED: LACTATED RINGERS 1,000 ML IV SCH (01:30)
[2022-09-05] MEDS: DEXTROSE 5% NACL 0.45% 1,000 ML IV SCH ×2 (02:00→09:44)
[2022-09-05] MEDS ORDERED: INFLUENZA VIRUS VACCINE 0.5 ML SYRINGE IM ONE (05:39)
[2022-09-05 06:10] LABS: Basophils % 0.3 % (0.0-0.8); Eosinophils # 0.1 10*3/uL (0.0-0.87); Eosinophils % 1.6 % (0.00-10.9); Hematocrit 39.1 VOL% (42.0-52.0); Hemoglobin 12.2 GM/DL (14.0-18.0); Immature Granulocytes % 0.3 %; Immature Granulocytes Absolute 0.02 #; Lymphocytes # 1.6 10*3/uL (1.4-4.0); Lymphocytes % 25.1 % (21.2-54.2); Mean Corpuscular HGB Conc 31.2 GM/DL (32-36); Monocytes # 0.5 10*3/uL (0.11-0.8); Monocytes % 8.1 % (1.7-12.7); Neutrophils % 64.6 % (38.7-73.9); Red Cell Distribution Width 15.3 % (9.3-17.3); White Blood Count 6.3 T/CUMM (4-12)
[2022-09-05 06:22] LABS: Platelet Count 102 T/CUMM (130-400)
[2022-09-05 06:32] LABS: Osmolality,Calculated 284.7 MOS/KG (273-304); Potassium 4.2 MMOL/L (3.5-5.1)
[2022-09-05 06:35] LABS: Hypochromia Slight; Microcytosis Slight
[2022-09-05] MEDS ORDERED: NITROGLYCERIN SL 0.4 MG TABLET SL PRN (12:06)
[2022-09-05] MEDS ORDERED: LORazepam 1 MG TABLET PO PRN (12:06)
[2022-09-05] MEDS: TAMSULOSIN 0.4 MG CAPSULE PO SCH (13:15)
[2022-09-05] MEDS ORDERED: ROSUVASTATIN 20 MG TABLET PO SCH (21:00)
[2022-09-05] MEDS: SERTRALINE 100 MG TABLET PO SCH (21:02)
[2022-09-05] MEDS: GABAPENTIN 300 MG CAPSULE PO SCH (21:02)
[2022-09-06 02:44] LABS: Bacteria,Urine Occasional /HPF (Few); RBC,Urine 20 /HPF (0-4)
[2022-09-06 02:45] LABS: Bilirubin,Urine Negative (Negative); Blood, Urine Moderate mg/dL (Negative); Glucose,Urine (UA) Negative (Negative); Ketones,Urine Negative (Negative); Nitrite,Urine Negative (Negative); Protein,Urine Negative (Negative); Urine Appearance Clear (Clear); Urine Color Yellow (Yellow); Urine Specific Gravity 1.015 (1.001-1.035); Urine Urobilinogen 0.2 eU/dL (<2.0); Urine pH 6.5 (4.5-8.0)
[2022-09-06 05:03] VITALS: BP 120/72
[2022-09-06 06:02] LABS: Basophils % 0.3 % (0.0-0.8); Eosinophils # 0.2 10*3/uL (0.0-0.87); Eosinophils % 2.5 % (0.00-10.9); Hematocrit 38.8 VOL% (42.0-52.0); Hemoglobin 12.4 GM/DL (14.0-18.0); Immature Granulocytes % 0.3 %; Immature Granulocytes Absolute 0.02 #; Lymphocytes # 1.6 10*3/uL (1.4-4.0); Lymphocytes % 25.5 % (21.2-54.2); Mean Corpuscular Volume 84.2 FL (87-102); Monocytes # 0.4 10*3/uL (0.11-0.8); Monocytes % 6.7 % (1.7-12.7); Neutrophils % 64.7 % (38.7-73.9); Red Blood Count 4.61 MC/CUMM (3.8-5.5); Red Cell Distribution Width 15.5 % (9.3-17.3); White Blood Count 6.1 T/CUMM (4-12)
[2022-09-06 06:05] LABS: Platelet Count 82 T/CUMM (130-400)
[2022-09-06 06:18] LABS: Osmolality,Calculated 282.7 MOS/KG (273-304); Potassium 5.1 MMOL/L (3.5-5.1)
[2022-09-06 06:29] LABS: Platelet Estimate Decreased
[2022-09-06 06:30] LABS: Hypochromia Slight; Microcytosis Slight
[2022-09-06] MEDS ORDERED: LEVOTHYROXINE 112 MCG TABLET PO SCH (06:30)
[2022-09-06] MEDS: SERTRALINE 100 MG TABLET PO SCH (08:26)
[2022-09-06] MEDS: TAMSULOSIN 0.4 MG CAPSULE PO SCH (08:26)
[2022-09-06] MEDS: GABAPENTIN 300 MG CAPSULE PO SCH (08:27)
[2022-09-06] MEDS: DEXTROSE 5% NACL 0.45% 1,000 ML IV SCH (08:32)
== END 2022-09-06 12:44 | disposition home or self-care (01) ==
LOC: EDUNIT# → EDBD → N.TELEN 21:26 → N.ED 21:26 → SUATTDRO 09-05 00:27 → N.TELEN 09-05 01:29
PROVIDERS: ADMIT Hospitalist; ATTEND Internal Medicine

== ENCOUNTER 2023-01-12 21:50 | Inpatient (IN) ==
[2023-01-12] MEDS ORDERED: ONDANSETRON 4 MG/2 ML VIAL IV STA (22:53)
[2023-01-12] MEDS ORDERED: MORPHINE 2 MG/1 ML SYRINGE IV STA (22:53)
[2023-01-12 23:02] LABS: Basophils % 0.3 % (0.0-0.8); Eosinophils # 0.1 10*3/uL (0.0-0.87); Eosinophils % 1.1 % (0.00-10.9); Hematocrit 35.7 VOL% (42.0-52.0); Hemoglobin 11.5 GM/DL (14.0-18.0); Immature Granulocytes % 0.3 %; Immature Granulocytes Absolute 0.02 #; Lymphocytes # 0.5 10*3/uL (1.4-4.0); Lymphocytes % 6.7 % (21.2-54.2); Mean Corpuscular HGB Conc 32.2 GM/DL (32-36); Mean Corpuscular Volume 91.5 FL (87-102); Mean Platelet Volume 12.5 FL (9.6-12.0); Monocytes # 0.5 10*3/uL (0.11-0.8); Monocytes % 7.3 % (1.7-12.7); Neutrophils % 84.3 % (38.7-73.9); Platelet Count 104 T/CUMM (130-400); Red Cell Distribution Width 14.9 % (9.3-17.3); White Blood Count 7.17 T/CUMM (4-12)
[2023-01-12 23:16] LABS: Albumin 3.9 G/DL (3.4-5.0); Bilirubin,Total 1.3 MG/DL (0.20-1.00); Calcium 8.8 MG/DL (8.5-10.1); Osmolality,Calculated 287.4 MOS/KG (273-304); Potassium 4.2 MMOL/L (3.5-5.1); Total Protein 7.1 G/DL (6.4-8.2)
[2023-01-13] MEDS ORDERED: cefTRIAXone 1,000 MG in SODIUM CHLORIDE 0.9% 100 ML IV STA (02:23)
[2023-01-13] MEDS ORDERED: GLUCAGON 1 MG VIAL IM PRN (02:57)
[2023-01-13] MEDS ORDERED: DEXTROSE 10% 250 ML BAG IV PRN (03:16)
[2023-01-13] MEDS: AZITHROMYCIN INJ 500 MG in SODIUM CHLORIDE 0.9% 250 ML IV SCH (04:05)
[2023-01-13] MEDS: ONDANSETRON 4 MG/2 ML VIAL IV PRN ×2 (04:30→09:08)
[2023-01-13] MEDS: MORPHINE 2 MG/1 ML SYRINGE IV PRN ×3 (04:30→20:52)
[2023-01-13] MEDS: ENOXAPARIN 40 MG/0.4 ML SYRINGE SUBCUT SCH (09:02)
[2023-01-13] MEDS: PANTOPRAZOLE 40 MG TABLET PO SCH (09:03)
[2023-01-13] MEDS: LIDOCAINE 5% PATCH TRANSDERM SCH (09:13)
[2023-01-13] MEDS: ASPIRIN EC 81 MG TABLET PO SCH (12:57)
[2023-01-13] MEDS: MONTELUKAST 10 MG TABLET PO SCH (12:57)
[2023-01-13] MEDS ORDERED: SERTRALINE 100 MG TABLET PO ONE (13:00)
[2023-01-13] MEDS: INSULIN REGULAR 100 UNIT/ML SUBCUT SCH ×3 (18:09→20:52)
[2023-01-13] MEDS: FERROUS SULFATE 325 MG TABLET PO SCH (18:09)
[2023-01-13] MEDS: OXYBUTYNIN 5 MG TABLET PO SCH (20:51)
[2023-01-13] MEDS: ROSUVASTATIN 20 MG TABLET PO SCH (20:51)
[2023-01-14] MEDS: MORPHINE 2 MG/1 ML SYRINGE IV PRN ×3 (04:19→20:59)
[2023-01-14] MEDS: AZITHROMYCIN INJ 500 MG in SODIUM CHLORIDE 0.9% 250 ML IV SCH (04:19)
[2023-01-14] MEDS: cefTRIAXone 1,000 MG in SODIUM CHLORIDE 0.9% 100 ML IV SCH (04:20)
[2023-01-14] MEDS: LEVOTHYROXINE 112 MCG TABLET PO SCH (05:41)
[2023-01-14 05:51] LABS: Basophils % 0.2 % (0.0-0.8); Eosinophils # 0.3 10*3/uL (0.0-0.87); Hematocrit 32.9 VOL% (42.0-52.0); Hemoglobin 10.6 GM/DL (14.0-18.0); Immature Granulocytes % 0.5 %; Immature Granulocytes Absolute 0.04 #; Lymphocytes # 0.9 10*3/uL (1.4-4.0); Lymphocytes % 11.2 % (21.2-54.2); Mean Corpuscular HGB Conc 32.2 GM/DL (32-36); Mean Corpuscular Volume 92.2 FL (87-102); Mean Platelet Volume 12.4 FL (9.6-12.0); Monocytes # 0.5 10*3/uL (0.11-0.8); Monocytes % 5.8 % (1.7-12.7); Neutrophils % 78.3 % (38.7-73.9); Platelet Count 92 T/CUMM (130-400); Red Blood Count 3.57 MC/CUMM (3.8-5.5); Red Cell Distribution Width 15.1 % (9.3-17.3); White Blood Count 8.27 T/CUMM (4-12)
[2023-01-14 06:09] LABS: Band Neutrophils 3 % (0-10); Eosinophils 4 % (0-10); Hypochromia Slight; Lymphocytes 11 % (20-55); Microcytosis Slight; Platelet Estimate Decreased; Total Cells Counted 100
[2023-01-14 06:28] LABS: Calcium 8.6 MG/DL (8.5-10.1); Osmolality,Calculated 290.4 MOS/KG (273-304); Potassium 5.2 MMOL/L (3.5-5.1)
[2023-01-14 06:31] LABS: Albumin 2.9 G/DL (3.4-5.0); Bilirubin,Total 0.8 MG/DL (0.20-1.00); Calcium 8.6 MG/DL (8.5-10.1); Osmolality,Calculated 289.4 MOS/KG (273-304); Potassium 4.2 MMOL/L (3.5-5.1); Total Protein 6.5 G/DL (6.4-8.2)
[2023-01-14] MEDS: INSULIN REGULAR 100 UNIT/ML SUBCUT SCH ×4 (08:15→21:00)
[2023-01-14] MEDS: ASPIRIN EC 81 MG TABLET PO SCH (09:12)
[2023-01-14] MEDS: ENOXAPARIN 40 MG/0.4 ML SYRINGE SUBCUT SCH (09:12)
[2023-01-14] MEDS: SERTRALINE 100 MG TABLET PO SCH (09:12)
[2023-01-14] MEDS: PANTOPRAZOLE 40 MG TABLET PO SCH (09:12)
[2023-01-14] MEDS: MONTELUKAST 10 MG TABLET PO SCH (09:12)
[2023-01-14] MEDS: FERROUS SULFATE 325 MG TABLET PO SCH ×3 (09:12→16:58)
[2023-01-14] MEDS: LIDOCAINE 5% PATCH TRANSDERM SCH (09:13)
[2023-01-14] MEDS: OXYBUTYNIN 5 MG TABLET PO SCH (21:00)
[2023-01-14] MEDS: ROSUVASTATIN 20 MG TABLET PO SCH (21:00)
[2023-01-15] MEDS: cefTRIAXone 1,000 MG in SODIUM CHLORIDE 0.9% 100 ML IV SCH (04:00)
[2023-01-15] MEDS: AZITHROMYCIN INJ 500 MG in SODIUM CHLORIDE 0.9% 250 ML IV SCH (04:01)
[2023-01-15] MEDS: MORPHINE 2 MG/1 ML SYRINGE IV PRN (04:10)
[2023-01-15 05:16] LABS: Basophils % 0.3 % (0.0-0.8); Eosinophils # 0.3 10*3/uL (0.0-0.87); Eosinophils % 4.7 % (0.00-10.9); Hematocrit 33.1 VOL% (42.0-52.0); Hemoglobin 10.5 GM/DL (14.0-18.0); Immature Granulocytes % 0.4 %; Immature Granulocytes Absolute 0.03 #; Lymphocytes # 0.9 10*3/uL (1.4-4.0); Lymphocytes % 12.9 % (21.2-54.2); Mean Corpuscular HGB Conc 31.7 GM/DL (32-36); Mean Corpuscular Volume 92.5 FL (87-102); Mean Platelet Volume 12.4 FL (9.6-12.0); Monocytes # 0.5 10*3/uL (0.11-0.8); Monocytes % 7.2 % (1.7-12.7); Neutrophils % 74.5 % (38.7-73.9); Platelet Count 103 T/CUMM (130-400); Red Blood Count 3.58 MC/CUMM (3.8-5.5); Red Cell Distribution Width 14.9 % (9.3-17.3); White Blood Count 7.08 T/CUMM (4-12)
[2023-01-15] MEDS: LEVOTHYROXINE 112 MCG TABLET PO SCH (05:38)
[2023-01-15] MEDS: ASPIRIN EC 81 MG TABLET PO SCH (09:25)
[2023-01-15] MEDS: SERTRALINE 100 MG TABLET PO SCH (09:25)
[2023-01-15] MEDS: MONTELUKAST 10 MG TABLET PO SCH (09:25)
[2023-01-15] MEDS: PANTOPRAZOLE 40 MG TABLET PO SCH (09:25)
[2023-01-15] MEDS: LIDOCAINE 5% PATCH TRANSDERM SCH (09:26)
[2023-01-15] MEDS: INSULIN REGULAR 100 UNIT/ML SUBCUT SCH ×4 (09:26→21:54)
[2023-01-15] MEDS: ENOXAPARIN 40 MG/0.4 ML SYRINGE SUBCUT SCH (09:26)
[2023-01-15] MEDS: FERROUS SULFATE 325 MG TABLET PO SCH ×3 (09:26→16:29)
[2023-01-15] MEDS: ALBUTEROL/IPRATROPIUM 3 ML NEB RESP TX SCH ×2 (13:41→19:30)
[2023-01-15] MEDS: ROSUVASTATIN 20 MG TABLET PO SCH (21:53)
[2023-01-15] MEDS: OXYBUTYNIN 5 MG TABLET PO SCH (21:53)
[2023-01-16] MEDS: ALBUTEROL/IPRATROPIUM 3 ML NEB RESP TX SCH ×2 (00:53→07:16)
[2023-01-16] MEDS: cefTRIAXone 1,000 MG in SODIUM CHLORIDE 0.9% 100 ML IV SCH (03:18)
[2023-01-16] MEDS: AZITHROMYCIN INJ 500 MG in SODIUM CHLORIDE 0.9% 250 ML IV SCH (04:07)
[2023-01-16] MEDS: LEVOTHYROXINE 112 MCG TABLET PO SCH (06:23)
[2023-01-16] MEDS: INSULIN REGULAR 100 UNIT/ML SUBCUT SCH ×2 (08:48→12:03)
[2023-01-16] MEDS: ENOXAPARIN 40 MG/0.4 ML SYRINGE SUBCUT SCH (09:15)
[2023-01-16] MEDS: MONTELUKAST 10 MG TABLET PO SCH (09:15)
[2023-01-16] MEDS: SERTRALINE 100 MG TABLET PO SCH (09:15)
[2023-01-16] MEDS: LIDOCAINE 5% PATCH TRANSDERM SCH (09:15)
[2023-01-16] MEDS: ASPIRIN EC 81 MG TABLET PO SCH (09:16)
[2023-01-16] MEDS: FERROUS SULFATE 325 MG TABLET PO SCH (09:16)
[2023-01-16] MEDS: PANTOPRAZOLE 40 MG TABLET PO SCH (09:16)
[2023-01-16 11:32] VITALS: BP 147/67
== END 2023-01-16 13:56 | disposition home health service (06) | DRG 194 ==
LOC: EDUNIT# → EDBD → N.ED 21:50 → N.EDINP 01-13 02:57 → SUATTDRO 01-13 02:57 → N.EDINP 01-13 12:28 → N.3E 01-13 12:33
PROVIDERS: ADMIT Internal Medicine; ATTEND Internal Medicine

== ENCOUNTER 2023-01-19 14:36 | Inpatient (IN) ==
[2023-01-19 15:53] LABS: Basophils % 0.3 % (0.0-0.8); Eosinophils # 0.1 10*3/uL (0.0-0.87); Eosinophils % 1.3 % (0.00-10.9); Hematocrit 36.6 VOL% (42.0-52.0); Hemoglobin 12.1 GM/DL (14.0-18.0); Immature Granulocytes Absolute 0.11 #; Lymphocytes # 1.1 10*3/uL (1.4-4.0); Lymphocytes % 9.8 % (21.2-54.2); Mean Corpuscular HGB Conc 33.1 GM/DL (32-36); Mean Corpuscular Volume 88.8 FL (87-102); Mean Platelet Volume 11.3 FL (9.6-12.0); Monocytes % 9.4 % (1.7-12.7); Neutrophils % 78.2 % (38.7-73.9); Platelet Count 174 T/CUMM (130-400); Red Blood Count 4.12 MC/CUMM (3.8-5.5); Red Cell Distribution Width 14.3 % (9.3-17.3); White Blood Count 11.03 T/CUMM (4-12)
[2023-01-19 16:20] LABS: Albumin 3.3 G/DL (3.4-5.0); Calcium 9.1 MG/DL (8.5-10.1); Osmolality,Calculated 285.5 MOS/KG (273-304); Potassium 3.9 MMOL/L (3.5-5.1); Total Protein 7.1 G/DL (6.4-8.2)
[2023-01-19 17:32] LABS: Urine Appearance Slightly Cloudy (Clear); Urine Color Yellow (Yellow)
[2023-01-19 17:33] LABS: Bilirubin,Urine Small mg/dL (Negative); Blood, Urine Moderate mg/dL (Negative); Glucose,Urine (UA) Negative (Negative); Ketones,Urine Negative (Negative); Nitrite,Urine Negative (Negative); Protein,Urine 30 mg/dL (Negative); Urine Urobilinogen 0.2 eU/dL (<2.0)
[2023-01-19 17:35] LABS: Hyaline Casts,Urine 1 /LPF (0-3); RBC,Urine 141 /HPF (0-4)
[2023-01-19] MEDS ORDERED: ONDANSETRON 4 MG/2 ML VIAL IV PRN (17:38)
[2023-01-19] MEDS ORDERED: DEXTROSE 10% 250 ML BAG IV PRN (17:38)
[2023-01-19] MEDS ORDERED: ALBUTEROL 2.5 MG/3 ML NEB RESP TX PRN (17:38)
[2023-01-19] MEDS ORDERED: hydrALAZINE 20 MG/1 ML VIAL IV PRN (17:38)
[2023-01-19] MEDS ORDERED: GLUCAGON 1 MG VIAL IM PRN (17:38)
[2023-01-19] MEDS ORDERED: ACETAMINOPHEN 325 MG TABLET PO PRN (17:38)
[2023-01-19] MEDS ORDERED: ONDANSETRON 4 MG/2 ML VIAL IV STA (17:42)
[2023-01-19] MEDS ORDERED: SODIUM PHOSPHATE ENEMA 133 ML BOTTLE RECTAL PRN (17:42)
[2023-01-19] MEDS ORDERED: LACTULOSE 20 GM/30 ML UDCUP PO STA (17:42)
[2023-01-19] MEDS ORDERED: NITROGLYCERIN SL 0.4 MG TABLET SL PRN (17:44)
[2023-01-19] MEDS: LACTATED RINGERS 1,000 ML IV SCH (18:26)
[2023-01-19] MEDS ORDERED: LEVALBUTEROL 1.25 MG/3 ML NEB RESP TX PRN (20:00)
[2023-01-19] MEDS: ROSUVASTATIN 20 MG TABLET PO SCH (20:59)
[2023-01-19] MEDS: DOCUSATE SODIUM 100 MG CAPSULE PO SCH (20:59)
[2023-01-19] MEDS: OXYBUTYNIN 5 MG TABLET PO SCH (20:59)
[2023-01-19] MEDS ORDERED: carvediloL 3.125 MG TABLET PO SCH (21:00)
[2023-01-19] MEDS: POLYETHYLENE GLYCOL POWDER 17 GM PACK PO SCH (21:00)
[2023-01-19] MEDS: buPROPion 75 MG TABLET PO SCH (21:00)
[2023-01-19] MEDS: INSULIN REGULAR 100 UNIT/ML SUBCUT SCH (21:01)
[2023-01-20] MEDS: LACTULOSE 20 GM/30 ML UDCUP PO SCH ×4 (00:11→17:38)
[2023-01-20] MEDS: LACTATED RINGERS 1,000 ML IV SCH ×2 (04:33→16:43)
[2023-01-20] MEDS: LEVOTHYROXINE 112 MCG TABLET PO SCH (05:14)
[2023-01-20 05:25] LABS: Basophils % 0.4 % (0.0-0.8); Eosinophils # 0.4 10*3/uL (0.0-0.87); Eosinophils % 3.2 % (0.00-10.9); Hematocrit 33.3 VOL% (42.0-52.0); Hemoglobin 11.1 GM/DL (14.0-18.0); Immature Granulocytes % 0.7 %; Immature Granulocytes Absolute 0.08 #; Lymphocytes # 1.8 10*3/uL (1.4-4.0); Lymphocytes % 16.8 % (21.2-54.2); Mean Corpuscular HGB Conc 33.3 GM/DL (32-36); Mean Corpuscular Volume 88.6 FL (87-102); Mean Platelet Volume 11.6 FL (9.6-12.0); Monocytes # 0.9 10*3/uL (0.11-0.8); Monocytes % 8.1 % (1.7-12.7); Neutrophils % 70.8 % (38.7-73.9); Platelet Count 165 T/CUMM (130-400); Red Blood Count 3.76 MC/CUMM (3.8-5.5); Red Cell Distribution Width 14.4 % (9.3-17.3); White Blood Count 10.97 T/CUMM (4-12)
[2023-01-20 05:44] LABS: Calcium 8.6 MG/DL (8.5-10.1); Osmolality,Calculated 285.4 MOS/KG (273-304); Potassium 3.9 MMOL/L (3.5-5.1)
[2023-01-20] MEDS: INSULIN REGULAR 100 UNIT/ML SUBCUT SCH ×4 (07:04→20:47)
[2023-01-20] MEDS: POLYETHYLENE GLYCOL POWDER 17 GM PACK PO SCH ×2 (08:44→20:41)
[2023-01-20] MEDS: DOCUSATE SODIUM 100 MG CAPSULE PO SCH ×2 (08:44→20:44)
[2023-01-20] MEDS: INSULIN GLARGINE 100 UNIT/ML SUBCUT SCH ×2 (08:44→09:35)
[2023-01-20] MEDS: ASPIRIN EC 81 MG TABLET PO SCH (08:45)
[2023-01-20] MEDS: PANTOPRAZOLE 40 MG TABLET PO SCH (08:45)
[2023-01-20] MEDS: carvediloL 3.125 MG TABLET PO SCH ×2 (08:45→17:04)
[2023-01-20] MEDS: TAMSULOSIN 0.4 MG CAPSULE PO SCH (08:45)
[2023-01-20] MEDS: FERROUS SULFATE 325 MG TABLET PO SCH ×3 (08:45→17:04)
[2023-01-20] MEDS: buPROPion 75 MG TABLET PO SCH ×2 (08:45→20:44)
[2023-01-20] MEDS: MONTELUKAST 10 MG TABLET PO SCH (08:45)
[2023-01-20] MEDS: ISOSORBIDE MONONITRATE 60 MG TABLET PO SCH (08:45)
[2023-01-20] MEDS ORDERED: SERTRALINE 100 MG TABLET PO SCH (09:00)
[2023-01-20] MEDS: ROSUVASTATIN 20 MG TABLET PO SCH (20:44)
[2023-01-20] MEDS: OXYBUTYNIN 5 MG TABLET PO SCH (20:44)
[2023-01-21] MEDS: LACTULOSE 20 GM/30 ML UDCUP PO SCH ×5 (01:05→23:09)
[2023-01-21] MEDS: LACTATED RINGERS 1,000 ML IV SCH ×2 (01:11→17:55)
[2023-01-21] MEDS: LEVOTHYROXINE 112 MCG TABLET PO SCH (05:07)
[2023-01-21 05:47] LABS: Basophils % 0.4 % (0.0-0.8); Eosinophils # 0.4 10*3/uL (0.0-0.87); Eosinophils % 5.4 % (0.00-10.9); Hematocrit 32.8 VOL% (42.0-52.0); Hemoglobin 10.8 GM/DL (14.0-18.0); Immature Granulocytes % 0.7 %; Immature Granulocytes Absolute 0.05 #; Lymphocytes # 1.8 10*3/uL (1.4-4.0); Lymphocytes % 26.2 % (21.2-54.2); Mean Corpuscular HGB Conc 32.9 GM/DL (32-36); Mean Corpuscular Volume 90.1 FL (87-102); Mean Platelet Volume 11.8 FL (9.6-12.0); Monocytes # 0.5 10*3/uL (0.11-0.8); Monocytes % 7.7 % (1.7-12.7); Neutrophils % 59.6 % (38.7-73.9); Platelet Count 156 T/CUMM (130-400); Red Blood Count 3.64 MC/CUMM (3.8-5.5); Red Cell Distribution Width 14.4 % (9.3-17.3); White Blood Count 6.72 T/CUMM (4-12)
[2023-01-21 05:56] LABS: Calcium 8.5 MG/DL (8.5-10.1); Osmolality,Calculated 284.4 MOS/KG (273-304); Potassium 4.2 MMOL/L (3.5-5.1)
[2023-01-21] MEDS: INSULIN REGULAR 100 UNIT/ML SUBCUT SCH ×4 (08:45→20:21)
[2023-01-21] MEDS: ISOSORBIDE MONONITRATE 60 MG TABLET PO SCH (09:47)
[2023-01-21] MEDS: buPROPion 75 MG TABLET PO SCH ×2 (09:47→20:55)
[2023-01-21] MEDS: MONTELUKAST 10 MG TABLET PO SCH (09:48)
[2023-01-21] MEDS: carvediloL 3.125 MG TABLET PO SCH ×2 (09:48→17:55)
[2023-01-21] MEDS: DOCUSATE SODIUM 100 MG CAPSULE PO SCH ×2 (09:48→20:55)
[2023-01-21] MEDS: FERROUS SULFATE 325 MG TABLET PO SCH ×3 (09:48→17:55)
[2023-01-21] MEDS: ASPIRIN EC 81 MG TABLET PO SCH (09:48)
[2023-01-21] MEDS: TAMSULOSIN 0.4 MG CAPSULE PO SCH (09:48)
[2023-01-21] MEDS: POLYETHYLENE GLYCOL POWDER 17 GM PACK PO SCH (09:49)
[2023-01-21] MEDS: PANTOPRAZOLE 40 MG TABLET PO SCH (09:49)
[2023-01-21] MEDS: INSULIN GLARGINE 100 UNIT/ML SUBCUT SCH (09:53)
[2023-01-21] MEDS: ROSUVASTATIN 20 MG TABLET PO SCH (20:55)
[2023-01-21] MEDS: OXYBUTYNIN 5 MG TABLET PO SCH (20:55)
[2023-01-22] MEDS: LACTATED RINGERS 1,000 ML IV SCH (03:37)
[2023-01-22 05:11] LABS: Basophils % 0.4 % (0.0-0.8); Eosinophils # 0.3 10*3/uL (0.0-0.87); Eosinophils % 5.5 % (0.00-10.9); Hematocrit 30.6 VOL% (42.0-52.0); Immature Granulocytes % 0.8 %; Immature Granulocytes Absolute 0.04 #; Lymphocytes # 1.4 10*3/uL (1.4-4.0); Lymphocytes % 26.7 % (21.2-54.2); Mean Corpuscular HGB Conc 32.7 GM/DL (32-36); Mean Corpuscular Volume 89.7 FL (87-102); Mean Platelet Volume 11.6 FL (9.6-12.0); Monocytes # 0.4 10*3/uL (0.11-0.8); Monocytes % 7.6 % (1.7-12.7); Platelet Count 124 T/CUMM (130-400); Red Blood Count 3.41 MC/CUMM (3.8-5.5); Red Cell Distribution Width 14.2 % (9.3-17.3); White Blood Count 5.24 T/CUMM (4-12)
[2023-01-22 05:50] LABS: Calcium 8.2 MG/DL (8.5-10.1); Osmolality,Calculated 282.4 MOS/KG (273-304); Potassium 4.6 MMOL/L (3.5-5.1)
[2023-01-22] MEDS: LACTULOSE 20 GM/30 ML UDCUP PO SCH ×3 (06:03→13:46)
[2023-01-22] MEDS: LEVOTHYROXINE 112 MCG TABLET PO SCH (06:03)
[2023-01-22] MEDS: INSULIN REGULAR 100 UNIT/ML SUBCUT SCH ×2 (08:09→13:46)
[2023-01-22] MEDS ORDERED: POLYETHYLENE GLYCOL POWDER 17 GM PACK PO SCH (09:00)
[2023-01-22] MEDS: TAMSULOSIN 0.4 MG CAPSULE PO SCH (09:14)
[2023-01-22] MEDS: ISOSORBIDE MONONITRATE 60 MG TABLET PO SCH (09:14)
[2023-01-22] MEDS: MONTELUKAST 10 MG TABLET PO SCH (09:14)
[2023-01-22] MEDS: carvediloL 3.125 MG TABLET PO SCH (09:14)
[2023-01-22] MEDS: buPROPion 75 MG TABLET PO SCH (09:14)
[2023-01-22] MEDS: FERROUS SULFATE 325 MG TABLET PO SCH ×2 (09:15→13:46)
[2023-01-22] MEDS: PANTOPRAZOLE 40 MG TABLET PO SCH (09:15)
[2023-01-22] MEDS: ASPIRIN EC 81 MG TABLET PO SCH (09:15)
[2023-01-22] MEDS: DOCUSATE SODIUM 100 MG CAPSULE PO SCH (09:54)
[2023-01-22] MEDS: INSULIN GLARGINE 100 UNIT/ML SUBCUT SCH (09:54)
[2023-01-22 11:45] VITALS: BP 173/61
== END 2023-01-22 13:45 | disposition home or self-care (01) | DRG 389 ==
LOC: N.ED 14:36 → SUATTDRO 17:38 → N.EDINP 17:38 → N.3E 19:53
PROVIDERS: ADMIT Internal Medicine; ATTEND Hospitalist